=== PATIENT | female | born 1950 | race Caucasian/White ===

== ENCOUNTER 2016-11-24 15:01 | Inpatient (IN) | payer MEDICARE ==
[~2016-11-24] VITALS: Ht 165.1 cm; Wt 46.0 kg
[2016-11-24] MEDS ORDERED: LORazepam 2 MG/ML VIAL IM ONE (15:30)
[2016-11-24 16:25] LABS: BASO # 0.1 x10^3/uL (0.0-0.2); BASO % 1 % (0-3); EOS # 0.1 x10^3/uL (0.0-0.7); EOS % 2 % (0-3); HEMATOCRIT 33.4 % (36.0-47.0); LYMPH # 1.9 x10^3/uL (1.0-4.8); LYMPH % 28 % (24-48); MEAN CORPUSCULAR HEMOGLOBIN 30 pg (25-35); MEAN CORPUSCULAR HGB CONC 33 g/dL (31-37); MEAN CORPUSCULAR VOLUME 91 fL (79-100); MONO # 0.6 x10^3/uL (0.0-1.1); MONO % 9 % (0-9); NEUT # 4.2 x10^3uL (1.8-7.7); NEUT % 61 % (31-73); PLATELET COUNT 241 x10^3/uL (140-400); RED BLOOD COUNT 3.68 x10^6/uL (3.50-5.40); RED CELL DISTRIBUTION WIDTH 15.3 % (11.5-14.5); WHITE BLOOD COUNT 6.9 x10^3/uL (4.0-11.0)
[2016-11-24 16:37] LABS: ALBUMIN 3.1 g/dL (3.4-5.0); ALBUMIN/GLOBULIN RATIO 0.9 (1.0-1.7); ALK PHOS 62 U/L (46-116); ALT (SGPT) 15 U/L (14-59); ANION GAP 6 (6-14); AST (SGOT) 10 U/L (15-37); BLOOD UREA NITROGEN 21 mg/dL (7-20); BUN/CREATININE RATIO 21 (6-20); CALCIUM 8.7 mg/dL (8.5-10.1); CARBON DIOXIDE 29 mmol/L (21-32); CHLORIDE 107 mmol/L (98-107); GFR 55.8; GLUCOSE 85 mg/dL (70-99); MAGNESIUM 2.3 mg/dL (1.8-2.4); POTASSIUM 3.9 mmol/L (3.5-5.1); SODIUM 142 mmol/L (136-145); TOTAL BILIRUBIN 0.3 mg/dL (0.2-1.0); TOTAL PROTEIN 6.6 g/dL (6.4-8.2)
[2016-11-24 16:38] LABS: VAL ACID 71 mcg/mL (50-100)
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
[2016-11-24 16:58] LABS: BILIRUBIN,URINE NEG (NEG); CLARITY,URINE CLEAR; COLOR,URINE YELLOW; GLUCOSE,URINE NEG (NEG)
[2016-11-24 16:59] LABS: NITRITE,URINE NEG (NEG); UROBILINOGEN,URINE 0.2 mg/dL (0.2 mg/dL)
[2016-11-24 17:00] LABS: SQUAMOUS EPITHELIAL CELL,UR OCC /LPF; WBC,URINE OCC /HPF (0-4)
--- NOTE | 2016-11-24 20:00 | NUR ---
Pt arrived on [facility]
--- NOTE | 2016-11-24 20:00 | NUR ---
Pt arrived on [facility] via gurney. Pt transfer to low position bed in room 213. Pt not answering any of this nurses questions, is mumbling at times. Pt keeping her eyes closed during assessment. Lungs clear, dim. bases bilat. Listed on intake form, pt is a smoker. Skin warm and dry with poor tenting, pale in color. BS active, LBM unknown. Noted numerous bruising on both arms. Noted healed surgical scars on left knee with noted abnormality and is larger in size, compared to right knee. Left knee- no redness and is not warm to touch. Ambulates independently without assistive devices noted on intake form. Ht-5' 5", Wt- 99.6, BP 100/50, P-64, T-97.7, R-20, O2Sat- 94% Admit Dx-Dementia with BD. Dr. West notified. Dr. Velasquez on the unit and saw pt. at this time.
--- NOTE | 2016-11-24 22:57 | HP ---
ADMIT DATE: 11/24/2016 PSYCHIATRIC ADMISSION HISTORY/EVALUATION IDENTIFYING DATA: The patient is a 66-year-old female referred to us from [facility], [place], [place] by Dr. Mitchell, her primary care physician Dr. Nichole her psychiatrist on account of increasing confusion, being non redirectable, combative with staff and roommate. The patient's behaviors have been deemed to be dangerous, unmanageable, has failed outpatient psychiatric interventions resulting in this referral. The patient was seen individually evening of 11/24/2016. Previously discussed with nursing staff, reviewed information from residential, reviewed current past records. CHIEF COMPLAINT: "No." The patient is perhaps oriented to herself . HISTORY OF PRESENT ILLNESS: The patient has a history of dementia, Alzheimer's vascular type. She has been residing at the above residential for sometime and over the last few days, getting increasingly agitated, paranoid, delusional, aggressive. Symptoms have been worsening for about 2 months, much worse for the last few days. She has had some sleep and appetite changes. No clear suicidal or homicidal ideation. No history of bipolar disorder. PAST PSYCHIATRIC HISTORY: As above. PAST MEDICAL HISTORY: She is extremely hard of hearing, has left lower plates, history of pelvic fracture. DRUG ALLERGIES: Negative. CODE STATUS: DNR. FAMILY HISTORY: The patient's brother committed suicide. SOCIAL HISTORY: No history of alcohol, drug abuse, physical, sexual or elder abuse. She is not known to be a perpetrator. CURRENT PSYCHOTROPICS: Reviewed on the electronic medical administration records. MENTAL STATUS EXAM: The patient was seen individually shortly after she arrived in the unit. She is oriented to herself. Insight, judgment, recent and remote memory, attention, concentration, fund of knowledge poor consistent with her diagnosis. LABORATORY DATA: Reviewed. IMPRESSION: Major neurocognitive disorder, Alzheimer, vascular with depression, delusion, behavioral disturbance; anxiety disorder, unspecified; impulse control disorder, unspecified. Rest diagnoses as above. PLAN: Admit to the Geropsychiatry unit at [facility]. I will see the patient daily individually from a psychiatric standpoint. Medical followup per Dr. Patel /Dr. West. Observe the patient's baseline, then adjust psychotropics as clinically indicated. MAN Panchito SCHROEDER MD DR: Lupillo JOB#: [id number] / [id number]
--- NOTE | 2016-11-24 23:00 | NUR ---
Pt lying in bed, with eyes closed. Pt drowsy, easily aroused when doing ADL's. Will continue to monitor and report.
[2016-11-24 23:19] VITALS: BP 100/50
[2016-11-24 23:30] LABS: BACTERIA,URINE 0 /HPF (0-FEW)
[2016-11-24] MEDS ORDERED: MAGNESIUM HYDROXIDE 2,400 MG/30 ML ORAL.SUSP. PO PRN (23:30)
[2016-11-24] MEDS ORDERED: MAG HYDROX/AL HYDROX/SIMETH 30 ML ORAL.SUSP PO PRN (23:30)
[2016-11-24] MEDS ORDERED: METHYL SALICYLATE/MENTHOL TOPICAL OINTMENT 29GM TUBE. TP PRN (23:30)
[2016-11-24] MEDS ORDERED: ACETAMINOPHEN 325 MG TABLET PO PRN (23:30)
[2016-11-25] MEDS ORDERED: IBUP400T18 PO (00:36)
[2016-11-25] MEDS ORDERED: TRAM50TA PO (00:36)
[2016-11-25] MEDS ORDERED: MELA3TAB2 PO (00:36)
[2016-11-25] MEDS ORDERED: ALPR0.254 PO (00:36)
[2016-11-25] MEDS ORDERED: ATOR10TA60 PO (00:36)
[2016-11-25] MEDS ORDERED: DIVA125C PO (00:36)
[2016-11-25] MEDS ORDERED: SENN1TAB7 PO (00:36)
[2016-11-25] MEDS ORDERED: TRAZ50TA15 PO (00:36)
[2016-11-25] MEDS ORDERED: BUPR150T11 PO (00:36)
[2016-11-25] MEDS ORDERED: MULT-638 PO (00:36)
[2016-11-25] MEDS ORDERED: ASPI-630 PO (00:36)
[2016-11-25] MEDS ORDERED: QUET25TA5 PO (00:36)
[2016-11-25] MEDS ORDERED: CHOL2000 PO (00:36)
[2016-11-25] MEDS ORDERED: IBUPROFEN 400 MG TABLET. PO PRN (00:45)
[2016-11-25] MEDS ORDERED: traMADol 50 MG TABLET PO PRN (00:45)
--- NOTE | 2016-11-25 02:00 | NUR ---
Pt drowsy, lying in bed with eyes closed. Pt easily aroused when doing ADL's. Will continue to monitor and report.
[2016-11-25 06:09] VITALS: BP 105/61
--- NOTE | 2016-11-25 06:23 | ACF ---
Admission Criteria Forms [facility] Clinical Indications for Admission to Inpatient Care (Place 'X' for any and all applicable criteria): Hospital admission is needed for appropriate care of the patient because of ANY ONE of the following[A] (3)(4)(5): [ ]I. Inpatient behavioral care is needed as indicated by ALL of the following: [ ]a) Treatment is needed because of patient risk due to ANY ONE of the following: [ ]i) Imminent danger to self due to ANY ONE of the following ( 7)(8): [ ]1) Imminent risk for recurrence of a suicide attempt or act of serious self-harm as indicated by ALL of the following: [ ]A. Very recent suicide attempt or deliberate act of serious self-harm [ ]B. Absence of sufficient relief of the action' s precipitants [ ]2) Current plan for suicide or serious self-harm [ ]3) Persistent thoughts of suicide or serious self- harm that cannot be adequately monitored at a lower level of care because of ANY ONE of the following: [ ]A. Insufficient behavioral care provider availability [ ]B. Inadequate patient support system [ ]C. Patient characteristics such as high impulsivity or unreliability [ ]D. Ruminative flooding; uncontrollable and overwhelming profusion of negative thoughts [ ]E. Frantic hopelessness; fatalistic conviction that life will not improve along with oppressive sense of entrapment and doom [ ]F. Active substance use disorder is present [ ]G. Ready access to lethal means is present [ ]ii) Imminent danger to others due to ANY ONE of the following( 10)(11): [ ]1) Imminent risk for recurrence of an attempt to seriously harm another as indicated by ALL of the following: [ ]A. Very recent attempt to seriously harm another [ ]B. Absence of sufficient relief of the action' s precipitants [ ]2) Current plan for homicide or seriously harming another [ ]3) Command auditory hallucination for serious self harm to self or others [ ]4) Persistent thoughts of homicide or seriously harming another that cannot be adequately monitored at a lower level of care because of ANY ONE of the following: [ ]A. Insufficient behavioral care provider availability [ ]B. Inadequate patient support system [ ]C. Patient characteristics such as high impulsivity or unreliability [ ]D. Active substance use disorder is present [ ]E. Ready access to lethal means is present [ ]iii) Behavioral health disorder is present with ALL of the following: (12)(16)(17)(18): [ ]1) Severe psychiatric or behavioral symptoms are present , including ANY ONE of the following: [ ]A. Hallucinations that are very bothersome to patient or are associated with severe pressure to respond to voices(17)(18) [ ]B. Delusions that are very bothersome to patient or are associated with severe pressure to act on beliefs(17)(18) [ ]C. Disorganized speech that is almost impossible to follow(17)(18) [ ]D. Motor behavior that is almost constantly abnormal or bizarre or catatonic(17)(18) [ ]E. Severe negative symptoms (eg, severe decrease in facial expression or self-initiated behavior)(17)(18) [ ]F. Severe mitesh (eg, daily periods of extensive mood elevation or irritability)(19)(20)(21)(22) [ ]G. Severe depression (eg, daily symptoms of deep hopelessness)[C] [ ]H. Severe anxiety[D] [ ]I. Severe comorbid substance use disorder with inability to control use, intense withdrawal symptoms, or extreme negative impact on primary psychiatric disorder(2)(7)(25) [ ]J. Severe impairment in cognition, memory, judgment, or impulse control(26)(27) [ ]K. Severe impairment in behavior, including physical or verbal aggression, disruptive behaviors, or internal or external anger manifestations (eg, rumination or outbursts)(28) [ ]L. Other psychiatric symptoms which are acute or represent worsening over baseline (eg, hyperactivity, agitation, obsessions, or compulsions)(29)(30)(31) [ ]2) Severe dysfunction in daily living is present as indicated by ANY ONE of the following: [ ]A. Extreme deterioration in social interactions ( eg, threatening behaviors with little or no provocation) [ ]B. Complete withdrawal from all social interactions [ ]C. Complete neglect of self-care with associated impairment in physical status [ ]D. Extreme disruption in vegetative function (eg , life-sustaining functions such as eating) [ ]E. Complete inability to maintain any appropriate aspect of personal responsibility in any adult roles (eg, occupational, parental) [ ]b) Treatment situation and needs are appropriate for level as indicated by ANY ONE of the following(13)(16): [ ]i) Patient unwilling to participate voluntarily and requires treatment (eg, legal commitment) in an involuntary unit [ ]ii) Voluntary treatment at lower level not feasible (e.g., very short-term crisis intervention or residential care unavailable or unacceptable for patient condition) [ ]iii) Need for physical restraint, seclusion, or other involuntary control (e.g., actively violent patient and adequate clinical rapport cannot be established to control violence) (25) [ ]iv) [id number] medical or nursing care to address symptoms and initiate intervention is required; specific need has been identified [ ]II. Delirium as described by ANY ONE of the following (26)(27)(28): [ ]a) Delirium due to alcohol or sedative [B] withdrawal (16)(29)(30)( 31) [ ]b) Delirium of uncertain etiology that has not responded to appropriate treatment in emergency department or urgent care setting (32)(33) [ ]c) Delirium that prevents performance of a life-sustaining function (eg, feeding or hydrating oneself) (9) [ ]III. Administration of a somatic treatment that requires edatat-zef-qngae medical or nursing care because of a potential adverse physical effect or medical comorbidity(7) [X]IV. Behavioral Health condition, symptom, or finding for which emergency and observation care have failed or are not considered appropriate The original [facility] [employer] content created by [employer] [employer] has been revised. The portions of the content which have been revised are identified through the use of italic text or in bold, and [facility] has neither reviewed nor approved the modified material. All other unmodified content is copyright [facility] [employer]. Please see references footnoted in the original [facility] edition 2016 Admission Criteria Met?: Yes HARJINDER BAR Nov 25, 2016 06:23
[2016-11-25] MEDS: NICOTINE 14MG PATCH. TD SCH (09:00)
[2016-11-25] MEDS ORDERED: buPROPion SR 150 MG TABLET.SA PO SCH (09:00)
--- NOTE | 2016-11-25 09:00 | NUR ---
Patient's Piotr called to ask what the plan was for his 's care. Piotr became upset and wanted to know why she was even brought to the hospital. This RN explained to the that she was brought in by her group home staff and after several unsuccessful attempts at contacting him the patient's sister gave verbal consent for the patient to be seen and evaluated at this hospital. Visiting hours were explained and Don requested to speak with the charge nurse. Jesusita spoke with the and explained unit procedures. Will continue to monitor.
[2016-11-25 10:25] LABS: THYROID STIM HORMONE (TSH) 1.383 uIU/mL (0.358-3.740)
[2016-11-25] MEDS: MULTIVITAMIN with MINERAL TABLET. PO SCH (10:54)
[2016-11-25] MEDS: SENNOSIDES/DOCUSATE 8.6/50MG TABLET. PO SCH ×2 (10:54→20:44)
[2016-11-25] MEDS: DIVALPROEX 125 MG CAP.SPRINK PO SCH ×3 (10:54→20:44)
[2016-11-25] MEDS: CHOLECALCIFEROL (VITAMIN D3) 1,000 UNIT TABLET PO SCH (10:54)
[2016-11-25] MEDS: QUEtiapine 25 MG TABLET. PO SCH ×2 (10:54→20:44)
[2016-11-25] MEDS: ASPIRIN 81 MG TAB.CHEW PO SCH (10:54)
--- NOTE | 2016-11-25 11:11 | NUR ---
Behavior Intervention Response and Plan: BIRP Note: Behavior: Assumed Care of patient, patient located in hallway at shift change. Patient exhibited the following behavior wandering,rambling,and sad. Brief assessment on rounds of vital signs, medication needs, lab studies, and pain. Treatment plan problems reviewed. Intervention: Patient assessed and the following interventions initiated safety checks 15 Minute Checks Cognitive Assessment , Head to toe Assessment , Medications. Response: After interactions and interventions patient responded in the following manner, Wandering , Restless ,Disorganized. Continue to assess behaviors and condition will continue to monitor throughout the shift as needed. 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 Continue to assess patient for changes in above assessment. Monitor for medication needs, pain, and safety concerns. Hourly rounding performed to ensure safe environment.
--- NOTE | 2016-11-25 11:51 | NUR ---
Patient has been provided with Practical Counseling for tobacco cessation. It included a face to face interaction and the following was discussed: Recognizing danger situations, Developing coping skills,Basic cessation information. Will follow for discharge needs and discharge planning.
[2016-11-25 14:06] LABS: T3 TOTAL 77 ng/dL (71-180); THYROXINE 5.2 ug/dL (4.5-12.0)
--- NOTE | 2016-11-25 20:20 | NUR ---
Behavior Intervention Response and Plan: BIRP Note: Behavior: Assumed Care of patient, patient located in Day Room at shift change. Patient exhibited the following behavior Restless, Wandering, Compliant. Brief assessment on rounds of vital signs, medication needs, lab studies, and pain. Treatment plan problems . Intervention: Patient assessed and the following interventions initiated safety checks 15 Minute Checks Medications , Head to toe Assessment , Cognitive Assessment. Response: After interactions and interventions patient responded in the following manner, Wandering , Restless ,Calm. Continue to assess behaviors and condition will continue to monitor throughout the shift as needed. Plan: Continue to monitor Master Treatment Plan for patient's progress toward short term goals of , Decreased Agitation, snf goals to return to previous living setting vs placement. Continue to assess patient for changes in above assessment. Monitor for medication needs, pain, and safety concerns. Hourly rounding performed to ensure safe environment.
[2016-11-25] MEDS: MIRTAZAPINE 7.5 MG TABLET. PO SCH (20:44)
[2016-11-25] MEDS: ATORVASTATIN CALCIUM 10 MG TABLET. PO SCH (20:44)
[2016-11-25] MEDS ORDERED: traZODone 50 MG TABLET. PO SCH (21:00)
--- NOTE | 2016-11-25 21:16 | PDOC ---
Exam Ty Demential Exam: Ty Note: Please also refer to the separate dictated note~for this date of service dictated separately.~Patient seen individually. Discussed the patient with Nursing staff reviewed the chart.~Reviewed interim history and current functioning. Reviewed vital signs,~Labs/ Radiology~and current medications noted below. Continue current treatment with the changes noted in the dictated addendum note Assessment: Vital Signs: Vital Signs Date Time Temp Pulse Resp B/P (MAP) Pulse Ox O2 Delivery O2 Flow Rate FiO2 11/25/16 06:09 98.0 54 20 105/61 (76) 96 11/24/16 15:01 Room Air I&O Intake and Output 11/25/16 07:00 # Voids 1 Labs: Laboratory Tests Test 11/25/16 17:07 11/25/16 19:15 Glucose (Fingerstick) 99 mg/dL (70-99) 113 mg/dL (70-99) H Current Medications: Meds: Current Medications Lorazepam (Ativan) 2 mg 1X ONCE IM Last administered on 11/24/16 15:20; Start 11/24/16 at 15:30; Stop 11/24/16 at 15:31; Status DC Acetaminophen (Tylenol) 650 mg PRN Q6HRS PRN PO MILD PAIN / TEMP; Start at 23:30 Multi-Ingredient Ointment (Analgesic Aspen) 1 nataly PRN QID PRN TP MUSCLE PAIN; Start 11/24/16 at 23:30 Al Hydroxide/Mg Hydroxide (Mylanta Plus Xs) 15 ml PRN AFTMEALHC PRN PO DYSPEPSIA; Start 11/24/16 at 23:30 Magnesium Hydroxide (Milk Of Magnesia) 2,400 mg PRN QHS PRN PO CONSTIPATION; Start 11/24/16 at 23:30 Nicotine (Nicoderm Cq 14mg) 1 patch DAILY TD ; Start 11/25/16 at 09:00 Alprazolam (Xanax) 0.25 mg PRN Q8HRS PRN PO ANXIETY / AGITATION; Start at 00:45 Bupropion HCl (Wellbutrin Sr) 150 mg DAILY PO Last administered on 11/25/16 10 :53; Start 11/25/16 at 09:00; Stop 11/25/16 at 18:44; Status DC Divalproex Sodium (Depakote Sprinkles) 250 mg TID PO Last administered on 20:44; Start 11/25/16 at 09:00 Quetiapine Fumarate (SEROquel) 75 mg BID PO Last administered on 11/25/16 20: 44; Start 11/25/16 at 09:00 Trazodone HCl (Desyrel) 25 mg QHS PO Last administered on 11/25/16 20:44; Start 11/25/16 at 21:00 Melatonin 6 mg PRN QHS PRN PO INSOMNIA; Start 11/25/16 at 01:00 Aspirin (Children'S Aspirin) 81 mg DAILY PO Last administered on 11/25/16 10: 54; Start 11/25/16 at 09:00 Atorvastatin Calcium (Lipitor) 10 mg QHS PO Last administered on 11/25/16 20: 44; Start 11/25/16 at 21:00 Ibuprofen (Motrin) 400 mg PRN Q4HRS PRN PO MODERATE PAIN; Start 11/25/16 at 00: 45 Multivitamins/ Calcium (Thera-M Plus) 1 tab DAILY PO Last administered on 10:54; Start 11/25/16 at 09:00 Senna/Docusate Sodium (Senna Plus) 2 tab BID PO Last administered on 11/25/16 20:44; Start 11/25/16 at 09:00 Tramadol HCl (Ultram) 50 mg PRN Q8HRS PRN PO MODERATE PAIN; Start 11/25/16 at 00:45 Vitamin D (Vitamin D3) 2,000 unit DAILY PO Last administered on 11/25/16 10:54 ; Start 11/25/16 at 09:00 Escitalopram Oxalate (Lexapro) 5 mg DAILY PO ; Start 11/26/16 at 09:00 Mirtazapine (Remeron) 7.5 mg QHS PO Last administered on 11/25/16 20:44; Start 11/25/16 at 21:00 Active Scripts Active Reported Bupropion Hcl Sr (Bupropion Hcl) 150 Mg Tablet.er 150 Mg PO DAILY Ibuprofen 400 Mg Tablet 400 Mg PO PRN Q4HRS PRN Tramadol Hcl (Tramadol HCl) 50 Mg Tablet 50 Mg PO PRN Q8HRS PRN Alprazolam 0.25 Mg Tablet 0.25 Mg PO PRN Q8HRS PRN Senna-Docusate Sodium Tablet (Sennosides/Docusate Sodium) 1 Each Tablet 2 Tab PO BID Depakote Sprinkle (Divalproex Sodium) 125 Mg Cap.sprink 250 Mg PO TID Trazodone Hcl 50 Mg Tablet 25 Mg PO QHS Melatonin 3 Mg Tablet 6 Mg PO QHS Atorvastatin Calcium 10 Mg Tablet 10 Mg PO QHS Vitamin D (Cholecalciferol (Vitamin D3)) 2,000 Unit Capsule 2,000 Unit PO DAILY Seroquel (Quetiapine Fumarate) 25 Mg Tablet 75 Mg PO BID Thera M Plus Tablet (Multivits,Ca,Minerals/Iron/FA) 1 Each Tablet 1 Tab PO DAILY Aspirin 81 Mg Tab.chew 81 Mg PO DAILY Diagnosis: Problems: (1) Anxiety disorder (2) Dementia with behavioral disturbance (3) Dementia in Alzheimer's disease with delusions (4) Dementia in Alzheimer's disease with depression (5) Dementia, vascular, with delusions (6) Dementia, vascular, with depression (7) Impulse control disorder HUNTER SCHROEDER MD Nov 25, 2016 21:16
--- NOTE | 2016-11-26 04:02 | CONS ---
DATE OF CONSULTATION: 11/24/2016 REASON FOR CONSULTATION: Medical management. HISTORY OF PRESENT ILLNESS: The patient is a 66-year-old female patient who was referred from [facility] by her primary care physician as she has failed outpatient psychiatric treatment on the account of increasing confusion and being non-directable, combative with the staff and he roommates. Her behavior was deemed dangerous, unmanageable, and was admitted here for inpatient psychiatric stabilization. The patient herself has dementia for almost 8 years. She is very hard of hearing, does not give any useful information. PAST MEDICAL HISTORY: Significant for severe sensorineural deafness, history of fall and pelvic fracture, hyperlipidemia, osteoarthritis, osteoporosis, and vitamin D deficiency. PAST SURGICAL HISTORY: Unremarkable. FAMILY HISTORY: The patient's brother has committed suicide. SOCIAL HISTORY: She is a resident at [facility]. She does not smoke, drink alcohol or use any recreational drugs. ALLERGIES: She has no known drug allergies. CODE STATUS: DNR. MEDICATIONS: She is currently on the following medications: She is on alprazolam 0.5 mg every 8 hours, aspirin 81 mg once a day, atorvastatin calcium 10 mg at bedtime, Wellbutrin extended release 150 mg daily, cholecalciferol 2000 units once a day, divalproex 250 mg 3 times a day, ibuprofen 400 mg every 4 hours as needed, melatonin 6 mg at bedtime, multivitamin with mineral 1 tablet once a day, Seroquel 75 mg p.o. b.i.d., Senna-S 2 tablets twice a day, tramadol 50 mg 8 hours, and trazodone 25 mg at bedtime. REVIEW OF SYSTEMS: Unobtainable. PHYSICAL EXAMINATION: GENERAL: On examining her, she looked well and was clearly in no apparent respiratory distress. She is pale, cachectic, but no jaundice, cyanosis or thyromegaly. No jugular venous distention. No limb edema. VITAL SIGNS: Her heart rate was 54, blood pressure was 105/61, temperature was 98, respiratory rate 20, and oxygen saturation was 96%. HEAD, EYES, EAR, NOSE, AND THROAT: Showed normocephalic, atraumatic. NECK: Supple. HEART: Showed normal first and second heart sounds. No gallop, rub or murmur. CHEST: Clear to auscultation. No crepitation or rhonchi. ABDOMEN: Distended, soft, and nontender. NEUROLOGIC: She is hard of hearing; however, all other cranial nerves are intact. EXTREMITIES: She moves extremities without difficulty. She ambulates without assistance or assistive devices. LABORATORY DATA: Showed a white cell count 6900, hemoglobin 11, hematocrit 33, MCV 91, and platelet count 241,000. Her chemistry showed a serum sodium 142, potassium 3.9, chloride 107, bicarbonate 29, anion gap of 6, BUN 21, creatinine 1, estimated GFR was 56 mL per minute. Her glucose was 85, calcium was 8.7, magnesium was 2.3. Total bilirubin, AST, ALT, alkaline phosphatase were normal. His total protein was 6.6, albumin 3.1. Her serum iron was 36, total iron binding capacity was 300 and percent saturation was 12%. Her triglycerides were 100, total cholesterol 115, LDL was 47, VLDL 20, and cholesterol to HDL cholesterol ratio was 2. Her TSH was 1.383. Her urinalysis was essentially unremarkable and toxic screen showed her valproic acid to be 71 mcg/mL, which is well within therapeutic range. ASSESSMENT AND PLAN: In summary, this is a 66-year-old female patient who was admitted from her [facility] on the account of increasing confusion, non-redirectable, combative with the staff, and roommate, and she is here for inpatient psychiatric stabilization. She has had multiple medical problems including hyperlipidemia, osteoarthritis, osteoporosis, vitamin D deficiency, and severe sensorineural deafness. Her vital signs are stable. Her lab work is well within acceptable range. She has mild protein-calorie malnutrition with albumin was 3.1. She has mild anemia, hemoglobin of 11, hematocrit 33, this seems to be normochromic and normocytic, although her iron studies showed that total iron binding capacity was 300 and ibuprofen might be starting to cause the iron deficiency anemia. All in all, she seemed to be medically stable. I will follow all her labs closely and she might require eventually iron and ascorbic acid supplement. Thank you, Dr. Velasquez for allowing me to participate in the care of this patient. CYRIL NAJERA MD DR: BRODY/ivan JOB#: [id number] / [id number]
[2016-11-26 06:20] VITALS: BP 123/86
[2016-11-26] MEDS: NICOTINE 14MG PATCH. TD SCH (09:19)
[2016-11-26] MEDS: ASPIRIN 81 MG TAB.CHEW PO SCH (09:20)
[2016-11-26] MEDS: MULTIVITAMIN with MINERAL TABLET. PO SCH (09:20)
[2016-11-26] MEDS: CHOLECALCIFEROL (VITAMIN D3) 1,000 UNIT TABLET PO SCH (09:20)
[2016-11-26] MEDS: QUEtiapine 25 MG TABLET. PO SCH ×2 (09:20→20:00)
[2016-11-26] MEDS: SENNOSIDES/DOCUSATE 8.6/50MG TABLET. PO SCH ×2 (09:20→20:00)
[2016-11-26] MEDS: DIVALPROEX 125 MG CAP.SPRINK PO SCH ×3 (09:20→20:00)
[2016-11-26] MEDS: ESCITALOPRAM 5 MG TABLET PO SCH (09:21)
--- NOTE | 2016-11-26 10:00 | NUR ---
THERAPEUTIC RECREATION GROUP NOTE TITLE :Color Your Flag ACTIVITY : Arts and Crafts GOAL : Increase creativity and fine motor functioning, reduce stress, anxiety. DURATION : Available for 90 minutes RESPONSE : No participation.
--- NOTE | 2016-11-26 11:22 | NUR ---
Behavior Intervention Response and Plan: BIRP Note: Behavior: Assumed Care of patient, patient located in Day Room at shift change. Patient exhibited the following behavior Restless, Calm, Disorganized. Brief assessment on rounds of vital signs, medication needs, lab studies, and pain. Treatment plan problems 1 and 2. Intervention: Patient assessed and the following interventions initiated safety checks 15 Minute Checks Cognitive Assessment , Head to toe Assessment , Medications. Response: After interactions and interventions patient responded in the following manner, Disorganized , Wandering ,Compliant. Continue to assess behaviors and condition will continue to monitor throughout the shift as needed. Plan: Continue to monitor Master Treatment Plan for patient's progress toward short term goals of Decreased Agitation, Decreased Aggression, fpc goals to return to previous living setting vs placement. Continue to assess patient for changes in above assessment. Monitor for medication needs, pain, and safety concerns. Hourly rounding performed to ensure safe environment.
--- NOTE | 2016-11-26 13:23 | NUR ---
HU called pt with number provided [phone] unable to leave message. HU will try again at a later time.
--- NOTE | 2016-11-26 13:24 | NUR ---
SW reviewed pt insurance upon admit. Face sheet, intake states pt insurance is Medicare, and(c-Sn[employer]-not in chart, SW unable to review.)
--- NOTE | 2016-11-26 13:30 | NUR ---
THERAPEUTIC RECREATION GROUP NOTE TITLE :Musical Flags ACTIVITY : Activities and Games GOAL : Increase alertness/focus, socialization, group cohesion DURATION : 40 Minutes RESPONSE : No participation.
[2016-11-26 15:56] VITALS: BP 158/83
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
--- NOTE | 2016-11-26 16:31 | NUR ---
SW met with pt one on one; pt unable to give goal or information around PSA as pt is word Salad.
[2016-11-26] MEDS: traZODone 50 MG TABLET. PO SCH (20:00)
[2016-11-26] MEDS: ATORVASTATIN CALCIUM 10 MG TABLET. PO SCH (20:00)
[2016-11-26] MEDS: MIRTAZAPINE 7.5 MG TABLET. PO SCH (20:00)
--- NOTE | 2016-11-26 21:00 | NUR ---
Behavior Intervention Response and Plan: BIRP Note: Behavior: Assumed Care of patient, patient located in Patient Room at shift change. Patient exhibited the following behavior Restless, Disorganized, Compulsive. Brief assessment on rounds of vital signs, medication needs, lab studies, and pain. Treatment plan problems . Intervention: Patient assessed and the following interventions initiated safety checks 15 Minute Checks Cognitive Assessment , Head to toe Assessment , Medications. Response: After interactions and interventions patient responded in the following manner, Resistive , Withdrawn ,Anxious. Continue to assess behaviors and condition will continue to monitor throughout the shift as needed. Plan: Continue to monitor Master Treatment Plan for patient's progress toward short term goals of Decreased Anxiety, Medication Compliance, adjunct faculty for medical terminology goals to return to previous living setting vs placement. Continue to assess patient for changes in above assessment. Monitor for medication needs, pain, and safety concerns. Hourly rounding performed to ensure safe environment.
--- NOTE | 2016-11-26 23:16 | PDOC ---
Exam Ty Demential Exam: Ty Note: Please also refer to the separate dictated note~for this date of service dictated separately.~Patient seen individually. Discussed the patient with Nursing staff reviewed the chart.~Reviewed interim history and current functioning. Reviewed vital signs,~Labs/ Radiology~and current medications noted below. Continue current treatment with the changes noted in the dictated addendum note Assessment: Vital Signs: Vital Signs Date Time Temp Pulse Resp B/P (MAP) Pulse Ox O2 Delivery O2 Flow Rate FiO2 11/26/16 15:56 98.4 18 158/83 (108) Room Air 11/26/16 06:20 66 11/25/16 06:09 96 I&O Intake and Output 11/26/16 07:00 Intake Total 640 ml Balance 640 ml Intake Oral 640 ml Labs: Laboratory Tests Test 11/26/16 07:24 Glucose (Fingerstick) 88 mg/dL (70-99) Current Medications: Meds: Current Medications Lorazepam (Ativan) 2 mg 1X ONCE IM Last administered on 11/24/16 15:20; Start 11/24/16 at 15:30; Stop 11/24/16 at 15:31; Status DC Acetaminophen (Tylenol) 650 mg PRN Q6HRS PRN PO MILD PAIN / TEMP; Start at 23:30 Multi-Ingredient Ointment (Analgesic [place]) 1 nataly PRN QID PRN TP MUSCLE PAIN; Start 11/24/16 at 23:30 Al Hydroxide/Mg Hydroxide (Mylanta Plus Xs) 15 ml PRN AFTMEALHC PRN PO DYSPEPSIA; Start 11/24/16 at 23:30 Magnesium Hydroxide (Milk Of Magnesia) 2,400 mg PRN QHS PRN PO CONSTIPATION; Start 11/24/16 at 23:30 Nicotine (Nicoderm Cq 14mg) 1 patch DAILY TD Last administered on 11/26/16 09: 19; Start 11/25/16 at 09:00 Alprazolam (Xanax) 0.25 mg PRN Q8HRS PRN PO ANXIETY / AGITATION; Start at 00:45 Bupropion HCl (Wellbutrin Sr) 150 mg DAILY PO Last administered on 11/25/16 10 :53; Start 11/25/16 at 09:00; Stop 11/25/16 at 18:44; Status DC Divalproex Sodium (Depakote Sprinkles) 250 mg TID PO Last administered on 20:00; Start 11/25/16 at 09:00 Quetiapine Fumarate (SEROquel) 75 mg BID PO Last administered on 11/26/16 20: 00; Start 11/25/16 at 09:00 Trazodone HCl (Desyrel) 25 mg QHS PO Last administered on 11/25/16 20:44; Start 11/25/16 at 21:00; Stop 11/26/16 at 18:07; Status DC Melatonin 6 mg PRN QHS PRN PO INSOMNIA; Start 11/25/16 at 01:00 Aspirin (Children'S Aspirin) 81 mg DAILY PO Last administered on 11/26/16 09: 20; Start 11/25/16 at 09:00 Atorvastatin Calcium (Lipitor) 10 mg QHS PO Last administered on 11/26/16 20: 00; Start 11/25/16 at 21:00 Ibuprofen (Motrin) 400 mg PRN Q4HRS PRN PO MODERATE PAIN; Start 11/25/16 at 00: 45 Multivitamins/ Calcium (Thera-M Plus) 1 tab DAILY PO Last administered on 09:20; Start 11/25/16 at 09:00 Senna/Docusate Sodium (Senna Plus) 2 tab BID PO Last administered on 11/26/16 20:00; Start 11/25/16 at 09:00 Tramadol HCl (Ultram) 50 mg PRN Q8HRS PRN PO MODERATE PAIN; Start 11/25/16 at 00:45 Vitamin D (Vitamin D3) 2,000 unit DAILY PO Last administered on 11/26/16 09:20 ; Start 11/25/16 at 09:00 Escitalopram Oxalate (Lexapro) 5 mg DAILY PO Last administered on 11/26/16 09: 21; Start 11/26/16 at 09:00 Mirtazapine (Remeron) 7.5 mg QHS PO Last administered on 11/26/16 20:00; Start 11/25/16 at 21:00 Trazodone HCl (Desyrel) 50 mg QHS PO Last administered on 6/12/17at 20:00; Start 11/26/16 at 21:00 Active Scripts Active Reported Bupropion Hcl Sr (Bupropion Hcl) 150 Mg Tablet.er 150 Mg PO DAILY Ibuprofen 400 Mg Tablet 400 Mg PO PRN Q4HRS PRN Tramadol Hcl (Tramadol HCl) 50 Mg Tablet 50 Mg PO PRN Q8HRS PRN Alprazolam 0.25 Mg Tablet 0.25 Mg PO PRN Q8HRS PRN Senna-Docusate Sodium Tablet (Sennosides/Docusate Sodium) 1 Each Tablet 2 Tab PO BID Depakote Sprinkle (Divalproex Sodium) 125 Mg Cap.sprink 250 Mg PO TID Trazodone Hcl 50 Mg Tablet 25 Mg PO QHS Melatonin 3 Mg Tablet 6 Mg PO QHS Atorvastatin Calcium 10 Mg Tablet 10 Mg PO QHS Vitamin D (Cholecalciferol (Vitamin D3)) 2,000 Unit Capsule 2,000 Unit PO DAILY Seroquel (Quetiapine Fumarate) 25 Mg Tablet 75 Mg PO BID Thera M Plus Tablet (Multivits,Ca,Minerals/Iron/FA) 1 Each Tablet 1 Tab PO DAILY Aspirin 81 Mg Tab.chew 81 Mg PO DAILY Diagnosis: Problems: (1) Anxiety disorder (2) Dementia with behavioral disturbance (3) Dementia in Alzheimer's disease with delusions (4) Dementia in Alzheimer's disease with depression (5) Dementia, vascular, with delusions (6) Dementia, vascular, with depression (7) Impulse control disorder HUNTER SCHROEDER MD Nov 26, 2016 23:16
[2016-11-27 06:05] VITALS: BP 120/66
--- NOTE | 2016-11-27 09:00 | NUR ---
THERAPEUTIC RECREATION GROUP NOTE TITLE :Beach Ball Bop ACTIVITY : Movement/ Exercise GOAL : Increase morale, attention, endurance, socialization. Decrease stress/anxiety. DURATION : 50 Minutes RESPONSE : Full participation. Pt. needed guidance and support to sit and join the group. She was compliant and seated quietly. She smiled often, socialized with others when it wasn't her turn. At times, it was difficult refocusing. She randomly alternated between kicking, catching/throwing, bumping the ball back to TITLE INSURANCE EXAMINER.
[2016-11-27] MEDS: NICOTINE 14MG PATCH. TD SCH (09:11)
[2016-11-27] MEDS: SENNOSIDES/DOCUSATE 8.6/50MG TABLET. PO SCH ×2 (09:11→19:26)
[2016-11-27] MEDS: DIVALPROEX 125 MG CAP.SPRINK PO SCH ×3 (09:11→19:26)
[2016-11-27] MEDS: CHOLECALCIFEROL (VITAMIN D3) 1,000 UNIT TABLET PO SCH (09:12)
[2016-11-27] MEDS: ESCITALOPRAM 5 MG TABLET PO SCH (09:12)
[2016-11-27] MEDS: MULTIVITAMIN with MINERAL TABLET. PO SCH (09:12)
[2016-11-27] MEDS: ASPIRIN 81 MG TAB.CHEW PO SCH (09:12)
[2016-11-27] MEDS: QUEtiapine 25 MG TABLET. PO SCH ×2 (09:12→19:27)
--- NOTE | 2016-11-27 09:56 | PN ---
DATE: 11/25/2016 PSYCHIATRIC PROGRESS NOTE This is late entry of 11/25/2016, covers elements not covered in my initial note. SUBJECTIVE: The patient remains confused, wandering and restless. Per nursing report, she has been mumbling, easily distracted, resistive to cares, oral intake is poor, slept poorly the night before. REVIEW OF SYSTEMS: No CV, , eye, ENT or pulmonary system symptoms on review. Reliability poor. MENTAL STATUS EXAMINATION: Oriented to herself. Insight, judgment, recent and remote memory, attention, concentration, fund of knowledge poor, consistent with her diagnosis. Valproic acid level is 71. IMPRESSION: Major neurocognitive disorder, Alzheimer, vascular with depression with delusion, behavioral disturbance; anxiety disorder, unspecified; impulse control disorder, unspecified. PLAN: Continue Remeron 7.5 at bedtime, melatonin 6 mg at bedtime, trazodone 25 mg at bedtime, Depakote 250 t.i.d., start Remeron 7.5 at bedtime, Seroquel 75 b.i.d., change Wellbutrin to Lexapro 5 mg a day. Adjust further as clinically indicated. MAN Panchito SCHROEDER MD DR: TONIA/ivan JOB#: [id number] / [id number]
--- NOTE | 2016-11-27 11:30 | NUR ---
THERAPEUTIC RECREATION GROUP NOTE TITLE :Movement to Music: Flexibility ACTIVITY : Movement/ Exercise GOAL : Increase morale, attention, flexibility. Decrease stress/anxiety. DURATION : 20 Minutes RESPONSE : Minimal participation. Pt. did not follow along with the stretches but she danced with QUALITY ASSURANCE MONITOR BODY at the end of the group.
--- NOTE | 2016-11-27 12:19 | NUR ---
Behavior Intervention Response and Plan: BIRP Note: Behavior: Assumed Care of patient, patient located in Hallway at shift change. Patient exhibited the following behavior Wandering, Restless, Calm. Brief assessment on rounds of vital signs, medication needs, lab studies, and pain. Treatment plan problems 1 and 2. Intervention: Patient assessed and the following interventions initiated safety checks 15 Minute Checks Cognitive Assessment , Head to toe Assessment , Medications. Response: After interactions and interventions patient responded in the following manner, Wandering , Restless ,Disorganized. Continue to assess behaviors and condition will continue to monitor throughout the shift as needed. Plan: Continue to monitor Master Treatment Plan for patient's progress toward short term goals of Decreased Agitation, Decreased Aggression, terminal system operator goals to return to previous living setting vs placement. Continue to assess patient for changes in above assessment. Monitor for medication needs, pain, and safety concerns. Hourly rounding performed to ensure safe environment.
--- NOTE | 2016-11-27 14:15 | NUR ---
ACTIVITY THERAPY ASSESSMENT Completed based on observations and interview on this day at this time in the hallway. Pt. at times has difficulty paying attention and other times, fixated on things. Pt. was fidgeting with her shirt buttons. She has soft speech and she speaks in fragmented sentences that do not make sense. She needs repeat prompting, simple cues, demonstrations and hand over hand assistance. She did not follow directions when asked to shape a oil pipe inspector into a "v." She held the oil pipe inspector and mumbled, placed the end of it in her mouth and shook her head. Pt. needs guidance and structure. She is compliant and agreeable. She tires to talk to others. 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 Initial goal is aimed to increase involvement and socialization: Pt. will participate in all groups she is invited to.
[2016-11-27 16:03] VITALS: BP 119/81
--- NOTE | 2016-11-27 18:48 | NUR ---
changed diet to finger foods per Dr. Velasquez. Patient does not have long enough attention span to complete a meal and does not use silverware.
[2016-11-27] MEDS: traZODone 50 MG TABLET. PO SCH (19:26)
[2016-11-27] MEDS: MIRTAZAPINE 7.5 MG TABLET. PO SCH (19:26)
[2016-11-27] MEDS: ATORVASTATIN CALCIUM 10 MG TABLET. PO SCH (19:26)
--- NOTE | 2016-11-27 19:49 | PDOC ---
Exam Ty Demential Exam: Ty Note: Please also refer to the separate dictated note~for this date of service dictated separately.~Patient seen individually. Discussed the patient with Nursing staff reviewed the chart.~Reviewed interim history and current functioning. Reviewed vital signs,~Labs/ Radiology~and current medications noted below. Continue current treatment with the changes noted in the dictated addendum note Assessment: Vital Signs: Vital Signs Date Time Temp Pulse Resp B/P (MAP) Pulse Ox O2 Delivery O2 Flow Rate FiO2 11/27/16 16:03 97.6 84 20 119/81 (94) 11/27/16 06:05 93 Room Air I&O Intake and Output 11/27/16 07:00 Intake Total 720 ml Balance 720 ml Intake Oral 720 ml Current Medications: Meds: Current Medications Lorazepam (Ativan) 2 mg 1X ONCE IM Last administered on 11/24/16 15:20; Start 11/24/16 at 15:30; Stop 11/24/16 at 15:31; Status DC Acetaminophen (Tylenol) 650 mg PRN Q6HRS PRN PO MILD PAIN / TEMP; Start at 23:30 Multi-Ingredient Ointment (Analgesic [place]) 1 nataly PRN QID PRN TP MUSCLE PAIN; Start 11/24/16 at 23:30 Al Hydroxide/Mg Hydroxide (Mylanta Plus Xs) 15 ml PRN AFTMEALHC PRN PO DYSPEPSIA; Start 11/24/16 at 23:30 Magnesium Hydroxide (Milk Of Magnesia) 2,400 mg PRN QHS PRN PO CONSTIPATION; Start 11/24/16 at 23:30 Nicotine (Nicoderm Cq 14mg) 1 patch DAILY TD Last administered on 11/27/16 09: 11; Start 11/25/16 at 09:00 Alprazolam (Xanax) 0.25 mg PRN Q8HRS PRN PO ANXIETY / AGITATION; Start at 00:45 Bupropion HCl (Wellbutrin Sr) 150 mg DAILY PO Last administered on 11/25/16 10 :53; Start 11/25/16 at 09:00; Stop 11/25/16 at 18:44; Status DC Divalproex Sodium (Depakote Sprinkles) 250 mg TID PO Last administered on 19:26; Start 11/25/16 at 09:00 Quetiapine Fumarate (SEROquel) 75 mg BID PO Last administered on 11/27/16 19: 27; Start 11/25/16 at 09:00 Trazodone HCl (Desyrel) 25 mg QHS PO Last administered on 11/25/16 20:44; Start 11/25/16 at 21:00; Stop 11/26/16 at 18:07; Status DC Melatonin 6 mg PRN QHS PRN PO INSOMNIA; Start 11/25/16 at 01:00 Aspirin (Children'S Aspirin) 81 mg DAILY PO Last administered on 11/27/16 09: 12; Start 11/25/16 at 09:00 Atorvastatin Calcium (Lipitor) 10 mg QHS PO Last administered on 11/27/16 19: 26; Start 11/25/16 at 21:00 Ibuprofen (Motrin) 400 mg PRN Q4HRS PRN PO MODERATE PAIN; Start 11/25/16 at 00: 45 Multivitamins/ Calcium (Thera-M Plus) 1 tab DAILY PO Last administered on 09:12; Start 11/25/16 at 09:00 Senna/Docusate Sodium (Senna Plus) 2 tab BID PO Last administered on 11/27/16 19:26; Start 11/25/16 at 09:00 Tramadol HCl (Ultram) 50 mg PRN Q8HRS PRN PO MODERATE PAIN; Start 11/25/16 at 00:45 Vitamin D (Vitamin D3) 2,000 unit DAILY PO Last administered on 11/27/16 09:12 ; Start 11/25/16 at 09:00 Escitalopram Oxalate (Lexapro) 5 mg DAILY PO Last administered on 11/27/16 09: 12; Start 11/26/16 at 09:00 Mirtazapine (Remeron) 7.5 mg QHS PO Last administered on 11/27/16 19:26; Start 11/25/16 at 21:00 Trazodone HCl (Desyrel) 50 mg QHS PO Last administered on 11/27/16 19:26; Start 11/26/16 at 21:00 Active Scripts Active Reported Bupropion Hcl Sr (Bupropion Hcl) 150 Mg Tablet.er 150 Mg PO DAILY Ibuprofen 400 Mg Tablet 400 Mg PO PRN Q4HRS PRN Tramadol Hcl (Tramadol HCl) 50 Mg Tablet 50 Mg PO PRN Q8HRS PRN Alprazolam 0.25 Mg Tablet 0.25 Mg PO PRN Q8HRS PRN Senna-Docusate Sodium Tablet (Sennosides/Docusate Sodium) 1 Each Tablet 2 Tab PO BID Depakote Sprinkle (Divalproex Sodium) 125 Mg Cap.sprink 250 Mg PO TID Trazodone Hcl 50 Mg Tablet 25 Mg PO QHS Melatonin 3 Mg Tablet 6 Mg PO QHS Atorvastatin Calcium 10 Mg Tablet 10 Mg PO QHS Vitamin D (Cholecalciferol (Vitamin D3)) 2,000 Unit Capsule 2,000 Unit PO DAILY Seroquel (Quetiapine Fumarate) 25 Mg Tablet 75 Mg PO BID Thera M Plus Tablet (Multivits,Ca,Minerals/Iron/FA) 1 Each Tablet 1 Tab PO DAILY Aspirin 81 Mg Tab.chew 81 Mg PO DAILY Diagnosis: Problems: (1) Anxiety disorder (2) Dementia with behavioral disturbance (3) Dementia in Alzheimer's disease with delusions (4) Dementia in Alzheimer's disease with depression (5) Dementia, vascular, with delusions (6) Dementia, vascular, with depression (7) Impulse control disorder HUNTER SCHROEDER MD Nov 27, 2016 19:49
--- NOTE | 2016-11-27 21:00 | NUR ---
Behavior Intervention Response and Plan: BIRP Note: Behavior: Assumed Care of patient, patient located in Day Room at shift change. Patient exhibited the following behavior Wandering, Restless, Calm. Brief assessment on rounds of vital signs, medication needs, lab studies, and pain. Treatment plan problems . Intervention: Patient assessed and the following interventions initiated safety checks 15 Minute Checks Cognitive Assessment , Head to toe Assessment , Medications. Response: After interactions and interventions patient responded in the following manner, Appropriate , Cooperative ,Compliant. Continue to assess behaviors and condition will continue to monitor throughout the shift as needed. Plan: Continue to monitor Master Treatment Plan for patient's progress toward short term goals of Decreased Anxiety, Improved Mood, terminal gauger goals to return to previous living setting vs placement. Continue to assess patient for changes in above assessment. Monitor for medication needs, pain, and safety concerns. Hourly rounding performed to ensure safe environment.
--- NOTE | 2016-11-28 00:18 | PN ---
DATE: 11/26/2016 This late entry 11/26/2016 covers elements not covered in my initial note. The patient slept 5 hours. Has been intrusive, wandering, confused. REVIEW OF SYSTEMS: No CV, , eye, ENT or pulmonary system symptoms on review. Reliability poor. MENTAL STATUS EXAM: Oriented to herself. Insight, judgment, recent and remote memory, attention, concentration, fund of knowledge poor, consistent with her diagnosis. She is quite hard of hearing. LABORATORY DATA: Reviewed. IMPRESSION: Major neurocognitive disorder, Alzheimer, vascular with depression, delusion and behavioral disturbance. Rest unchanged. PLAN: The patient slept 5 hours previous night, increase trazodone from 25 at bedtime to 50 at bedtime, maintain Depakote at current dosage level 71 along with Lexapro, Seroquel, Remeron, melatonin, and Xanax p.r.n. HUNTER SCHROEDER MD DR: TONIA/ivan JOB#: [id number] / [id number]
[2016-11-28 05:30] VITALS: BP 123/56
[2016-11-28] MEDS: ASPIRIN 81 MG TAB.CHEW PO SCH (09:15)
[2016-11-28] MEDS: DIVALPROEX 125 MG CAP.SPRINK PO SCH ×3 (09:16→20:05)
[2016-11-28] MEDS: ESCITALOPRAM 5 MG TABLET PO SCH (09:16)
[2016-11-28] MEDS: SENNOSIDES/DOCUSATE 8.6/50MG TABLET. PO SCH ×2 (09:17→20:05)
[2016-11-28] MEDS: QUEtiapine 25 MG TABLET. PO SCH ×2 (09:17→20:06)
[2016-11-28] MEDS: MULTIVITAMIN with MINERAL TABLET. PO SCH (09:18)
[2016-11-28] MEDS: CHOLECALCIFEROL (VITAMIN D3) 1,000 UNIT TABLET PO SCH (09:19)
[2016-11-28] MEDS: NICOTINE 14MG PATCH. TD SCH (09:19)
--- NOTE | 2016-11-28 11:15 | NUR ---
THERAPEUTIC RECREATION GROUP NOTE TITLE :Match the Flag ACTIVITY : Cognitive Stimulation GOAL : Maintain or improve cognitive functioning and memory. DURATION : 45 Minutes RESPONSE : No participation.
--- NOTE | 2016-11-28 12:39 | PN ---
DATE: 11/27/2016 PSYCHIATRIC PROGRESS NOTE This is a late entry 11/27/2016, covers elements not covered in my initial note. SUBJECTIVE: The patient remains confused, wanders the hallways, oblivious of her surroundings, restless, unable to sit still for supper as I attempted to assist her with this. Previous evening, she was to medications, took her meds on 11/27/2016. REVIEW OF SYSTEMS: No CV, , eye, ENT or pulmonary system symptoms on review. Reliability poor. MENTAL STATUS EXAM: Oriented to herself. Insight, judgment, recent and remote memory, attention, concentration, fund of knowledge poor, consistent with her diagnoses mentioned in my initial note. IMPRESSION: Major neurocognitive disorder, Alzheimer, vascular with behavioral disturbance, delusion, depression. Rest unchanged. PLAN: Continue psychotropics mentioned in my initial note. MAN Panchito SCHROEDER MD DR: TONIA/ivan JOB#: [id number] / [id number]
[2016-11-28 16:07] VITALS: BP 99/68
[2016-11-28] MEDS ORDERED: BENZOCAINE 20% ORAL GEL 11.9GM TUBE. TP PRN (17:15)
[2016-11-28] MEDS: ACETAMINOPHEN 325 MG TABLET PO SCH (17:31)
[2016-11-28] MEDS: AMOXICILLIN 250 MG CAPSULE PO SCH (20:04)
[2016-11-28] MEDS: ATORVASTATIN CALCIUM 10 MG TABLET. PO SCH (20:05)
[2016-11-28] MEDS: MIRTAZAPINE 7.5 MG TABLET. PO SCH (20:05)
[2016-11-28] MEDS: traZODone 50 MG TABLET. PO SCH (20:05)
--- NOTE | 2016-11-28 20:22 | PDOC ---
Exam Ty Demential Exam: Ty Note: Please also refer to the separate dictated note~for this date of service dictated separately.~Patient seen individually. Discussed the patient with Nursing staff reviewed the chart.~Reviewed interim history and current functioning. Reviewed vital signs,~Labs/ Radiology~and current medications noted below. Continue current treatment with the changes noted in the dictated addendum note Assessment: Vital Signs: Vital Signs Date Time Temp Pulse Resp B/P (MAP) Pulse Ox O2 Delivery O2 Flow Rate FiO2 11/28/16 16:07 78 16 99/68 (78) 96 11/28/16 05:30 98.6 Room Air I&O Intake and Output 11/28/16 07:00 Intake Total 840 ml Balance 840 ml Intake Oral 840 ml # Bowel Movements 1 Current Medications: Meds: Current Medications Lorazepam (Ativan) 2 mg 1X ONCE IM Last administered on 11/24/16 15:20; Start 11/24/16 at 15:30; Stop 11/24/16 at 15:31; Status DC Acetaminophen (Tylenol) 650 mg PRN Q6HRS PRN PO MILD PAIN / TEMP; Start at 23:30; Stop 11/28/16 at 18:00; Status DC Multi-Ingredient Ointment (Analgesic [place]) 1 nataly PRN QID PRN TP MUSCLE PAIN; Start 11/24/16 at 23:30 Al Hydroxide/Mg Hydroxide (Mylanta Plus Xs) 15 ml PRN AFTMEALHC PRN PO DYSPEPSIA; Start 11/24/16 at 23:30 Magnesium Hydroxide (Milk Of Magnesia) 2,400 mg PRN QHS PRN PO CONSTIPATION; Start 11/24/16 at 23:30 Nicotine (Nicoderm Cq 14mg) 1 patch DAILY TD Last administered on 11/28/16 09: 19; Start 11/25/16 at 09:00 Alprazolam (Xanax) 0.25 mg PRN Q8HRS PRN PO ANXIETY / AGITATION; Start at 00:45 Bupropion HCl (Wellbutrin Sr) 150 mg DAILY PO Last administered on 11/25/16 10 :53; Start 11/25/16 at 09:00; Stop 11/25/16 at 18:44; Status DC Divalproex Sodium (Depakote Sprinkles) 250 mg TID PO Last administered on 20:05; Start 11/25/16 at 09:00 Quetiapine Fumarate (SEROquel) 75 mg BID PO Last administered on 11/28/16 20: 06; Start 11/25/16 at 09:00 Trazodone HCl (Desyrel) 25 mg QHS PO Last administered on 11/25/16 20:44; Start 11/25/16 at 21:00; Stop 11/26/16 at 18:07; Status DC Melatonin 6 mg PRN QHS PRN PO INSOMNIA; Start 11/25/16 at 01:00 Aspirin (Children'S Aspirin) 81 mg DAILY PO Last administered on 11/28/16 09: 15; Start 11/25/16 at 09:00 Atorvastatin Calcium (Lipitor) 10 mg QHS PO Last administered on 11/28/16 20: 05; Start 11/25/16 at 21:00 Ibuprofen (Motrin) 400 mg PRN Q4HRS PRN PO MODERATE PAIN; Start 11/25/16 at 00: 45 Multivitamins/ Calcium (Thera-M Plus) 1 tab DAILY PO Last administered on 09:18; Start 11/25/16 at 09:00 Senna/Docusate Sodium (Senna Plus) 2 tab BID PO Last administered on 11/28/16 20:05; Start 11/25/16 at 09:00 Tramadol HCl (Ultram) 50 mg PRN Q8HRS PRN PO MODERATE PAIN; Start 11/25/16 at 00:45 Vitamin D (Vitamin D3) 2,000 unit DAILY PO Last administered on 11/28/16 09:19 ; Start 11/25/16 at 09:00 Escitalopram Oxalate (Lexapro) 5 mg DAILY PO Last administered on 11/28/16 09: 16; Start 11/26/16 at 09:00 Mirtazapine (Remeron) 7.5 mg QHS PO Last administered on 11/28/16 20:05; Start 11/25/16 at 21:00 Trazodone HCl (Desyrel) 50 mg QHS PO Last administered on 11/28/16 20:05; Start 11/26/16 at 21:00 Acetaminophen (Tylenol) 650 mg [id number] PO Last administered on 11/28/16 17:31; Start 11/28/16 at 18:00 Benzocaine (Ora-Jel Maximum) 1 nataly PRN QID PRN TP ORAL PAIN; Start 11/28/16 at 17:15 Amoxicillin (Amoxil) 500 mg [id number] PO Last administered on 11/28/16 20:04; Start 11/28/16 at 21:00 Buspirone HCl (Buspar) 5 mg [id number] PO ; Start 11/29/16 at 09:00 Active Scripts Active Reported Bupropion Hcl Sr (Bupropion Hcl) 150 Mg Tablet.er 150 Mg PO DAILY Ibuprofen 400 Mg Tablet 400 Mg PO PRN Q4HRS PRN Tramadol Hcl (Tramadol HCl) 50 Mg Tablet 50 Mg PO PRN Q8HRS PRN Alprazolam 0.25 Mg Tablet 0.25 Mg PO PRN Q8HRS PRN Senna-Docusate Sodium Tablet (Sennosides/Docusate Sodium) 1 Each Tablet 2 Tab PO BID Depakote Sprinkle (Divalproex Sodium) 125 Mg Cap.sprink 250 Mg PO TID Trazodone Hcl 50 Mg Tablet 25 Mg PO QHS Melatonin 3 Mg Tablet 6 Mg PO QHS Atorvastatin Calcium 10 Mg Tablet 10 Mg PO QHS Vitamin D (Cholecalciferol (Vitamin D3)) 2,000 Unit Capsule 2,000 Unit PO DAILY Seroquel (Quetiapine Fumarate) 25 Mg Tablet 75 Mg PO BID Thera M Plus Tablet (Multivits,Ca,Minerals/Iron/FA) 1 Each Tablet 1 Tab PO DAILY Aspirin 81 Mg Tab.chew 81 Mg PO DAILY Diagnosis: Problems: (1) Anxiety disorder (2) Dementia with behavioral disturbance (3) Dementia in Alzheimer's disease with delusions (4) Dementia in Alzheimer's disease with depression (5) Dementia, vascular, with delusions (6) Dementia, vascular, with depression (7) Impulse control disorder HUNTER SCHROEDER MD Nov 28, 2016 20:22
--- NOTE | 2016-11-28 22:01 | NUR ---
Behavior Intervention Response and Plan: BIRP Note: Behavior: Assumed Care of patient, patient located in Day Room at shift change. Patient exhibited the following behavior Restless, Wandering, Disorganized. Brief assessment on rounds of vital signs, medication needs, lab studies, and pain. Treatment plan problems . Intervention: Patient assessed and the following interventions initiated safety checks 15 Minute Checks Cognitive Assessment , Head to toe Assessment , Medications. Response: After interactions and interventions patient responded in the following manner, Compliant , Delusions ,Hallucinating. Continue to assess behaviors and condition will continue to monitor throughout the shift as needed. Plan: Continue to monitor Master Treatment Plan for patient's progress toward short term goals of Medication Compliance, No harm To self/ others, jail goals to return to previous living setting vs placement. Continue to assess patient for changes in above assessment. Monitor for medication needs, pain, and safety concerns. Hourly rounding performed to ensure safe environment.
--- NOTE | 2016-11-29 01:24 | PN ---
DATE: 11/28/2016 SUBJECTIVE: This patient was seen on rounds the evening of 11/28/2016. This note covers elements not covered in my initial note. The patient slept 6 hours, has complained of toothache and is on antibiotics per Dr. West. We will check hemoglobin A1c in the morning. Speech is word salad, quite confused, restless, anxious, wandering. REVIEW OF SYSTEMS: No CV, , pulmonary, eye, ENT system symptoms on review. Reliability poor. MENTAL STATUS EXAM: Oriented to herself. Insight, judgment, recent and remote memory, attention, concentration, fund of knowledge poor, consistent with her diagnosis mentioned in my initial note. PLAN: Continue psychotropics mentioned in my initial note and start BuSpar 5 mg twice a day. Adjust further as clinically indicated. Valproic acid level therapeutic at 71. MAN Panchito SCHROEDER MD DR: TONIA/ivan JOB#: [id number] / [id number]
[2016-11-29] MEDS: ACETAMINOPHEN 325 MG TABLET PO SCH ×2 (05:31→17:02)
[2016-11-29 05:54] VITALS: BP 102/66
[2016-11-29 07:05] LABS: BASO # 0.1 x10^3/uL (0.0-0.2); BASO % 1 % (0-3); EOS # 0.1 x10^3/uL (0.0-0.7); EOS % 1 % (0-3); HEMOGLOBIN 10.7 g/dL (12.0-15.5); LYMPH # 1.9 x10^3/uL (1.0-4.8); LYMPH % 26 % (24-48); MEAN CORPUSCULAR HEMOGLOBIN 30 pg (25-35); MEAN CORPUSCULAR HGB CONC 33 g/dL (31-37); MEAN CORPUSCULAR VOLUME 90 fL (79-100); MONO # 0.7 x10^3/uL (0.0-1.1); MONO % 10 % (0-9); NEUT # 4.4 x10^3uL (1.8-7.7); NEUT % 62 % (31-73); PLATELET COUNT 218 x10^3/uL (140-400); RED BLOOD COUNT 3.54 x10^6/uL (3.50-5.40); RED CELL DISTRIBUTION WIDTH 15.4 % (11.5-14.5); WHITE BLOOD COUNT 7.1 x10^3/uL (4.0-11.0)
[2016-11-29 07:23] LABS: ALBUMIN/GLOBULIN RATIO 0.9 (1.0-1.7); ALK PHOS 56 U/L (46-116); ALT (SGPT) 12 U/L (14-59); ANION GAP 6 (6-14); AST (SGOT) 10 U/L (15-37); BLOOD UREA NITROGEN 18 mg/dL (7-20); BUN/CREATININE RATIO 23 (6-20); CALCIUM 8.3 mg/dL (8.5-10.1); CARBON DIOXIDE 29 mmol/L (21-32); CHLORIDE 107 mmol/L (98-107); CREATININE 0.8 mg/dL (0.6-1.0); GFR 72.2; GLUCOSE 85 mg/dL (70-99); MAGNESIUM 2.1 mg/dL (1.8-2.4); POTASSIUM 3.7 mmol/L (3.5-5.1); SODIUM 142 mmol/L (136-145); TOTAL BILIRUBIN 0.4 mg/dL (0.2-1.0); TOTAL PROTEIN 6.2 g/dL (6.4-8.2)
[2016-11-29 07:28] LABS: VAL ACID 66 mcg/mL (50-100)
[2016-11-29] MEDS: DIVALPROEX 125 MG CAP.SPRINK PO SCH ×3 (07:31→21:10)
[2016-11-29] MEDS: AMOXICILLIN 250 MG CAPSULE PO SCH ×3 (07:31→21:11)
[2016-11-29] MEDS: ASPIRIN 81 MG TAB.CHEW PO SCH (07:31)
[2016-11-29] MEDS: SENNOSIDES/DOCUSATE 8.6/50MG TABLET. PO SCH ×2 (07:32→21:11)
[2016-11-29] MEDS: ESCITALOPRAM 5 MG TABLET PO SCH (07:32)
[2016-11-29] MEDS: NICOTINE 14MG PATCH. TD SCH (07:33)
[2016-11-29] MEDS: CHOLECALCIFEROL (VITAMIN D3) 1,000 UNIT TABLET PO SCH (07:33)
[2016-11-29] MEDS: MULTIVITAMIN with MINERAL TABLET. PO SCH (07:33)
[2016-11-29] MEDS: QUEtiapine 25 MG TABLET. PO SCH ×2 (07:33→21:13)
[2016-11-29] MEDS: busPIRone 5 MG TABLET. PO SCH ×2 (08:23→15:06)
--- NOTE | 2016-11-29 11:00 | NUR ---
THERAPEUTIC RECREATION GROUP NOTE TITLE :Instrument Play Along ACTIVITY : Music GOAL : Increase socialization and self expression, elevate mood, stimulate memory DURATION : 60 minutes RESPONSE : No participation.
--- NOTE | 2016-11-29 14:15 | NUR ---
THERAPEUTIC RECREATION GROUP NOTE TITLE :Movie ACTIVITY : Activities and Games GOAL : Increase alertness/focus, decrease stress DURATION : 105 Minutes RESPONSE : No participation.
--- NOTE | 2016-11-29 14:20 | NUR ---
HU spoke with Tonio at facility and provided update. HU will fax over updates to facility, no other needs noted at this time.
--- NOTE | 2016-11-29 15:35 | NUR ---
HU GROUP NOTE co-facilitate German Bah LMSW TITLE: Outside! ACTIVITY: Pt. sat outside, enjoying fresh air and sunshine. PT's reminisced. TARGET BEHAVIOR: Reminisce, social skills, validation, sunlight therapy DURATION: 10:30-11:15 RESPONSE: Pt. attended group and attempted to communicate as best as possible. Pt. redirected easily.
[2016-11-29 15:59] VITALS: BP 110/78
--- NOTE | 2016-11-29 20:04 | PDOC ---
Exam Ty Demential Exam: Ty Note: Please also refer to the separate dictated note~for this date of service dictated separately.~Patient seen individually. Discussed the patient with Nursing staff reviewed the chart.~Reviewed interim history and current functioning. Reviewed vital signs,~Labs/ Radiology~and current medications noted below. Continue current treatment with the changes noted in the dictated addendum note Assessment: Vital Signs: Vital Signs Date Time Temp Pulse Resp B/P (MAP) Pulse Ox O2 Delivery O2 Flow Rate FiO2 11/29/16 15:59 97.6 78 18 110/78 (89) 96 Room Air I&O Intake and Output 11/29/16 07:00 Intake Total 660 ml Balance 660 ml Intake Oral 660 ml # Bowel Movements 1 Labs: Laboratory Tests Test 11/29/16 06:47 White Blood Count 7.1 x10^3/uL (4.0-11.0) Red Blood Count 3.54 x10^6/uL (3.50-5.40) Hemoglobin 10.7 g/dL (12.0-15.5) L Hematocrit 32.0 % (36.0-47.0) L Mean Corpuscular Volume 90 fL (79-100) Mean Corpuscular Hemoglobin 30 pg (25-35) Mean Corpuscular Hemoglobin Concent 33 g/dL (31-37) Red Cell Distribution Width 15.4 % (11.5-14.5) H Platelet Count 218 x10^3/uL (140-400) Neutrophils (%) (Auto) 62 % (31-73) Lymphocytes (%) (Auto) 26 % (24-48) Monocytes (%) (Auto) 10 % (0-9) H Eosinophils (%) (Auto) 1 % (0-3) Basophils (%) (Auto) 1 % (0-3) Neutrophils # (Auto) 4.4 x10^3uL (1.8-7.7) Lymphocytes # (Auto) 1.9 x10^3/uL (1.0-4.8) Monocytes # (Auto) 0.7 x10^3/uL (0.0-1.1) Eosinophils # (Auto) 0.1 x10^3/uL (0.0-0.7) Basophils # (Auto) 0.1 x10^3/uL (0.0-0.2) Sodium Level 142 mmol/L (136-145) Potassium Level 3.7 mmol/L (3.5-5.1) Chloride Level 107 mmol/L (98-107) Carbon Dioxide Level 29 mmol/L (21-32) Anion Gap 6 (6-14) Blood Urea Nitrogen 18 mg/dL (7-20) Creatinine 0.8 mg/dL (0.6-1.0) Estimated GFR (Cockcroft-Gault) 72.2 BUN/Creatinine Ratio 23 (6-20) H Glucose Level 85 mg/dL (70-99) Calcium Level 8.3 mg/dL (8.5-10.1) L Magnesium Level 2.1 mg/dL (1.8-2.4) Total Bilirubin 0.4 mg/dL (0.2-1.0) Aspartate Amino Transferase (AST) 10 U/L (15-37) L Alanine Aminotransferase (ALT) 12 U/L (14-59) L Alkaline Phosphatase 56 U/L (46-116) Total Protein 6.2 g/dL (6.4-8.2) L Albumin 3.0 g/dL (3.4-5.0) L Albumin/Globulin Ratio 0.9 (1.0-1.7) L Valproic Acid Level 66 mcg/mL (50-100) Valproic Acid Last Dose Date 11/28/2016 Valproic Acid Last Dose Time 2100 Current Medications: Meds: Current Medications Lorazepam (Ativan) 2 mg 1X ONCE IM Last administered on 11/24/16t 15:20; Start 11/24/16 at 15:30; Stop 11/24/16 at 15:31; Status DC Acetaminophen (Tylenol) 650 mg PRN Q6HRS PRN PO MILD PAIN / TEMP; Start at 23:30; Stop 11/28/16 at 18:00; Status DC Multi-Ingredient Ointment (Analgesic [place]) 1 nataly PRN QID PRN TP MUSCLE PAIN; Start 11/24/16 at 23:30 Al Hydroxide/Mg Hydroxide (Mylanta Plus Xs) 15 ml PRN AFTMEALHC PRN PO DYSPEPSIA; Start 11/24/16 at 23:30 Magnesium Hydroxide (Milk Of Magnesia) 2,400 mg PRN QHS PRN PO CONSTIPATION; Start 11/24/16 at 23:30 Nicotine (Nicoderm Cq 14mg) 1 patch DAILY TD Last administered on 11/29/16 07: 33; Start 11/25/16 at 09:00 Alprazolam (Xanax) 0.25 mg PRN Q8HRS PRN PO ANXIETY / AGITATION; Start at 00:45 Bupropion HCl (Wellbutrin Sr) 150 mg DAILY PO Last administered on 11/25/16 10 :53; Start 11/25/16 at 09:00; Stop 11/25/16 at 18:44; Status DC Divalproex Sodium (Depakote Sprinkles) 250 mg TID PO Last administered on 15:06; Start 11/25/16 at 09:00 Quetiapine Fumarate (SEROquel) 75 mg BID PO Last administered on 11/29/16 07: 33; Start 11/25/16 at 09:00 Trazodone HCl (Desyrel) 25 mg QHS PO Last administered on 11/25/16 20:44; Start 11/25/16 at 21:00; Stop 11/26/16 at 18:07; Status DC Melatonin 6 mg PRN QHS PRN PO INSOMNIA; Start 11/25/16 at 01:00 Aspirin (Children'S Aspirin) 81 mg DAILY PO Last administered on 11/29/16 07: 31; Start 11/25/16 at 09:00 Atorvastatin Calcium (Lipitor) 10 mg QHS PO Last administered on 11/28/16 20: 05; Start 11/25/16 at 21:00 Ibuprofen (Motrin) 400 mg PRN Q4HRS PRN PO MODERATE PAIN; Start 11/25/16 at 00: 45 Multivitamins/ Calcium (Thera-M Plus) 1 tab DAILY PO Last administered on 07:33; Start 11/25/16 at 09:00 Senna/Docusate Sodium (Senna Plus) 2 tab BID PO Last administered on 11/29/16 07:32; Start 11/25/16 at 09:00 Tramadol HCl (Ultram) 50 mg PRN Q8HRS PRN PO MODERATE PAIN; Start 11/25/16 at 00:45 Vitamin D (Vitamin D3) 2,000 unit DAILY PO Last administered on 11/29/16 07:33 ; Start 11/25/16 at 09:00 Escitalopram Oxalate (Lexapro) 5 mg DAILY PO Last administered on 11/29/16 07: 32; Start 11/26/16 at 09:00 Mirtazapine (Remeron) 7.5 mg QHS PO Last administered on 11/28/16 20:05; Start 11/25/16 at 21:00 Trazodone HCl (Desyrel) 50 mg QHS PO Last administered on 11/28/16 20:05; Start 11/26/16 at 21:00 Acetaminophen (Tylenol) 650 mg [id number] PO Last administered on 11/29/16 17:02; Start 11/28/16 at 18:00 Benzocaine (Ora-Jel Maximum) 1 nataly PRN QID PRN TP ORAL PAIN; Start 11/28/16 at 17:15 Amoxicillin (Amoxil) 500 mg [id number] PO Last administered on 11/29/16 15:06; Start 11/28/16 at 21:00 Buspirone HCl (Buspar) 5 mg [id number] PO Last administered on 11/29/16 15:06; Start 11/29/16 at 09:00 Active Scripts Active Reported Bupropion Hcl Sr (Bupropion Hcl) 150 Mg Tablet.er 150 Mg PO DAILY Ibuprofen 400 Mg Tablet 400 Mg PO PRN Q4HRS PRN Tramadol Hcl (Tramadol HCl) 50 Mg Tablet 50 Mg PO PRN Q8HRS PRN Alprazolam 0.25 Mg Tablet 0.25 Mg PO PRN Q8HRS PRN Senna-Docusate Sodium Tablet (Sennosides/Docusate Sodium) 1 Each Tablet 2 Tab PO BID Depakote Sprinkle (Divalproex Sodium) 125 Mg Cap.sprink 250 Mg PO TID Trazodone Hcl 50 Mg Tablet 25 Mg PO QHS Melatonin 3 Mg Tablet 6 Mg PO QHS Atorvastatin Calcium 10 Mg Tablet 10 Mg PO QHS Vitamin D (Cholecalciferol (Vitamin D3)) 2,000 Unit Capsule 2,000 Unit PO DAILY Seroquel (Quetiapine Fumarate) 25 Mg Tablet 75 Mg PO BID Thera M Plus Tablet (Multivits,Ca,Minerals/Iron/FA) 1 Each Tablet 1 Tab PO DAILY Aspirin 81 Mg Tab.chew 81 Mg PO DAILY Diagnosis: Problems: (1) Anxiety disorder (2) Dementia with behavioral disturbance (3) Dementia in Alzheimer's disease with delusions (4) Dementia in Alzheimer's disease with depression (5) Dementia, vascular, with delusions (6) Dementia, vascular, with depression (7) Impulse control disorder HUNTER SCHROEDER MD Nov 29, 2016 20:03
[2016-11-29] MEDS: ATORVASTATIN CALCIUM 10 MG TABLET. PO SCH (21:11)
[2016-11-29] MEDS: traZODone 50 MG TABLET. PO SCH (21:11)
[2016-11-29] MEDS: MIRTAZAPINE 7.5 MG TABLET. PO SCH (21:11)
[2016-11-29] MEDS: ALPRAZolam 0.25 MG TABLET PO PRN (23:22)
[2016-11-29] MEDS: MELATONIN 3 MG TABLET PO PRN (23:22)
[2016-11-30 03:16] LABS: HEMOGLOBIN A1C 5.1 % (4.8-5.6)
--- NOTE | 2016-11-30 04:52 | NUR ---
Behavior Intervention Response and Plan: BIRP Note: Behavior: Assumed Care of patient, patient located in Hallway at shift change. Patient exhibited the following behavior Wandering, Disorganized, Compliant. Brief assessment on rounds of vital signs, medication needs, lab studies, and pain. Treatment plan problems . Intervention: Patient assessed and the following interventions initiated safety checks 15 Minute Checks Cognitive Assessment , Medications , Nutrition. Response: After interactions and interventions patient responded in the following manner, Wandering , Restless ,Disorganized. Continue to assess behaviors and condition will continue to monitor throughout the shift as needed. Plan: Continue to monitor Master Treatment Plan for patient's progress toward short term goals of Decreased Aggression, Decreased Agitation, residential goals to return to previous living setting vs placement. Continue to assess patient for changes in above assessment. Monitor for medication needs, pain, and safety concerns. Hourly rounding performed to ensure safe environment.
[2016-11-30] MEDS: ACETAMINOPHEN 325 MG TABLET PO SCH ×2 (05:48→17:02)
--- NOTE | 2016-11-30 07:51 | PN ---
DATE: 11/29/2016 PSYCHIATRIC PROGRESS NOTE This is a late entry of 11/29/2016 covers elements not covered in my initial note. SUBJECTIVE: The patient was staffed at a treatment team meeting with the entire team along with Emily her sister attending together with Piotr her . Gathered history in detail of past history of alcohol abuse, progressive dementia for about 7 years. Family history of Alzheimer's in mother in marked paranoia, believing people are going to hurt her according to the . REVIEW OF SYSTEMS: Ambulation impaired. No CV, , pulmonary, eye system symptoms on review. MENTAL STATUS EXAM: Oriented to herself. Insight, judgment, recent and remote memory, attention, concentration, fund of knowledge poor, consistent with her diagnosis mentioned in my initial note. IMPRESSION: Major neurocognitive disorder, Alzheimer, vascular with depression, delusion and behavioral disturbance rest unchanged. Valproic acid level 66 therapeutic. Continue Depakote 250 t.i.d., Lexapro 5 mg a day, Seroquel 75 b.i.d., trazodone 50 at bedtime, Remeron 7.5 at bedtime, melatonin, Xanax p.r.n., BuSpar 5 b.i.d., may need to increase Seroquel if paranoia persists. MAN Panchito SCHROEDER MD DR: TONIA/ivan JOB#: [id number] / [id number]
[2016-11-30] MEDS: NICOTINE 14MG PATCH. TD SCH (08:15)
[2016-11-30] MEDS: QUEtiapine 25 MG TABLET. PO SCH ×2 (08:16→20:27)
[2016-11-30] MEDS: DIVALPROEX 125 MG CAP.SPRINK PO SCH ×3 (08:16→20:27)
[2016-11-30] MEDS: MULTIVITAMIN with MINERAL TABLET. PO SCH (08:16)
[2016-11-30] MEDS: ASPIRIN 81 MG TAB.CHEW PO SCH (08:16)
[2016-11-30] MEDS: SENNOSIDES/DOCUSATE 8.6/50MG TABLET. PO SCH ×2 (08:16→20:33)
[2016-11-30] MEDS: CHOLECALCIFEROL (VITAMIN D3) 1,000 UNIT TABLET PO SCH (08:16)
[2016-11-30] MEDS: ESCITALOPRAM 5 MG TABLET PO SCH (08:17)
[2016-11-30] MEDS: busPIRone 5 MG TABLET. PO SCH ×2 (08:17→14:15)
[2016-11-30] MEDS: AMOXICILLIN 250 MG CAPSULE PO SCH ×3 (08:17→20:27)
--- NOTE | 2016-11-30 09:11 | PN ---
DATE: 11/28/2016 SUBJECTIVE: This is a 66-year-old female who was [facility]. Her requested I take a look at her because she was complaining of having a toothache. Admits that she has not been to the dentist in several years because they could not afford to do so. Due to her advanced dementia, it is hard to get her to cooperate. OBJECTIVE: VITAL SIGNS: Blood pressure was 99/68, pulse 78, respirations 16, and pulse ox 96% on room air. GENERAL: She is alert. She is talking but is confused. HEENT: ____ mouth exam is possible. She has some sensitivity along the left mandibular. There are no submandibular nodes or lymphadenopathy in her neck. She has extensive gingivitis and a large hunter in posterior molar, second from the left molar and ____ exam could be done with her minimal cooperation. ASSESSMENT: Dentition with a large hunter and severe gingivitis, questionable abscess. PLAN: Amoxicillin 500 mg 3 times a day, Anbesol topical and I asked the to get her a tooth brush called Gum and we will reevaluate in a couple of days. Her white count is normal. ELLY HATFIELD DO DR: PRINCESS/ivan JOB#: [id number] / [id number]
--- NOTE | 2016-11-30 11:31 | NUR ---
Behavior Intervention Response and Plan: BIRP Note: Behavior: Assumed Care of patient, patient located in Hallway at shift change. Patient exhibited the following behavior Wandering, Restless, Disorganized. Brief assessment on rounds of vital signs, medication needs, lab studies, and pain. Treatment plan problems 1 and 2. Intervention: Patient assessed and the following interventions initiated safety checks 15 Minute Checks Head to toe Assessment , Medications , Oral Hydration. Response: After interactions and interventions patient responded in the following manner, Withdrawn , Anxious ,Wandering. Continue to assess behaviors and condition will continue to monitor throughout the shift as needed. Plan: Continue to monitor Master Treatment Plan for patient's progress toward short term goals of Decreased Anxiety, Decreased Agitation, intermediate goals to return to previous living setting vs placement. Continue to assess patient for changes in above assessment. Monitor for medication needs, pain, and safety concerns. Hourly rounding performed to ensure safe environment.
--- NOTE | 2016-11-30 13:15 | NUR ---
THERAPEUTIC RECREATION GROUP NOTE TITLE :Sing along/ Karaoke ACTIVITY : Music GOAL : Increase socialization, elevate mood, stimulate memory DURATION : 120 Minutes RESPONSE : No participation.
[2016-11-30] MEDS ORDERED: traZODone 100 MG TABLET. PO PRN (18:30)
[2016-11-30] MEDS: ATORVASTATIN CALCIUM 10 MG TABLET. PO SCH (20:27)
[2016-11-30] MEDS: MIRTAZAPINE 15 MG TABLET PO SCH (20:33)
[2016-11-30] MEDS: MELATONIN 3 MG TABLET PO PRN (20:34)
[2016-11-30] MEDS: traZODone 50 MG TABLET. PO SCH (20:34)
--- NOTE | 2016-11-30 20:54 | PDOC ---
Exam Ty Demential Exam: Ty Note: Please also refer to the separate dictated note~for this date of service dictated separately.~Patient seen individually. Discussed the patient with Nursing staff reviewed the chart.~Reviewed interim history and current functioning. Reviewed vital signs,~Labs/ Radiology~and current medications noted below. Continue current treatment with the changes noted in the dictated addendum note Assessment: Vital Signs: Vital Signs Date Time Temp Pulse Resp B/P (MAP) Pulse Ox O2 Delivery O2 Flow Rate FiO2 11/29/16 15:59 97.6 78 18 110/78 (89) 96 Room Air I&O Intake and Output 11/30/16 06:59 Intake Total 1080 ml Balance 1080 ml Intake Oral 1080 ml # Bowel Movements 2 Current Medications: Meds: Current Medications Lorazepam (Ativan) 2 mg 1X ONCE IM Last administered on 11/24/16 15:20; Start 11/24/16 at 15:30; Stop 11/24/16 at 15:31; Status DC Acetaminophen (Tylenol) 650 mg PRN Q6HRS PRN PO MILD PAIN / TEMP; Start at 23:30; Stop 11/28/16 at 18:00; Status DC Multi-Ingredient Ointment (Analgesic [place]) 1 nataly PRN QID PRN TP MUSCLE PAIN; Start 11/24/16 at 23:30 Al Hydroxide/Mg Hydroxide (Mylanta Plus Xs) 15 ml PRN AFTMEALHC PRN PO DYSPEPSIA; Start 11/24/16 at 23:30 Magnesium Hydroxide (Milk Of Magnesia) 2,400 mg PRN QHS PRN PO CONSTIPATION; Start 11/24/16 at 23:30 Nicotine (Nicoderm Cq 14mg) 1 patch DAILY TD Last administered on 11/30/16 08: 15; Start 11/25/16 at 09:00 Alprazolam (Xanax) 0.25 mg PRN Q8HRS PRN PO ANXIETY / AGITATION Last administered on 11/29/16 23:22; Start 11/25/16 at 00:45 Bupropion HCl (Wellbutrin Sr) 150 mg DAILY PO Last administered on 11/25/16 10 :53; Start 11/25/16 at 09:00; Stop 11/25/16 at 18:44; Status DC Divalproex Sodium (Depakote Sprinkles) 250 mg TID PO Last administered on 20:27; Start 11/25/16 at 09:00 Quetiapine Fumarate (SEROquel) 75 mg BID PO Last administered on 11/30/16 20: 27; Start 11/25/16 at 09:00 Trazodone HCl (Desyrel) 25 mg QHS PO Last administered on 11/25/16 20:44; Start 11/25/16 at 21:00; Stop 11/26/16 at 18:07; Status DC Melatonin 6 mg PRN QHS PRN PO INSOMNIA Last administered on 11/30/16 20:34; Start 11/25/16 at 01:00 Aspirin (Children'S Aspirin) 81 mg DAILY PO Last administered on 11/30/16 08: 16; Start 11/25/16 at 09:00 Atorvastatin Calcium (Lipitor) 10 mg QHS PO Last administered on 11/30/16 20: 27; Start 11/25/16 at 21:00 Ibuprofen (Motrin) 400 mg PRN Q4HRS PRN PO MODERATE PAIN; Start 11/25/16 at 00: 45 Multivitamins/ Calcium (Thera-M Plus) 1 tab DAILY PO Last administered on 08:16; Start 11/25/16 at 09:00 Senna/Docusate Sodium (Senna Plus) 2 tab BID PO Last administered on 11/30/16 20:33; Start 11/25/16 at 09:00 Tramadol HCl (Ultram) 50 mg PRN Q8HRS PRN PO MODERATE PAIN; Start 11/25/16 at 00:45 Vitamin D (Vitamin D3) 2,000 unit DAILY PO Last administered on 11/30/16 08:16 ; Start 11/25/16 at 09:00 Escitalopram Oxalate (Lexapro) 5 mg DAILY PO Last administered on 11/30/16 08: 17; Start 11/26/16 at 09:00 Mirtazapine (Remeron) 7.5 mg QHS PO Last administered on 11/29/16 21:11; Start 11/25/16 at 21:00; Stop 11/30/16 at 18:21; Status DC Trazodone HCl (Desyrel) 50 mg QHS PO Last administered on 11/29/16 21:11; Start 11/26/16 at 21:00; Stop 11/30/16 at 18:21; Status DC Acetaminophen (Tylenol) 650 mg [id number] PO Last administered on 11/30/16 17:02; Start 11/28/16 at 18:00 Benzocaine (Ora-Jel Maximum) 1 nataly PRN QID PRN TP ORAL PAIN; Start 11/28/16 at 17:15 Amoxicillin (Amoxil) 500 mg [id number] PO Last administered on 11/30/16 20:27; Start 11/28/16 at 21:00 Buspirone HCl (Buspar) 5 mg [id number] PO Last administered on 11/30/16 14:15; Start 11/29/16 at 09:00 Mirtazapine (Remeron) 15 mg QHS PO Last administered on 11/30/16 20:33; Start 11/30/16 at 21:00 Trazodone HCl (Desyrel) 100 mg QHS PO Last administered on 11/30/16 20:34; Start 11/30/16 at 21:00 Trazodone HCl (Desyrel) 100 mg PRN QHS PRN PO INSOMNIA; Start 11/30/16 at 18:30 Active Scripts Active Reported Bupropion Hcl Sr (Bupropion Hcl) 150 Mg Tablet.er 150 Mg PO DAILY Ibuprofen 400 Mg Tablet 400 Mg PO PRN Q4HRS PRN Tramadol Hcl (Tramadol HCl) 50 Mg Tablet 50 Mg PO PRN Q8HRS PRN Alprazolam 0.25 Mg Tablet 0.25 Mg PO PRN Q8HRS PRN Senna-Docusate Sodium Tablet (Sennosides/Docusate Sodium) 1 Each Tablet 2 Tab PO BID Depakote Sprinkle (Divalproex Sodium) 125 Mg Cap.sprink 250 Mg PO TID Trazodone Hcl 50 Mg Tablet 25 Mg PO QHS Melatonin 3 Mg Tablet 6 Mg PO QHS Atorvastatin Calcium 10 Mg Tablet 10 Mg PO QHS Vitamin D (Cholecalciferol (Vitamin D3)) 2,000 Unit Capsule 2,000 Unit PO DAILY Seroquel (Quetiapine Fumarate) 25 Mg Tablet 75 Mg PO BID Thera M Plus Tablet (Multivits,Ca,Minerals/Iron/FA) 1 Each Tablet 1 Tab PO DAILY Aspirin 81 Mg Tab.chew 81 Mg PO DAILY Diagnosis: Problems: (1) Anxiety disorder (2) Dementia with behavioral disturbance (3) Dementia in Alzheimer's disease with delusions (4) Dementia in Alzheimer's disease with depression (5) Dementia, vascular, with delusions (6) Dementia, vascular, with depression (7) Impulse control disorder HUNTER SCHROEDER MD Nov 30, 2016 20:54
--- NOTE | 2016-12-01 00:33 | NUR ---
Behavior Intervention Response and Plan: BIRP Note: Behavior: Assumed Care of patient, patient located in Hallway at shift change. Patient exhibited the following behavior Restless, Wandering, Disorganized. Brief assessment on rounds of vital signs, medication needs, lab studies, and pain. Treatment plan problems . Intervention: Patient assessed and the following interventions initiated safety checks 15 Minute Checks Cognitive Assessment , Medications , Oral Hydration. Response: After interactions and interventions patient responded in the following manner, Wandering , Restless ,Disorganized. Continue to assess behaviors and condition will continue to monitor throughout the shift as needed. 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 Continue to assess patient for changes in above assessment. Monitor for medication needs, pain, and safety concerns. Hourly rounding performed to ensure safe environment.
[2016-12-01 06:15] VITALS: BP 123/65
[2016-12-01] MEDS: ACETAMINOPHEN 325 MG TABLET PO SCH ×2 (06:43→17:54)
[2016-12-01] MEDS: ASPIRIN 81 MG TAB.CHEW PO SCH (08:02)
[2016-12-01] MEDS: busPIRone 5 MG TABLET. PO SCH ×2 (08:02→14:15)
[2016-12-01] MEDS: AMOXICILLIN 250 MG CAPSULE PO SCH ×3 (08:02→21:05)
[2016-12-01] MEDS: ESCITALOPRAM 5 MG TABLET PO SCH (08:03)
[2016-12-01] MEDS: SENNOSIDES/DOCUSATE 8.6/50MG TABLET. PO SCH ×2 (08:03→21:05)
[2016-12-01] MEDS: DIVALPROEX 125 MG CAP.SPRINK PO SCH ×3 (08:03→21:05)
[2016-12-01] MEDS: CHOLECALCIFEROL (VITAMIN D3) 1,000 UNIT TABLET PO SCH (08:04)
[2016-12-01] MEDS: MULTIVITAMIN with MINERAL TABLET. PO SCH (08:04)
[2016-12-01] MEDS: QUEtiapine 25 MG TABLET. PO SCH ×2 (08:04→21:06)
[2016-12-01] MEDS: NICOTINE 14MG PATCH. TD SCH (08:05)
--- NOTE | 2016-12-01 09:44 | PN ---
DATE: 11/30/2016 PSYCHIATRIC PROGRESS NOTE This is a late entry 11/30/2016, covers elements not covered my initial note. SUBJECTIVE: The patient slept 3-1/4 hours the previous evening, up, wandering, pulling on the doors, tearful, labile. REVIEW OF SYSTEMS: No eye, ENT, CV, , pulmonary system symptoms on review during the individual visit. MENTAL STATUS EXAM: Oriented to herself. Insight, judgment, recent and remote memory, attention, concentration, fund of knowledge poor, consistent with her diagnosis. She is repeatedly touching and grabbing at another patient on the unit, who was quite distressed with this. I her and had a walk with me towards the television lounge but she went right back to the other patient and the nursing staff intervened. LABORATORY DATA: Reviewed. IMPRESSION: Major neurocognitive disorder, Alzheimer, vascular with depression, delusion, behavioral disturbance; anxiety disorder, unspecified. Rest unchanged. PLAN: Increase trazodone to 100 mg at bedtime, may repeat x 1 for insomnia. Increase Remeron to 15 mg at bedtime. Continue Depakote 250 mg t.i.d., level therapeutic at 66; Lexapro 5 mg a day; Seroquel 75 mg b.i.d.; melatonin at current dosage; BuSpar 5 mg b.i.d. MAN Panchito SCHROEDER MD DR: TONIA/ivan JOB#: [id number] / [id number]
[2016-12-01] MEDS: ALPRAZolam 0.25 MG TABLET PO PRN (15:46)
[2016-12-01 16:42] VITALS: BP 143/82
[2016-12-01] MEDS: traZODone 50 MG TABLET. PO SCH (21:05)
[2016-12-01] MEDS: ATORVASTATIN CALCIUM 10 MG TABLET. PO SCH (21:05)
[2016-12-01] MEDS: MIRTAZAPINE 15 MG TABLET PO SCH (21:05)
--- NOTE | 2016-12-01 22:43 | PDOC ---
Exam Ty Demential Exam: Ty Note: Please also refer to the separate dictated note~for this date of service dictated separately.~Patient seen individually. Discussed the patient with Nursing staff reviewed the chart.~Reviewed interim history and current functioning. Reviewed vital signs,~Labs/ Radiology~and current medications noted below. Continue current treatment with the changes noted in the dictated addendum note Assessment: Vital Signs: Vital Signs Date Time Temp Pulse Resp B/P (MAP) Pulse Ox O2 Delivery O2 Flow Rate FiO2 12/01/16 16:42 98.2 59 20 143/82 (102) 97 11/29/16 15:59 Room Air I&O Intake and Output 12/01/16 07:00 Intake Total 240 ml Balance 240 ml Intake Oral 240 ml Current Medications: Meds: Current Medications Lorazepam (Ativan) 2 mg 1X ONCE IM Last administered on 11/24/16 15:20; Start 11/24/16 at 15:30; Stop 11/24/16 at 15:31; Status DC Acetaminophen (Tylenol) 650 mg PRN Q6HRS PRN PO MILD PAIN / TEMP; Start at 23:30; Stop 11/28/16 at 18:00; Status DC Multi-Ingredient Ointment (Analgesic [place]) 1 nataly PRN QID PRN TP MUSCLE PAIN; Start 11/24/16 at 23:30 Al Hydroxide/Mg Hydroxide (Mylanta Plus Xs) 15 ml PRN AFTMEALHC PRN PO DYSPEPSIA; Start 11/24/16 at 23:30 Magnesium Hydroxide (Milk Of Magnesia) 2,400 mg PRN QHS PRN PO CONSTIPATION; Start 11/24/16 at 23:30 Nicotine (Nicoderm Cq 14mg) 1 patch DAILY TD Last administered on 12/01/16 08: 05; Start 11/25/16 at 09:00 Alprazolam (Xanax) 0.25 mg PRN Q8HRS PRN PO ANXIETY / AGITATION Last administered on 12/01/16 15:46; Start 11/25/16 at 00:45 Bupropion HCl (Wellbutrin Sr) 150 mg DAILY PO Last administered on 11/25/16 10 :53; Start 11/25/16 at 09:00; Stop 11/25/16 at 18:44; Status DC Divalproex Sodium (Depakote Sprinkles) 250 mg TID PO Last administered on 21:05; Start 11/25/16 at 09:00 Quetiapine Fumarate (SEROquel) 75 mg BID PO Last administered on 12/01/16 21: 06; Start 11/25/16 at 09:00 Trazodone HCl (Desyrel) 25 mg QHS PO Last administered on 11/25/16 20:44; Start 11/25/16 at 21:00; Stop 11/26/16 at 18:07; Status DC Melatonin 6 mg PRN QHS PRN PO INSOMNIA Last administered on 11/30/16 20:34; Start 11/25/16 at 01:00 Aspirin (Children'S Aspirin) 81 mg DAILY PO Last administered on 12/01/16 08: 02; Start 11/25/16 at 09:00 Atorvastatin Calcium (Lipitor) 10 mg QHS PO Last administered on 12/01/16 21: 05; Start 11/25/16 at 21:00 Ibuprofen (Motrin) 400 mg PRN Q4HRS PRN PO MODERATE PAIN; Start 11/25/16 at 00: 45 Multivitamins/ Calcium (Thera-M Plus) 1 tab DAILY PO Last administered on 08:04; Start 11/25/16 at 09:00 Senna/Docusate Sodium (Senna Plus) 2 tab BID PO Last administered on 12/01/16 21:05; Start 11/25/16 at 09:00 Tramadol HCl (Ultram) 50 mg PRN Q8HRS PRN PO MODERATE PAIN; Start 11/25/16 at 00:45 Vitamin D (Vitamin D3) 2,000 unit DAILY PO Last administered on 12/01/16 08:04 ; Start 11/25/16 at 09:00 Escitalopram Oxalate (Lexapro) 5 mg DAILY PO Last administered on 12/01/16 08: 03; Start 11/26/16 at 09:00 Mirtazapine (Remeron) 7.5 mg QHS PO Last administered on 11/29/16 21:11; Start 11/25/16 at 21:00; Stop 11/30/16 at 18:21; Status DC Trazodone HCl (Desyrel) 50 mg QHS PO Last administered on 11/29/16 21:11; Start 11/26/16 at 21:00; Stop 11/30/16 at 18:21; Status DC Acetaminophen (Tylenol) 650 mg [id number] PO Last administered on 12/01/16 17:54; Start 11/28/16 at 18:00 Benzocaine (Ora-Jel Maximum) 1 nataly PRN QID PRN TP ORAL PAIN; Start 11/28/16 at 17:15 Amoxicillin (Amoxil) 500 mg [id number] PO Last administered on 12/01/16 21:05; Start 11/28/16 at 21:00 Buspirone HCl (Buspar) 5 mg [id number] PO Last administered on 12/01/16 14:15; Start 11/29/16 at 09:00 Mirtazapine (Remeron) 15 mg QHS PO Last administered on 12/01/16 21:05; Start 11/30/16 at 21:00 Trazodone HCl (Desyrel) 100 mg QHS PO Last administered on 12/01/16 21:05; Start 11/30/16 at 21:00 Trazodone HCl (Desyrel) 100 mg PRN QHS PRN PO INSOMNIA; Start 11/30/16 at 18:30 Active Scripts Active Reported Bupropion Hcl Sr (Bupropion Hcl) 150 Mg Tablet.er 150 Mg PO DAILY Ibuprofen 400 Mg Tablet 400 Mg PO PRN Q4HRS PRN Tramadol Hcl (Tramadol HCl) 50 Mg Tablet 50 Mg PO PRN Q8HRS PRN Alprazolam 0.25 Mg Tablet 0.25 Mg PO PRN Q8HRS PRN Senna-Docusate Sodium Tablet (Sennosides/Docusate Sodium) 1 Each Tablet 2 Tab PO BID Depakote Sprinkle (Divalproex Sodium) 125 Mg Cap.sprink 250 Mg PO TID Trazodone Hcl 50 Mg Tablet 25 Mg PO QHS Melatonin 3 Mg Tablet 6 Mg PO QHS Atorvastatin Calcium 10 Mg Tablet 10 Mg PO QHS Vitamin D (Cholecalciferol (Vitamin D3)) 2,000 Unit Capsule 2,000 Unit PO DAILY Seroquel (Quetiapine Fumarate) 25 Mg Tablet 75 Mg PO BID Thera M Plus Tablet (Multivits,Ca,Minerals/Iron/FA) 1 Each Tablet 1 Tab PO DAILY Aspirin 81 Mg Tab.chew 81 Mg PO DAILY Diagnosis: Problems: (1) Anxiety disorder (2) Dementia with behavioral disturbance (3) Dementia in Alzheimer's disease with delusions (4) Dementia in Alzheimer's disease with depression (5) Dementia, vascular, with delusions (6) Dementia, vascular, with depression (7) Impulse control disorder HUNTER SCHROEDER MD Dec 01, 2016 22:43
--- NOTE | 2016-12-01 23:34 | NUR ---
Behavior Intervention Response and Plan: BIRP Note: Behavior: Assumed Care of patient, patient located in Day Room at shift change. Patient exhibited the following behavior Wandering, Disorganized, Drowsy. Brief assessment on rounds of vital signs, medication needs, lab studies, and pain. Treatment plan problems Dementia W/BD and fall risk. Intervention: Patient assessed and the following interventions initiated safety checks 15 Minute Checks Cognitive Assessment , Medications , Nutrition. Response: After interactions and interventions patient responded in the following manner, Calm , Compliant ,Cooperative. Continue to assess behaviors and condition will continue to monitor throughout the shift as needed. Plan: Continue to monitor Master Treatment Plan for patient's progress toward short term goals of Decreased Agitation, Decreased Aggression, half-way goals to return to previous living setting vs placement. Continue to assess patient for changes in above assessment. Monitor for medication needs, pain, and safety concerns. Hourly rounding performed to ensure safe environment.
[2016-12-02] MEDS: ACETAMINOPHEN 325 MG TABLET PO SCH ×2 (06:00→08:33)
[2016-12-02 06:44] VITALS: BP 110/55
--- NOTE | 2016-12-02 07:37 | NUR ---
Behavior Intervention Response and Plan: BIRP Note: Behavior: Assumed Care of patient, patient located in Patient Room at shift change. Patient exhibited the following behavior Calm, Sleeping, . Brief assessment on rounds of vital signs, medication needs, lab studies, and pain. Treatment plan problems . Intervention: Patient assessed and the following interventions initiated safety checks 15 Minute Checks Cognitive Assessment , Head to toe Assessment , Personal Alarm in place. Response: After interactions and interventions patient responded in the following manner, Calm , Sleeping ,. Continue to assess behaviors and condition will continue to monitor throughout the shift as needed. Plan: Continue to monitor Master Treatment Plan for patient's progress toward short term goals of Medication Compliance, No harm To self/ others, senior care goals to return to previous living setting vs placement. Continue to assess patient for changes in above assessment. Monitor for medication needs, pain, and safety concerns. Hourly rounding performed to ensure safe environment.
[2016-12-02] MEDS: AMOXICILLIN 250 MG CAPSULE PO SCH ×3 (08:32→20:09)
[2016-12-02] MEDS: NICOTINE 14MG PATCH. TD SCH (08:32)
[2016-12-02] MEDS: ASPIRIN 81 MG TAB.CHEW PO SCH (08:33)
[2016-12-02] MEDS: DIVALPROEX 125 MG CAP.SPRINK PO SCH ×3 (08:33→20:09)
[2016-12-02] MEDS: ESCITALOPRAM 5 MG TABLET PO SCH (08:33)
[2016-12-02] MEDS: SENNOSIDES/DOCUSATE 8.6/50MG TABLET. PO SCH ×2 (08:33→20:11)
[2016-12-02] MEDS: QUEtiapine 25 MG TABLET. PO SCH ×2 (08:34→20:11)
[2016-12-02] MEDS: MULTIVITAMIN with MINERAL TABLET. PO SCH (08:34)
[2016-12-02] MEDS: busPIRone 5 MG TABLET. PO SCH ×2 (08:34→13:15)
[2016-12-02] MEDS: CHOLECALCIFEROL (VITAMIN D3) 1,000 UNIT TABLET PO SCH (08:34)
[2016-12-02 08:40] LABS: ALBUMIN 2.9 g/dL (3.4-5.0); ALBUMIN/GLOBULIN RATIO 0.9 (1.0-1.7); ALK PHOS 57 U/L (46-116); ALT (SGPT) 13 U/L (14-59); ANION GAP 7 (6-14); AST (SGOT) 12 U/L (15-37); BLOOD UREA NITROGEN 21 mg/dL (7-20); BUN/CREATININE RATIO 23 (6-20); CALCIUM 8.5 mg/dL (8.5-10.1); CARBON DIOXIDE 30 mmol/L (21-32); CHLORIDE 108 mmol/L (98-107); CREATININE 0.9 mg/dL (0.6-1.0); GLUCOSE 79 mg/dL (70-99); MAGNESIUM 2.1 mg/dL (1.8-2.4); POTASSIUM 4.4 mmol/L (3.5-5.1); SODIUM 145 mmol/L (136-145); TOTAL BILIRUBIN 0.3 mg/dL (0.2-1.0); TOTAL PROTEIN 6.3 g/dL (6.4-8.2)
[2016-12-02 08:54] LABS: VAL ACID 65 mcg/mL (50-100)
[2016-12-02] MEDS: ALPRAZolam 0.25 MG TABLET PO PRN (13:15)
[2016-12-02] MEDS: ATORVASTATIN CALCIUM 10 MG TABLET. PO SCH (20:09)
[2016-12-02] MEDS: traZODone 50 MG TABLET. PO SCH (20:10)
[2016-12-02] MEDS: MIRTAZAPINE 15 MG TABLET PO SCH (20:11)
--- NOTE | 2016-12-02 21:20 | PDOC ---
Exam Ty Demential Exam: Ty Note: Please also refer to the separate dictated note~for this date of service dictated separately.~Patient seen individually. Discussed the patient with Nursing staff reviewed the chart.~Reviewed interim history and current functioning. Reviewed vital signs,~Labs/ Radiology~and current medications noted below. Continue current treatment with the changes noted in the dictated addendum note Assessment: Vital Signs: Vital Signs Date Time Temp Pulse Resp B/P (MAP) Pulse Ox O2 Delivery O2 Flow Rate FiO2 12/02/16 16:34 98.0 88 18 94 Room Air 12/02/16 06:44 110/55 (73) I&O Intake and Output 12/02/16 07:00 Intake Total 960 ml Balance 960 ml Intake Oral 960 ml Labs: Laboratory Tests Test 12/02/16 06:38 Sodium Level 145 mmol/L (136-145) Potassium Level 4.4 mmol/L (3.5-5.1) Chloride Level 108 mmol/L (98-107) H Carbon Dioxide Level 30 mmol/L (21-32) Anion Gap 7 (6-14) Blood Urea Nitrogen 21 mg/dL (7-20) H Creatinine 0.9 mg/dL (0.6-1.0) Estimated GFR (Cockcroft-Gault) 63.0 BUN/Creatinine Ratio 23 (6-20) H Glucose Level 79 mg/dL (70-99) Calcium Level 8.5 mg/dL (8.5-10.1) Magnesium Level 2.1 mg/dL (1.8-2.4) Total Bilirubin 0.3 mg/dL (0.2-1.0) Aspartate Amino Transferase (AST) 12 U/L (15-37) L Alanine Aminotransferase (ALT) 13 U/L (14-59) L Alkaline Phosphatase 57 U/L (46-116) Total Protein 6.3 g/dL (6.4-8.2) L Albumin 2.9 g/dL (3.4-5.0) L Albumin/Globulin Ratio 0.9 (1.0-1.7) L Valproic Acid Level 65 mcg/mL (50-100) Valproic Acid Last Dose Date 12/01/16 Valproic Acid Last Dose Time 2100 Current Medications: Meds: Current Medications Lorazepam (Ativan) 2 mg 1X ONCE IM Last administered on 11/24/16 15:20; Start 11/24/16 at 15:30; Stop 11/24/16 at 15:31; Status DC Acetaminophen (Tylenol) 650 mg PRN Q6HRS PRN PO MILD PAIN / TEMP; Start at 23:30; Stop 11/28/16 at 18:00; Status DC Multi-Ingredient Ointment (Analgesic [place]) 1 nataly PRN QID PRN TP MUSCLE PAIN; Start 11/24/16 at 23:30 Al Hydroxide/Mg Hydroxide (Mylanta Plus Xs) 15 ml PRN AFTMEALHC PRN PO DYSPEPSIA; Start 11/24/16 at 23:30 Magnesium Hydroxide (Milk Of Magnesia) 2,400 mg PRN QHS PRN PO CONSTIPATION; Start 11/24/16 at 23:30 Nicotine (Nicoderm Cq 14mg) 1 patch DAILY TD Last administered on 12/02/16 08: 32; Start 11/25/16 at 09:00 Alprazolam (Xanax) 0.25 mg PRN Q8HRS PRN PO ANXIETY / AGITATION Last administered on 12/02/16 13:15; Start 11/25/16 at 00:45 Bupropion HCl (Wellbutrin Sr) 150 mg DAILY PO Last administered on 11/25/16 10 :53; Start 11/25/16 at 09:00; Stop 11/25/16 at 18:44; Status DC Divalproex Sodium (Depakote Sprinkles) 250 mg TID PO Last administered on 20:09; Start 11/25/16 at 09:00 Quetiapine Fumarate (SEROquel) 75 mg BID PO Last administered on 12/02/16 20: 11; Start 11/25/16 at 09:00 Trazodone HCl (Desyrel) 25 mg QHS PO Last administered on 11/25/16 20:44; Start 11/25/16 at 21:00; Stop 11/26/16 at 18:07; Status DC Melatonin 6 mg PRN QHS PRN PO INSOMNIA Last administered on 11/30/16 20:34; Start 11/25/16 at 01:00 Aspirin (Children'S Aspirin) 81 mg DAILY PO Last administered on 12/02/16 08: 33; Start 11/25/16 at 09:00 Atorvastatin Calcium (Lipitor) 10 mg QHS PO Last administered on 12/02/16 20: 09; Start 11/25/16 at 21:00 Ibuprofen (Motrin) 400 mg PRN Q4HRS PRN PO MODERATE PAIN; Start 11/25/16 at 00: 45 Multivitamins/ Calcium (Thera-M Plus) 1 tab DAILY PO Last administered on 08:34; Start 11/25/16 at 09:00 Senna/Docusate Sodium (Senna Plus) 2 tab BID PO Last administered on 12/02/16 20:11; Start 11/25/16 at 09:00 Tramadol HCl (Ultram) 50 mg PRN Q8HRS PRN PO MODERATE PAIN; Start 11/25/16 at 00:45 Vitamin D (Vitamin D3) 2,000 unit DAILY PO Last administered on 12/02/16 08:34 ; Start 11/25/16 at 09:00 Escitalopram Oxalate (Lexapro) 5 mg DAILY PO Last administered on 12/02/16 08: 33; Start 11/26/16 at 09:00 Mirtazapine (Remeron) 7.5 mg QHS PO Last administered on 11/29/16 21:11; Start 11/25/16 at 21:00; Stop 11/30/16 at 18:21; Status DC Trazodone HCl (Desyrel) 50 mg QHS PO Last administered on 11/29/16 21:11; Start 11/26/16 at 21:00; Stop 11/30/16 at 18:21; Status DC Acetaminophen (Tylenol) 650 mg [id number] PO Last administered on 12/02/16 08:33; Start 11/28/16 at 18:00 Benzocaine (Ora-Jel Maximum) 1 nataly PRN QID PRN TP ORAL PAIN; Start 11/28/16 at 17:15 Amoxicillin (Amoxil) 500 mg [id number] PO Last administered on 12/02/16 20:09; Start 11/28/16 at 21:00 Buspirone HCl (Buspar) 5 mg [id number] PO Last administered on 12/02/16 13:15; Start 11/29/16 at 09:00 Mirtazapine (Remeron) 15 mg QHS PO Last administered on 12/02/16 20:11; Start 11/30/16 at 21:00 Trazodone HCl (Desyrel) 100 mg QHS PO Last administered on 12/02/16 20:10; Start 11/30/16 at 21:00 Trazodone HCl (Desyrel) 100 mg PRN QHS PRN PO INSOMNIA; Start 11/30/16 at 18:30 Active Scripts Active Reported Bupropion Hcl Sr (Bupropion Hcl) 150 Mg Tablet.er 150 Mg PO DAILY Ibuprofen 400 Mg Tablet 400 Mg PO PRN Q4HRS PRN Tramadol Hcl (Tramadol HCl) 50 Mg Tablet 50 Mg PO PRN Q8HRS PRN Alprazolam 0.25 Mg Tablet 0.25 Mg PO PRN Q8HRS PRN Senna-Docusate Sodium Tablet (Sennosides/Docusate Sodium) 1 Each Tablet 2 Tab PO BID Depakote Sprinkle (Divalproex Sodium) 125 Mg Cap.sprink 250 Mg PO TID Trazodone Hcl 50 Mg Tablet 25 Mg PO QHS Melatonin 3 Mg Tablet 6 Mg PO QHS Atorvastatin Calcium 10 Mg Tablet 10 Mg PO QHS Vitamin D (Cholecalciferol (Vitamin D3)) 2,000 Unit Capsule 2,000 Unit PO DAILY Seroquel (Quetiapine Fumarate) 25 Mg Tablet 75 Mg PO BID Thera M Plus Tablet (Multivits,Ca,Minerals/Iron/FA) 1 Each Tablet 1 Tab PO DAILY Aspirin 81 Mg Tab.chew 81 Mg PO DAILY Diagnosis: Problems: (1) Anxiety disorder (2) Dementia with behavioral disturbance (3) Dementia in Alzheimer's disease with delusions (4) Dementia in Alzheimer's disease with depression (5) Dementia, vascular, with delusions (6) Dementia, vascular, with depression (7) Impulse control disorder HUNTER SCHROEDER MD Dec 02, 2016 21:20
--- NOTE | 2016-12-02 23:00 | NUR ---
Behavior Intervention Response and Plan: BIRP Note: Behavior: Assumed Care of patient, patient located in Hallway at shift change. Patient exhibited the following behavior Disorganized, Compliant, Wandering. Brief assessment on rounds of vital signs, medication needs, lab studies, and pain. Treatment plan problems . Intervention: Patient assessed and the following interventions initiated safety checks 15 Minute Checks Call wallace in reach , Medications , Nutrition. Response: After interactions and interventions patient responded in the following manner, Wandering , Disorganized ,Compliant. Continue to assess behaviors and condition will continue to monitor throughout the shift as needed. Plan: Continue to monitor Master Treatment Plan for patient's progress toward short term goals of Decreased Agitation, Decreased Anxiety, custodial goals to return to previous living setting vs placement. Continue to assess patient for changes in above assessment. Monitor for medication needs, pain, and safety concerns. Hourly rounding performed to ensure safe environment.
--- NOTE | 2016-12-03 00:57 | PN ---
DATE: 12/01/2016 This late entry for 12/01/2016 covers elements not covered in my initial note. SUBJECTIVE: The patient has been tearful at times, difficult to redirect, anxious, restless, constantly up and down the hallway, oblivious of where she is. REVIEW OF SYSTEMS: No eye, ENT, CV, , pulmonary system symptoms on review. I met with her at some length in her room. She is unable to sit still. Reliability poor. MENTAL STATUS EXAM: Oriented to herself. Insight, judgment, recent and remote memory, attention, concentration, fund of knowledge poor, consistent with her diagnosis. IMPRESSION: Major neurocognitive disorder, Alzheimer, vascular with depression, delusion and behavioral disturbance. Rest unchanged. PLAN: Valproic acid level is therapeutic at 66. Continue Depakote Sprinkles 250 mg t.i.d., Lexapro 5 mg a day, Seroquel 75 mg b.i.d., trazodone 100 mg at bedtime, Remeron 15 mg at bedtime, melatonin p.r.n., Xanax p.r.n., BuSpar 5 mg b.i.d., 15 mg at bedtime. We may need to increase BuSpar and schedule trazodone during the day depending on how her anxiety does with the adjusted Depakote. HUNTER SCHROEDER MD DR: TONIA/ivan JOB#: [id number] / [id number]
--- NOTE | 2016-12-03 01:50 | PN ---
DATE: 12/02/2016 PSYCHIATRIC PROGRESS NOTE This note covers elements not covered in my initial note. SUBJECTIVE: The patient was seen individually evening of 12/02/2016. Per nursing report, she has been wandering, refused CBC this morning, did later have comprehensive metabolic profile completed, compliant with the medications, wandering the hallways. She followed me around the unit during my rounds. REVIEW OF SYSTEMS: No CV, , pulmonary, eye, ENT system symptoms on review. Reliability poor. MENTAL STATUS EXAM: Oriented to herself. Insight, judgment, recent and remote memory, attention, concentration, fund of knowledge poor, consistent with her diagnosis mentioned in my initial note. IMPRESSION: Major neurocognitive disorder, Alzheimer, vascular with depression, delusion, behavioral disturbance. Rest unchanged. PLAN: Continue Depakote, Lexapro, Seroquel, trazodone, Remeron, melatonin, Xanax, BuSpar is noted in my initial note. Valproic acid level is therapeutic at 66. Make further adjustments in the psychotropics as clinically indicated. MAN Panchito SCHROEDER MD DR: TONIA/ivan JOB#: [id number] / [id number]
[2016-12-03] MEDS: ACETAMINOPHEN 325 MG TABLET PO SCH ×3 (05:36→17:24)
[2016-12-03 06:23] VITALS: BP 119/73
[2016-12-03] MEDS: ESCITALOPRAM 5 MG TABLET PO SCH (08:09)
[2016-12-03] MEDS: busPIRone 5 MG TABLET. PO SCH ×2 (08:09→13:29)
[2016-12-03] MEDS: AMOXICILLIN 250 MG CAPSULE PO SCH ×3 (08:09→19:46)
[2016-12-03] MEDS: CHOLECALCIFEROL (VITAMIN D3) 1,000 UNIT TABLET PO SCH (08:10)
[2016-12-03] MEDS: MULTIVITAMIN with MINERAL TABLET. PO SCH (08:10)
[2016-12-03] MEDS: ASPIRIN 81 MG TAB.CHEW PO SCH (08:26)
[2016-12-03] MEDS: QUEtiapine 25 MG TABLET. PO SCH ×2 (08:26→19:47)
[2016-12-03] MEDS: SENNOSIDES/DOCUSATE 8.6/50MG TABLET. PO SCH ×2 (08:26→19:47)
[2016-12-03] MEDS: DIVALPROEX 125 MG CAP.SPRINK PO SCH ×3 (08:27→19:46)
[2016-12-03] MEDS: NICOTINE 14MG PATCH. TD SCH (08:28)
--- NOTE | 2016-12-03 09:15 | NUR ---
THERAPEUTIC RECREATION GROUP NOTE TITLE :Beach Ball Bop ACTIVITY : Movement/ Exercise GOAL : Increase morale, attention, endurance, socialization. Decrease stress/anxiety. DURATION : 35 Minutes RESPONSE : Full participation. Pt. started the activity by standing and wandering around the room. She needed guidance and assistance to sit and join the group. She was compliant. She had no interaction with others but was calm the entire time. She had difficulty tracking and hitting the ball. At times, it was difficult refocusing. She randomly alternated between catching/throwing and bumping the ball back to LEADER WRITER.
--- NOTE | 2016-12-03 10:59 | NUR ---
[facility] sent updated information on pt to [facility], as pt current facility call this gag writer and stated they are concerned about taking pt back to facility.
--- NOTE | 2016-12-03 11:15 | NUR ---
THERAPEUTIC RECREATION GROUP NOTE TITLE :Movement to Music: Strength ACTIVITY : Movement/ Exercise GOAL : Increase morale, attention, flexibility. Decrease stress/anxiety. DURATION : 45 Minutes RESPONSE : No participation.
--- NOTE | 2016-12-03 11:44 | NUR ---
Behavior Intervention Response and Plan: BIRP Note: Behavior: Assumed Care of patient, patient located in Hallway at shift change. Patient exhibited the following behavior Wandering, Restless, Disorganized. Brief assessment on rounds of vital signs, medication needs, lab studies, and pain. Treatment plan problems 1 and 2. Intervention: Patient assessed and the following interventions initiated safety checks 15 Minute Checks Cognitive Assessment , Head to toe Assessment , Medications. Response: After interactions and interventions patient responded in the following manner, Compliant , Withdrawn ,Wandering. Continue to assess behaviors and condition will continue to monitor throughout the shift as needed. 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 Continue to assess patient for changes in above assessment. Monitor for medication needs, pain, and safety concerns. Hourly rounding performed to ensure safe environment.
--- NOTE | 2016-12-03 14:15 | NUR ---
THERAPEUTIC RECREATION GROUP NOTE TITLE :ABC's of Leisure ACTIVITY : Leisure Awareness GOAL : Increase knowledge of leisure activities DURATION : 60 Minutes RESPONSE : No participation.
[2016-12-03 16:51] VITALS: BP 107/70
[2016-12-03] MEDS: ALPRAZolam 0.25 MG TABLET PO PRN (17:38)
[2016-12-03] MEDS: ATORVASTATIN CALCIUM 10 MG TABLET. PO SCH (19:46)
[2016-12-03] MEDS: traZODone 50 MG TABLET. PO SCH (19:46)
[2016-12-03] MEDS: MIRTAZAPINE 15 MG TABLET PO SCH (19:47)
--- NOTE | 2016-12-03 22:46 | PDOC ---
Exam Ty Demential Exam: Ty Note: Please also refer to the separate dictated note~for this date of service dictated separately.~Patient seen individually. Discussed the patient with Nursing staff reviewed the chart.~Reviewed interim history and current functioning. Reviewed vital signs,~Labs/ Radiology~and current medications noted below. Continue current treatment with the changes noted in the dictated addendum note Assessment: Vital Signs: Vital Signs Date Time Temp Pulse Resp B/P (MAP) Pulse Ox O2 Delivery O2 Flow Rate FiO2 12/03/16 16:51 97.4 75 20 107/70 (82) 12/03/16 06:23 99 12/02/16 16:34 Room Air I&O Intake and Output 12/03/16 07:00 Intake Total 400 ml Balance 400 ml Intake Oral 400 ml # Bowel Movements 1 Current Medications: Meds: Current Medications Lorazepam (Ativan) 2 mg 1X ONCE IM Last administered on 11/24/16 15:20; Start 11/24/16 at 15:30; Stop 11/24/16 at 15:31; Status DC Acetaminophen (Tylenol) 650 mg PRN Q6HRS PRN PO MILD PAIN / TEMP; Start at 23:30; Stop 11/28/16 at 18:00; Status DC Multi-Ingredient Ointment (Analgesic [place]) 1 nataly PRN QID PRN TP MUSCLE PAIN; Start 11/24/16 at 23:30 Al Hydroxide/Mg Hydroxide (Mylanta Plus Xs) 15 ml PRN AFTMEALHC PRN PO DYSPEPSIA; Start 11/24/16 at 23:30 Magnesium Hydroxide (Milk Of Magnesia) 2,400 mg PRN QHS PRN PO CONSTIPATION; Start 11/24/16 at 23:30 Nicotine (Nicoderm Cq 14mg) 1 patch DAILY TD Last administered on 12/03/16 08: 28; Start 11/25/16 at 09:00; Stop 12/03/16 at 15:46; Status DC Alprazolam (Xanax) 0.25 mg PRN Q8HRS PRN PO ANXIETY / AGITATION Last administered on 12/03/16 17:38; Start 11/25/16 at 00:45 Bupropion HCl (Wellbutrin Sr) 150 mg DAILY PO Last administered on 11/25/16 10 :53; Start 11/25/16 at 09:00; Stop 11/25/16 at 18:44; Status DC Divalproex Sodium (Depakote Sprinkles) 250 mg TID PO Last administered on 19:46; Start 11/25/16 at 09:00 Quetiapine Fumarate (SEROquel) 75 mg BID PO Last administered on 12/03/16 19: 47; Start 11/25/16 at 09:00 Trazodone HCl (Desyrel) 25 mg QHS PO Last administered on 11/25/16 20:44; Start 11/25/16 at 21:00; Stop 11/26/16 at 18:07; Status DC Melatonin 6 mg PRN QHS PRN PO INSOMNIA Last administered on 11/30/16 20:34; Start 11/25/16 at 01:00 Aspirin (Children'S Aspirin) 81 mg DAILY PO Last administered on 12/03/16 08: 26; Start 11/25/16 at 09:00 Atorvastatin Calcium (Lipitor) 10 mg QHS PO Last administered on 12/03/16 19: 46; Start 11/25/16 at 21:00 Ibuprofen (Motrin) 400 mg PRN Q4HRS PRN PO MODERATE PAIN; Start 11/25/16 at 00: 45 Multivitamins/ Calcium (Thera-M Plus) 1 tab DAILY PO Last administered on 08:10; Start 11/25/16 at 09:00 Senna/Docusate Sodium (Senna Plus) 2 tab BID PO Last administered on 12/03/16 19:47; Start 11/25/16 at 09:00 Tramadol HCl (Ultram) 50 mg PRN Q8HRS PRN PO MODERATE PAIN; Start 11/25/16 at 00:45 Vitamin D (Vitamin D3) 2,000 unit DAILY PO Last administered on 12/03/16 08:10 ; Start 11/25/16 at 09:00 Escitalopram Oxalate (Lexapro) 5 mg DAILY PO Last administered on 12/03/16 08: 09; Start 11/26/16 at 09:00; Stop 12/03/16 at 17:56; Status DC Mirtazapine (Remeron) 7.5 mg QHS PO Last administered on 11/29/16 21:11; Start 11/25/16 at 21:00; Stop 11/30/16 at 18:21; Status DC Trazodone HCl (Desyrel) 50 mg QHS PO Last administered on 11/29/16 21:11; Start 11/26/16 at 21:00; Stop 11/30/16 at 18:21; Status DC Acetaminophen (Tylenol) 650 mg [id number] PO Last administered on 12/03/16 17:24; Start 11/28/16 at 18:00 Benzocaine (Ora-Jel Maximum) 1 nataly PRN QID PRN TP ORAL PAIN; Start 11/28/16 at 17:15 Amoxicillin (Amoxil) 500 mg [id number] PO Last administered on 12/03/16 19:46; Start 11/28/16 at 21:00 Buspirone HCl (Buspar) 5 mg BID92 PO Last administered on 12/03/16 13:29; Start 11/29/16 at 09:00 Mirtazapine (Remeron) 15 mg QHS PO Last administered on 12/03/16 19:47; Start 11/30/16 at 21:00 Trazodone HCl (Desyrel) 100 mg QHS PO Last administered on 12/03/16 19:46; Start 11/30/16 at 21:00 Trazodone HCl (Desyrel) 100 mg PRN QHS PRN PO INSOMNIA; Start 11/30/16 at 18:30 Escitalopram Oxalate (Lexapro) 10 mg DAILY PO ; Start 12/04/16 at 09:00 Active Scripts Active Reported Bupropion Hcl Sr (Bupropion Hcl) 150 Mg Tablet.er 150 Mg PO DAILY Ibuprofen 400 Mg Tablet 400 Mg PO PRN Q4HRS PRN Tramadol Hcl (Tramadol HCl) 50 Mg Tablet 50 Mg PO PRN Q8HRS PRN Alprazolam 0.25 Mg Tablet 0.25 Mg PO PRN Q8HRS PRN Senna-Docusate Sodium Tablet (Sennosides/Docusate Sodium) 1 Each Tablet 2 Tab PO BID Depakote Sprinkle (Divalproex Sodium) 125 Mg Cap.sprink 250 Mg PO TID Trazodone Hcl 50 Mg Tablet 25 Mg PO QHS Melatonin 3 Mg Tablet 6 Mg PO QHS Atorvastatin Calcium 10 Mg Tablet 10 Mg PO QHS Vitamin D (Cholecalciferol (Vitamin D3)) 2,000 Unit Capsule 2,000 Unit PO DAILY Seroquel (Quetiapine Fumarate) 25 Mg Tablet 75 Mg PO BID Thera M Plus Tablet (Multivits,Ca,Minerals/Iron/FA) 1 Each Tablet 1 Tab PO DAILY Aspirin 81 Mg Tab.chew 81 Mg PO DAILY Diagnosis: Problems: (1) Impulse control disorder (2) Dementia, vascular, with depression (3) Dementia, vascular, with delusions (4) Dementia in Alzheimer's disease with depression (5) Anxiety disorder (6) Dementia with behavioral disturbance (7) Dementia in Alzheimer's disease with delusions HUNTER SCHROEDER MD Dec 03, 2016 22:46
--- NOTE | 2016-12-03 23:20 | NUR ---
Behavior Intervention Response and Plan: BIRP Note: Behavior: Assumed Care of patient, patient located in Day Room at shift change. Patient exhibited the following behavior Restless, Disorganized, Compulsive. Brief assessment on rounds of vital signs, medication needs, lab studies, and pain. Treatment plan problems . Intervention: Patient assessed and the following interventions initiated safety checks 15 Minute Checks Cognitive Assessment , Head to toe Assessment , Medications. Response: After interactions and interventions patient responded in the following manner, Compliant , Withdrawn ,Delusions. Continue to assess behaviors and condition will continue to monitor throughout the shift as needed. 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 Continue to assess patient for changes in above assessment. Monitor for medication needs, pain, and safety concerns. Hourly rounding performed to ensure safe environment.
--- NOTE | 2016-12-04 00:40 | PN ---
DATE: 12/03/2016 This note covers elements not covered in my initial note of 12/03/2016. SUBJECTIVE: The patient was seen individually in the evening of 12/03/2016. Per nursing report, the patient slept 6-1/4 hours, was somewhat anxious during the day, received Xanax at 04:40 p.m., tearful at times, wandering, repeatedly stating help me "I am about to ." As I was dictating the note, she was standing in front of me behind the glass stores of the nursing station, oblivious of her surroundings. REVIEW OF SYSTEMS: No CV, , eye, ENT, pulmonary system symptoms on review. Reliability poor. MENTAL STATUS EXAM: Oriented to herself. Insight, judgment, recent and remote memory, attention, concentration, fund of knowledge poor, consistent with her diagnosis mentioned in my initial note. IMPRESSION: Major neurocognitive disorder, Alzheimer, vascular with depression, delusion and behavioral disturbance. Rest unchanged. PLAN: Continue Depakote 250 t.i.d., level therapeutic at 65, increase Lexapro from 5 mg a day to 10 mg a day. Continue Seroquel 75 mg b.i.d., trazodone, Remeron, melatonin, Xanax, BuSpar as noted in my initial note. HUNTER SCHROEDER MD DR: TONIA/ivan JOB#: [id number] / [id number]
[2016-12-04 05:55] VITALS: BP 108/60
[2016-12-04] MEDS: ACETAMINOPHEN 325 MG TABLET PO SCH ×3 (05:58→18:00)
[2016-12-04] MEDS: AMOXICILLIN 250 MG CAPSULE PO SCH ×3 (08:00→19:31)
[2016-12-04] MEDS: DIVALPROEX 125 MG CAP.SPRINK PO SCH ×3 (08:01→19:31)
[2016-12-04] MEDS: busPIRone 5 MG TABLET. PO SCH ×2 (08:01→13:31)
[2016-12-04] MEDS: ASPIRIN 81 MG TAB.CHEW PO SCH (08:01)
[2016-12-04] MEDS: MULTIVITAMIN with MINERAL TABLET. PO SCH (08:01)
[2016-12-04] MEDS: CHOLECALCIFEROL (VITAMIN D3) 1,000 UNIT TABLET PO SCH (08:02)
[2016-12-04] MEDS: QUEtiapine 25 MG TABLET. PO SCH (08:02)
[2016-12-04] MEDS: SENNOSIDES/DOCUSATE 8.6/50MG TABLET. PO SCH ×2 (08:03→19:32)
[2016-12-04] MEDS: ESCITALOPRAM 5 MG TABLET PO SCH (08:05)
--- NOTE | 2016-12-04 09:20 | NUR ---
THERAPEUTIC RECREATION GROUP NOTE TITLE :Table Ball ACTIVITY : Movement/ Exercise GOAL : Increase morale, attention, endurance, socialization. Decrease stress/anxiety. DURATION : 70 Minutes RESPONSE : No participation.
--- NOTE | 2016-12-04 11:30 | NUR ---
THERAPEUTIC RECREATION GROUP NOTE TITLE :Movement to Music: Flexibility ACTIVITY : Movement/ Exercise GOAL : Increase morale, attention, flexibility. Decrease stress/anxiety. DURATION : 30 Minutes RESPONSE : Minimal participation. Pt. needed encouragement, demonstration and repeat directions but still was unable to follow directions. She sat with the group and wandered at times with a concerned look on her face. She danced with LACE FINISHER at the end of the session.
[2016-12-04] MEDS: ALPRAZolam 0.25 MG TABLET PO PRN (11:49)
--- NOTE | 2016-12-04 14:00 | NUR ---
THERAPEUTIC RECREATION GROUP NOTE TITLE :Sing along with Stella ACTIVITY : Music GOAL : Increase socialization, elevate mood, stimulate memory DURATION : 45 minutes RESPONSE : Minimal participation. Pt. stayed with the group the entire time but wandered occasionally and needed to be redirected to sit. She danced with volunteer and another patient. She was confused with a worried look on her face most of the time.
[2016-12-04] MEDS: NICOTINE 14MG PATCH. TD SCH (15:01)
[2016-12-04 16:06] VITALS: BP 111/85
[2016-12-04] MEDS: traZODone 50 MG TABLET. PO SCH (19:31)
[2016-12-04] MEDS: MIRTAZAPINE 15 MG TABLET PO SCH (19:31)
[2016-12-04] MEDS: ATORVASTATIN CALCIUM 10 MG TABLET. PO SCH (19:31)
--- NOTE | 2016-12-04 19:59 | PDOC ---
Exam Ty Demential Exam: Ty Note: Please also refer to the separate dictated note~for this date of service dictated separately.~Patient seen individually. Discussed the patient with Nursing staff reviewed the chart.~Reviewed interim history and current functioning. Reviewed vital signs,~Labs/ Radiology~and current medications noted below. Continue current treatment with the changes noted in the dictated addendum note Assessment: Vital Signs: Vital Signs Date Time Temp Pulse Resp B/P (MAP) Pulse Ox O2 Delivery O2 Flow Rate FiO2 12/04/16 16:06 98.9 83 18 111/85 (94) 96 12/02/16 16:34 Room Air I&O Intake and Output 12/04/16 07:00 Intake Total 580 ml Balance 580 ml Intake Oral 580 ml # Bowel Movements 1 Current Medications: Meds: Current Medications Lorazepam (Ativan) 2 mg 1X ONCE IM Last administered on 11/24/16 15:20; Start 11/24/16 at 15:30; Stop 11/24/16 at 15:31; Status DC Acetaminophen (Tylenol) 650 mg PRN Q6HRS PRN PO MILD PAIN / TEMP; Start at 23:30; Stop 11/28/16 at 18:00; Status DC Multi-Ingredient Ointment (Analgesic [place]) 1 nataly PRN QID PRN TP MUSCLE PAIN; Start 11/24/16 at 23:30 Al Hydroxide/Mg Hydroxide (Mylanta Plus Xs) 15 ml PRN AFTMEALHC PRN PO DYSPEPSIA; Start 11/24/16 at 23:30 Magnesium Hydroxide (Milk Of Magnesia) 2,400 mg PRN QHS PRN PO CONSTIPATION; Start 11/24/16 at 23:30 Nicotine (Nicoderm Cq 14mg) 1 patch DAILY TD Last administered on 12/03/16 08: 28; Start 11/25/16 at 09:00; Stop 12/03/16 at 15:46; Status DC Alprazolam (Xanax) 0.25 mg PRN Q8HRS PRN PO ANXIETY / AGITATION Last administered on 12/04/16 11:49; Start 11/25/16 at 00:45 Bupropion HCl (Wellbutrin Sr) 150 mg DAILY PO Last administered on 11/25/16 10 :53; Start 11/25/16 at 09:00; Stop 11/25/16 at 18:44; Status DC Divalproex Sodium (Depakote Sprinkles) 250 mg TID PO Last administered on 19:31; Start 11/25/16 at 09:00 Quetiapine Fumarate (SEROquel) 75 mg BID PO Last administered on 12/04/16 08: 02; Start 11/25/16 at 09:00; Stop 12/04/16 at 18:37; Status DC Trazodone HCl (Desyrel) 25 mg QHS PO Last administered on 11/25/16 20:44; Start 11/25/16 at 21:00; Stop 11/26/16 at 18:07; Status DC Melatonin 6 mg PRN QHS PRN PO INSOMNIA Last administered on 11/30/16 20:34; Start 11/25/16 at 01:00 Aspirin (Children'S Aspirin) 81 mg DAILY PO Last administered on 12/04/16 08: 01; Start 11/25/16 at 09:00 Atorvastatin Calcium (Lipitor) 10 mg QHS PO Last administered on 12/04/16 19: 31; Start 11/25/16 at 21:00 Ibuprofen (Motrin) 400 mg PRN Q4HRS PRN PO MODERATE PAIN; Start 11/25/16 at 00: 45 Multivitamins/ Calcium (Thera-M Plus) 1 tab DAILY PO Last administered on 08:01; Start 11/25/16 at 09:00 Senna/Docusate Sodium (Senna Plus) 2 tab BID PO Last administered on 12/04/16 19:32; Start 11/25/16 at 09:00 Tramadol HCl (Ultram) 50 mg PRN Q8HRS PRN PO MODERATE PAIN; Start 11/25/16 at 00:45 Vitamin D (Vitamin D3) 2,000 unit DAILY PO Last administered on 12/04/16 08:02 ; Start 11/25/16 at 09:00 Escitalopram Oxalate (Lexapro) 5 mg DAILY PO Last administered on 12/03/16 08: 09; Start 11/26/16 at 09:00; Stop 12/03/16 at 17:56; Status DC Mirtazapine (Remeron) 7.5 mg QHS PO Last administered on 11/29/16 21:11; Start 11/25/16 at 21:00; Stop 11/30/16 at 18:21; Status DC Trazodone HCl (Desyrel) 50 mg QHS PO Last administered on 11/29/16 21:11; Start 11/26/16 at 21:00; Stop 11/30/16 at 18:21; Status DC Acetaminophen (Tylenol) 650 mg [id number] PO Last administered on 12/04/16 05:58; Start 11/28/16 at 18:00 Benzocaine (Ora-Jel Maximum) 1 nataly PRN QID PRN TP ORAL PAIN; Start 11/28/16 at 17:15 Amoxicillin (Amoxil) 500 mg [id number] PO Last administered on 12/04/16 19:31; Start 11/28/16 at 21:00 Buspirone HCl (Buspar) 5 mg BID92 PO Last administered on 12/04/16 13:31; Start 11/29/16 at 09:00 Mirtazapine (Remeron) 15 mg QHS PO Last administered on 12/04/16 19:31; Start 11/30/16 at 21:00 Trazodone HCl (Desyrel) 100 mg QHS PO Last administered on 12/04/16 19:31; Start 11/30/16 at 21:00 Trazodone HCl (Desyrel) 100 mg PRN QHS PRN PO INSOMNIA; Start 11/30/16 at 18:30 Escitalopram Oxalate (Lexapro) 10 mg DAILY PO Last administered on 12/04/16 08 :05; Start 12/04/16 at 09:00 Nicotine (Nicoderm Cq 14mg) 1 patch DAILY TD Last administered on 12/04/16 15: 01; Start 12/04/16 at 15:00 Throat Lozenges (Chloraseptic) 1 spray PRN Q2HR PRN PO SORE THROAT; Start 12/04 at 18:30 Quetiapine Fumarate (SEROquel) 25 mg 1400 PO ; Start 12/05/16 at 14:00 Quetiapine Fumarate (SEROquel) 75 mg BIDACBL PO ; Start 12/05/16 at 07:30; Status UNV Quetiapine Fumarate (SEROquel) 75 mg 0900,1700 PO ; Start 12/05/16 at 09:00 Active Scripts Active Reported Bupropion Hcl Sr (Bupropion Hcl) 150 Mg Tablet.er 150 Mg PO DAILY Ibuprofen 400 Mg Tablet 400 Mg PO PRN Q4HRS PRN Tramadol Hcl (Tramadol HCl) 50 Mg Tablet 50 Mg PO PRN Q8HRS PRN Alprazolam 0.25 Mg Tablet 0.25 Mg PO PRN Q8HRS PRN Senna-Docusate Sodium Tablet (Sennosides/Docusate Sodium) 1 Each Tablet 2 Tab PO BID Depakote Sprinkle (Divalproex Sodium) 125 Mg Cap.sprink 250 Mg PO TID Trazodone Hcl 50 Mg Tablet 25 Mg PO QHS Melatonin 3 Mg Tablet 6 Mg PO QHS Atorvastatin Calcium 10 Mg Tablet 10 Mg PO QHS Vitamin D (Cholecalciferol (Vitamin D3)) 2,000 Unit Capsule 2,000 Unit PO DAILY Seroquel (Quetiapine Fumarate) 25 Mg Tablet 75 Mg PO BID Thera M Plus Tablet (Multivits,Ca,Minerals/Iron/FA) 1 Each Tablet 1 Tab PO DAILY Aspirin 81 Mg Tab.chew 81 Mg PO DAILY Diagnosis: Problems: (1) Anxiety disorder (2) Dementia with behavioral disturbance (3) Dementia in Alzheimer's disease with delusions (4) Dementia in Alzheimer's disease with depression (5) Dementia, vascular, with delusions (6) Dementia, vascular, with depression (7) Impulse control disorder HUNTER SCHROEDER MD Dec 04, 2016 19:59
--- NOTE | 2016-12-04 20:12 | NUR ---
Behavior Intervention Response and Plan: BIRP Note: Behavior: Assumed Care of patient, patient located in Hallway at shift change. Patient exhibited the following behavior Wandering, Restless, Disorganized. Brief assessment on rounds of vital signs, medication needs, lab studies, and pain. Treatment plan problems 1 and 2. Intervention: Patient assessed and the following interventions initiated safety checks 15 Minute Checks Medications , Oral Hydration , Head to toe Assessment. Response: After interactions and interventions patient responded in the following manner, Delusions , Irritable ,Resistive. Continue to assess behaviors and condition will continue to monitor throughout the shift as needed. Plan: Continue to monitor Master Treatment Plan for patient's progress toward short term goals of Medication Compliance, Improved Mood, half-way goals to return to previous living setting vs placement. Continue to assess patient for changes in above assessment. Monitor for medication needs, pain, and safety concerns. Hourly rounding performed to ensure safe environment.
--- NOTE | 2016-12-04 21:59 | NUR ---
Behavior Intervention Response and Plan: BIRP Note: Behavior: Assumed Care of patient, patient located in Patient Room at shift change. Patient exhibited the following behavior Restless, Disorganized, Withdrawn. Brief assessment on rounds of vital signs, medication needs, lab studies, and pain. Treatment plan problems . Intervention: Patient assessed and the following interventions initiated safety checks 15 Minute Checks Cognitive Assessment , Head to toe Assessment , Medications. Response: After interactions and interventions patient responded in the following manner, Resistive , Delusions ,Sarcastic. Continue to assess behaviors and condition will continue to monitor throughout the shift as needed. 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 Continue to assess patient for changes in above assessment. Monitor for medication needs, pain, and safety concerns. Hourly rounding performed to ensure safe environment.
[2016-12-04] MEDS: PHENOL ORAL SPRAY 177ML BOTTLE. PO PRN (22:29)
[2016-12-05] MEDS: ALPRAZolam 0.25 MG TABLET PO PRN ×2 (00:33→15:29)
--- NOTE | 2016-12-05 04:10 | PN ---
DATE: 12/04/2016 This note covers the elements not covered in my initial note of 12/04/2016. SUBJECTIVE: The patient was seen individually evening of 12/04/2016. Per nursing report, she has been resistive and feisty, received Xanax at 11:50, restarted nicotine patch, slept till 11:00 a.m., had a large bowel movement. She complains of sore throat and we will start Cepacol sprayed. REVIEW OF SYSTEMS: Other than above no CV, , GI, eye system symptoms on review. Reliability poor. MENTAL STATUS EXAM: Oriented to herself. Insight, judgment, recent and remote memory, attention, concentration, fund of knowledge poor, consistent with her diagnosis mentioned in my initial note. PLAN: Continue psychotropics mentioned in my initial note, increase Seroquel from 75 b.i.d. to 75 in the morning at 9:00 a.m. and at 5 p.m., add 25 mg at 2 p.m. MAN MKarie SCHROEDER MD DR: TONIA/ivan JOB#: [id number] / [id number]
[2016-12-05] MEDS: ACETAMINOPHEN 325 MG TABLET PO SCH ×2 (05:36→17:14)
[2016-12-05] MEDS ORDERED: QUEtiapine 25 MG TABLET. PO SCH (07:30)
[2016-12-05] MEDS: MULTIVITAMIN with MINERAL TABLET. PO SCH (07:48)
[2016-12-05] MEDS: ESCITALOPRAM 5 MG TABLET PO SCH (07:48)
[2016-12-05] MEDS: NICOTINE 14MG PATCH. TD SCH (07:48)
[2016-12-05] MEDS: AMOXICILLIN 250 MG CAPSULE PO SCH ×3 (07:48→20:12)
[2016-12-05] MEDS: SENNOSIDES/DOCUSATE 8.6/50MG TABLET. PO SCH ×2 (07:48→20:13)
[2016-12-05] MEDS: busPIRone 5 MG TABLET. PO SCH ×2 (07:49→13:58)
[2016-12-05] MEDS: DIVALPROEX 125 MG CAP.SPRINK PO SCH ×3 (07:49→20:12)
[2016-12-05] MEDS: ASPIRIN 81 MG TAB.CHEW PO SCH (07:49)
[2016-12-05] MEDS: CHOLECALCIFEROL (VITAMIN D3) 1,000 UNIT TABLET PO SCH (07:49)
[2016-12-05] MEDS: QUEtiapine 25 MG TABLET. PO SCH ×3 (07:51→17:12)
--- NOTE | 2016-12-05 10:30 | NUR ---
THERAPEUTIC RECREATION GROUP NOTE TITLE :Music Bingo ACTIVITY : Music GOAL : Increase socialization, elevate mood, stimulate memory DURATION : 60 minutes RESPONSE : No participation.
--- NOTE | 2016-12-05 11:09 | NUR ---
Behavior Intervention Response and Plan: BIRP Note: Behavior: Assumed Care of patient, patient located in Patient Room at shift change. Patient exhibited the following behavior Sleeping, Withdrawn, Cooperative. Brief assessment on rounds of vital signs, medication needs, lab studies, and pain. Treatment plan problems 1 and 2. Intervention: Patient assessed and the following interventions initiated safety checks 15 Minute Checks Head to toe Assessment , Medications , Oral Hydration. Response: After interactions and interventions patient responded in the following manner, Disorganized , Compliant ,Sleeping. Continue to assess behaviors and condition will continue to monitor throughout the shift as needed. Plan: Continue to monitor Master Treatment Plan for patient's progress toward short term goals of Medication Compliance, Decreased Anxiety, nursing home goals to return to previous living setting vs placement. Continue to assess patient for changes in above assessment. Monitor for medication needs, pain, and safety concerns. Hourly rounding performed to ensure safe environment.
[2016-12-05] MEDS: PHENOL ORAL SPRAY 177ML BOTTLE. PO PRN (13:56)
--- NOTE | 2016-12-05 14:45 | NUR ---
THERAPEUTIC RECREATION GROUP NOTE TITLE :Coloring stars ACTIVITY : Arts and Crafts GOAL : Reduce stress, anxiety. Increase creativity and fine motor functioning DURATION : 60 minutes RESPONSE : Minimal participation. Pt. had a sad and worried face all through the session. She only sat and colored with FISHING VESSEL DECKHAND for a few minutes. She needed hand over hand assistance but did not appear to understand what she was doing. She got up and wandered around after that.
[2016-12-05] MEDS: traZODone 50 MG TABLET. PO SCH (20:12)
[2016-12-05] MEDS: ATORVASTATIN CALCIUM 10 MG TABLET. PO SCH (20:12)
[2016-12-05] MEDS: MIRTAZAPINE 15 MG TABLET PO SCH (20:13)
--- NOTE | 2016-12-05 20:22 | PDOC ---
Exam Ty Demential Exam: Ty Note: Please also refer to the separate dictated note~for this date of service dictated separately.~Patient seen individually. Discussed the patient with Nursing staff reviewed the chart.~Reviewed interim history and current functioning. Reviewed vital signs,~Labs/ Radiology~and current medications noted below. Continue current treatment with the changes noted in the dictated addendum note Assessment: Vital Signs: Vital Signs Date Time Temp Pulse Resp B/P (MAP) Pulse Ox O2 Delivery O2 Flow Rate FiO2 12/04/16 16:06 98.9 83 18 111/85 (94) 96 12/02/16 16:34 Room Air I&O Intake and Output 12/05/16 07:00 Intake Total 720 ml Balance 720 ml Intake Oral 720 ml # Voids 1 # Bowel Movements 1 Current Medications: Meds: Current Medications Lorazepam (Ativan) 2 mg 1X ONCE IM Last administered on 11/24/16 15:20; Start 11/24/16 at 15:30; Stop 11/24/16 at 15:31; Status DC Acetaminophen (Tylenol) 650 mg PRN Q6HRS PRN PO MILD PAIN / TEMP; Start at 23:30; Stop 11/28/16 at 18:00; Status DC Multi-Ingredient Ointment (Analgesic [place]) 1 nataly PRN QID PRN TP MUSCLE PAIN; Start 11/24/16 at 23:30 Al Hydroxide/Mg Hydroxide (Mylanta Plus Xs) 15 ml PRN AFTMEALHC PRN PO DYSPEPSIA; Start 11/24/16 at 23:30 Magnesium Hydroxide (Milk Of Magnesia) 2,400 mg PRN QHS PRN PO CONSTIPATION; Start 11/24/16 at 23:30 Nicotine (Nicoderm Cq 14mg) 1 patch DAILY TD Last administered on 12/03/16 08: 28; Start 11/25/16 at 09:00; Stop 12/03/16 at 15:46; Status DC Alprazolam (Xanax) 0.25 mg PRN Q8HRS PRN PO ANXIETY / AGITATION Last administered on 12/05/16 15:29; Start 11/25/16 at 00:45; Stop 12/05/16 at 18:42 ; Status DC Bupropion HCl (Wellbutrin Sr) 150 mg DAILY PO Last administered on 11/25/16 10 :53; Start 11/25/16 at 09:00; Stop 11/25/16 at 18:44; Status DC Divalproex Sodium (Depakote Sprinkles) 250 mg TID PO Last administered on 20:12; Start 11/25/16 at 09:00 Quetiapine Fumarate (SEROquel) 75 mg BID PO Last administered on 12/04/16 08: 02; Start 11/25/16 at 09:00; Stop 12/04/16 at 18:37; Status DC Trazodone HCl (Desyrel) 25 mg QHS PO Last administered on 11/25/16 20:44; Start 11/25/16 at 21:00; Stop 11/26/16 at 18:07; Status DC Melatonin 6 mg PRN QHS PRN PO INSOMNIA Last administered on 11/30/16 20:34; Start 11/25/16 at 01:00 Aspirin (Children'S Aspirin) 81 mg DAILY PO Last administered on 12/05/16 07: 49; Start 11/25/16 at 09:00 Atorvastatin Calcium (Lipitor) 10 mg QHS PO Last administered on 12/05/16 20: 12; Start 11/25/16 at 21:00 Ibuprofen (Motrin) 400 mg PRN Q4HRS PRN PO MODERATE PAIN Last administered on 23:32; Start 11/25/16 at 00:45 Multivitamins/ Calcium (Thera-M Plus) 1 tab DAILY PO Last administered on 07:48; Start 11/25/16 at 09:00 Senna/Docusate Sodium (Senna Plus) 2 tab BID PO Last administered on 12/05/16 20:13; Start 11/25/16 at 09:00 Tramadol HCl (Ultram) 50 mg PRN Q8HRS PRN PO MODERATE PAIN; Start 11/25/16 at 00:45 Vitamin D (Vitamin D3) 2,000 unit DAILY PO Last administered on 12/05/16 07:49 ; Start 11/25/16 at 09:00 Escitalopram Oxalate (Lexapro) 5 mg DAILY PO Last administered on 12/03/16 08: 09; Start 11/26/16 at 09:00; Stop 12/03/16 at 17:56; Status DC Mirtazapine (Remeron) 7.5 mg QHS PO Last administered on 11/29/16 21:11; Start 11/25/16 at 21:00; Stop 11/30/16 at 18:21; Status DC Trazodone HCl (Desyrel) 50 mg QHS PO Last administered on 11/29/16 21:11; Start 11/26/16 at 21:00; Stop 11/30/16 at 18:21; Status DC Acetaminophen (Tylenol) 650 mg BID66 PO Last administered on 12/05/16 17:14; Start 11/28/16 at 18:00 Benzocaine (Ora-Jel Maximum) 1 nataly PRN QID PRN TP ORAL PAIN; Start 11/28/16 at 17:15 Amoxicillin (Amoxil) 500 mg [id number] PO Last administered on 12/05/16 20:12; Start 11/28/16 at 21:00 Buspirone HCl (Buspar) 5 mg BID92 PO Last administered on 12/05/16 13:58; Start 11/29/16 at 09:00; Stop 12/05/16 at 18:35; Status DC Mirtazapine (Remeron) 15 mg QHS PO Last administered on 12/05/16 20:13; Start 11/30/16 at 21:00 Trazodone HCl (Desyrel) 100 mg QHS PO Last administered on 12/05/16 20:12; Start 11/30/16 at 21:00 Trazodone HCl (Desyrel) 100 mg PRN QHS PRN PO INSOMNIA; Start 11/30/16 at 18:30 Escitalopram Oxalate (Lexapro) 10 mg DAILY PO Last administered on 12/05/16 07 :48; Start 12/04/16 at 09:00 Nicotine (Nicoderm Cq 14mg) 1 patch DAILY TD Last administered on 12/05/16 07: 48; Start 12/04/16 at 15:00 Throat Lozenges (Chloraseptic) 1 spray PRN Q2HR PRN PO SORE THROAT Last administered on 12/05/16 13:56; Start 12/04/16 at 18:30 Quetiapine Fumarate (SEROquel) 25 mg 1400 PO Last administered on 12/05/16t 13: 59; Start 12/05/16 at 14:00 Quetiapine Fumarate (SEROquel) 75 mg BIDACBL PO ; Start 12/05/16 at 07:30; Status UNV Quetiapine Fumarate (SEROquel) 75 mg 0900,1700 PO Last administered on t 17:12; Start 12/05/16 at 09:00 Buspirone HCl (Buspar) 10 mg DAILY PO ; Start 12/06/16 at 09:00; Stop 12/06/16 at 09:00; Status DC Buspirone HCl (Buspar) 5 mg 1400 PO ; Start 12/06/16 at 14:00; Stop 12/06/16 at 14:00; Status DC Donepezil HCl (Aricept) 5 mg DAILY PO ; Start 12/06/16 at 09:00 Olanzapine (ZyPREXA ZYDIS) 2.5 mg PRN Q2HR PRN PO ANXIETY / AGITATION; Start at 18:45 Buspirone HCl (Buspar) 10 mg BID92 PO ; Start 12/06/16 at 09:00 Active Scripts Active Reported Bupropion Hcl Sr (Bupropion Hcl) 150 Mg Tablet.er 150 Mg PO DAILY Ibuprofen 400 Mg Tablet 400 Mg PO PRN Q4HRS PRN Tramadol Hcl (Tramadol HCl) 50 Mg Tablet 50 Mg PO PRN Q8HRS PRN Alprazolam 0.25 Mg Tablet 0.25 Mg PO PRN Q8HRS PRN Senna-Docusate Sodium Tablet (Sennosides/Docusate Sodium) 1 Each Tablet 2 Tab PO BID Depakote Sprinkle (Divalproex Sodium) 125 Mg Cap.sprink 250 Mg PO TID Trazodone Hcl 50 Mg Tablet 25 Mg PO QHS Melatonin 3 Mg Tablet 6 Mg PO QHS Atorvastatin Calcium 10 Mg Tablet 10 Mg PO QHS Vitamin D (Cholecalciferol (Vitamin D3)) 2,000 Unit Capsule 2,000 Unit PO DAILY Seroquel (Quetiapine Fumarate) 25 Mg Tablet 75 Mg PO BID Thera M Plus Tablet (Multivits,Ca,Minerals/Iron/FA) 1 Each Tablet 1 Tab PO DAILY Aspirin 81 Mg Tab.chew 81 Mg PO DAILY Diagnosis: Problems: (1) Anxiety disorder (2) Dementia with behavioral disturbance (3) Dementia in Alzheimer's disease with delusions (4) Dementia in Alzheimer's disease with depression (5) Dementia, vascular, with delusions (6) Dementia, vascular, with depression (7) Impulse control disorder HUNTER SCHROEDER MD Dec 05, 2016 20:22
--- NOTE | 2016-12-05 21:00 | NUR ---
Behavior Intervention Response and Plan: BIRP Note: Behavior: Assumed Care of patient, patient located in Hallway at shift change. Patient exhibited the following behavior Wandering, Restless, Disorganized. Brief assessment on rounds of vital signs, medication needs, lab studies, and pain. Treatment plan problems . Intervention: Patient assessed and the following interventions initiated safety checks 15 Minute Checks Cognitive Assessment , Head to toe Assessment , Medications. Response: After interactions and interventions patient responded in the following manner, Compliant , Cooperative ,Disorganized. Continue to assess behaviors and condition will continue to monitor throughout the shift as needed. Plan: Continue to monitor Master Treatment Plan for patient's progress toward short term goals of Decreased Agitation, Medication Compliance, skilled nursing goals to return to previous living setting vs placement. Continue to assess patient for changes in above assessment. Monitor for medication needs, pain, and safety concerns. Hourly rounding performed to ensure safe environment.
--- NOTE | 2016-12-06 04:18 | PN ---
DATE: 12/05/2016 SUBJECTIVE: This is late entry for 12/05/2016. This note covers elements not covered in my initial note. The patient slept 4-1/4 hours and slept until 10:50 this morning. Anxious and restless in the afternoon. Received Xanax with no affect. Somewhat paranoid, suspicious, and repeatedly making statements "are you going to kill me." Her visited and said that she has done well on Aricept in the past for her crying spells and we will initiate this at 10 mg a day. REVIEW OF SYSTEMS: No CV, , pulmonary, or eye system symptoms on review. She does have a sore throat and is on Cepacol spray. MENTAL STATUS EXAM: Oriented to herself. Insight, judgment, recent and remote memory, attention, concentration, fund of knowledge poor consistent with her diagnosis mentioned in my initial note. PLAN: Check UA. Start Aricept and increase BuSpar, which is currently 5 mg twice a day and 15 at night. We will increase it to 10 mg in the morning and 5 at 1400. Continue 15 at night. Rest unchanged from my initial note. MAN Panchito SCHROEDER MD DR: TONIA/ivan JOB#: [id number] / [id number]
[2016-12-06] MEDS: ACETAMINOPHEN 325 MG TABLET PO SCH ×2 (05:35→17:57)
[2016-12-06 06:09] VITALS: BP 111/65
[2016-12-06] MEDS: AMOXICILLIN 250 MG CAPSULE PO SCH ×4 (08:09→21:00)
[2016-12-06] MEDS: DIVALPROEX 125 MG CAP.SPRINK PO SCH ×4 (08:09→21:00)
[2016-12-06] MEDS: ESCITALOPRAM 5 MG TABLET PO SCH (08:09)
[2016-12-06] MEDS: ASPIRIN 81 MG TAB.CHEW PO SCH (08:10)
[2016-12-06] MEDS: QUEtiapine 25 MG TABLET. PO SCH ×3 (08:10→17:57)
[2016-12-06] MEDS: CHOLECALCIFEROL (VITAMIN D3) 1,000 UNIT TABLET PO SCH (08:10)
[2016-12-06] MEDS: MULTIVITAMIN with MINERAL TABLET. PO SCH (08:10)
[2016-12-06] MEDS: SENNOSIDES/DOCUSATE 8.6/50MG TABLET. PO SCH ×3 (08:10→21:00)
[2016-12-06] MEDS: NICOTINE 14MG PATCH. TD SCH (08:10)
[2016-12-06] MEDS: busPIRone 10 MG TABLET. PO SCH ×2 (08:11→13:43)
[2016-12-06] MEDS: DONEPEZIL HCL 5 MG TABLET. PO SCH (08:11)
[2016-12-06] MEDS ORDERED: busPIRone 10 MG TABLET. PO SCH (09:00)
--- NOTE | 2016-12-06 11:16 | NUR ---
Behavior Intervention Response and Plan: BIRP Note: Behavior: Assumed Care of patient, patient located in Day Room at shift change. Patient exhibited the following behavior Wandering, Restless, Disorganized. Brief assessment on rounds of vital signs, medication needs, lab studies, and pain. Treatment plan problems 1 and 2. Intervention: Patient assessed and the following interventions initiated safety checks 15 Minute Checks Head to toe Assessment , Medications , Oral Hydration. Response: After interactions and interventions patient responded in the following manner, Attention Seeking , Non Compliant ,Delusions. Continue to assess behaviors and condition will continue to monitor throughout the shift as needed. 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 Continue to assess patient for changes in above assessment. Monitor for medication needs, pain, and safety concerns. Hourly rounding performed to ensure safe environment.
--- NOTE | 2016-12-06 13:35 | NUR ---
SW had message from pt facility HU Guevara tried to return call left message.
[2016-12-06] MEDS ORDERED: busPIRone 5 MG TABLET. PO SCH (14:00)
--- NOTE | 2016-12-06 14:15 | NUR ---
THERAPEUTIC RECREATION GROUP NOTE TITLE :Radio Hour: [employer] Show ACTIVITY : Cognitive stimulation GOAL : Maintain or improve cognitive functioning, memory, imagination DURATION : 45 Minutes RESPONSE : No participation.
--- NOTE | 2016-12-06 14:36 | NUR ---
HU spoke with Abby at [facility]. state Elizalde called from her current facility asking if they were accepting pt. She states Tonio faxed over information and pt had Medicaid pending. HU informed her SW was told they had Medicaid and it wasn't pending. HU will call pt . [facility] able to accept if pt has Medicaid.
--- NOTE | 2016-12-06 15:00 | NUR ---
HU called and spoke with pt Sister Emily. Pt sister reports pt has Medicaid and she just hung up the phone with pt and they will be going to look at [facility] on Saturday, she reports he wanted to wait until next week, however pt sister told him that they needed to go as soon as they could not to lose the bed. HU agreed. HU will also call pt .
--- NOTE | 2016-12-06 19:52 | PDOC ---
Exam Ty Demential Exam: Ty Note: Please also refer to the separate dictated note~for this date of service dictated separately.~Patient seen individually. Discussed the patient with Nursing staff reviewed the chart.~Reviewed interim history and current functioning. Reviewed vital signs,~Labs/ Radiology~and current medications noted below. Continue current treatment with the changes noted in the dictated addendum note Assessment: Vital Signs: Vital Signs Date Time Temp Pulse Resp B/P (MAP) Pulse Ox O2 Delivery O2 Flow Rate FiO2 12/06/16 16:53 98.1 20 12/06/16 06:09 63 111/65 (80) 97 12/02/16 16:34 Room Air I&O Intake and Output 12/06/16 07:00 Intake Total 840 ml Balance 840 ml Intake Oral 840 ml Current Medications: Meds: Current Medications Lorazepam (Ativan) 2 mg 1X ONCE IM Last administered on 11/24/16 15:20; Start 11/24/16 at 15:30; Stop 11/24/16 at 15:31; Status DC Acetaminophen (Tylenol) 650 mg PRN Q6HRS PRN PO MILD PAIN / TEMP; Start at 23:30; Stop 11/28/16 at 18:00; Status DC Multi-Ingredient Ointment (Analgesic [place]) 1 nataly PRN QID PRN TP MUSCLE PAIN; Start 11/24/16 at 23:30 Al Hydroxide/Mg Hydroxide (Mylanta Plus Xs) 15 ml PRN AFTMEALHC PRN PO DYSPEPSIA; Start 11/24/16 at 23:30 Magnesium Hydroxide (Milk Of Magnesia) 2,400 mg PRN QHS PRN PO CONSTIPATION; Start 11/24/16 at 23:30 Nicotine (Nicoderm Cq 14mg) 1 patch DAILY TD Last administered on 12/03/16 08: 28; Start 11/25/16 at 09:00; Stop 12/03/16 at 15:46; Status DC Alprazolam (Xanax) 0.25 mg PRN Q8HRS PRN PO ANXIETY / AGITATION Last administered on 12/05/16 15:29; Start 11/25/16 at 00:45; Stop 12/05/16 at 18:42 ; Status DC Bupropion HCl (Wellbutrin Sr) 150 mg DAILY PO Last administered on 11/25/16 10 :53; Start 11/25/16 at 09:00; Stop 11/25/16 at 18:44; Status DC Divalproex Sodium (Depakote Sprinkles) 250 mg TID PO Last administered on 13:44; Start 11/25/16 at 09:00 Quetiapine Fumarate (SEROquel) 75 mg BID PO Last administered on 12/04/16 08: 02; Start 11/25/16 at 09:00; Stop 12/04/16 at 18:37; Status DC Trazodone HCl (Desyrel) 25 mg QHS PO Last administered on 11/25/16 20:44; Start 11/25/16 at 21:00; Stop 11/26/16 at 18:07; Status DC Melatonin 6 mg PRN QHS PRN PO INSOMNIA Last administered on 11/30/16 20:34; Start 11/25/16 at 01:00 Aspirin (Children'S Aspirin) 81 mg DAILY PO Last administered on 12/06/16 08: 10; Start 11/25/16 at 09:00 Atorvastatin Calcium (Lipitor) 10 mg QHS PO Last administered on 12/05/16 20: 12; Start 11/25/16 at 21:00 Ibuprofen (Motrin) 400 mg PRN Q4HRS PRN PO MODERATE PAIN Last administered on 23:32; Start 11/25/16 at 00:45 Multivitamins/ Calcium (Thera-M Plus) 1 tab DAILY PO Last administered on 08:10; Start 11/25/16 at 09:00 Senna/Docusate Sodium (Senna Plus) 2 tab BID PO Last administered on 12/06/16 08:10; Start 11/25/16 at 09:00 Tramadol HCl (Ultram) 50 mg PRN Q8HRS PRN PO MODERATE PAIN; Start 11/25/16 at 00:45 Vitamin D (Vitamin D3) 2,000 unit DAILY PO Last administered on 12/06/16 08:10 ; Start 11/25/16 at 09:00 Escitalopram Oxalate (Lexapro) 5 mg DAILY PO Last administered on 12/03/16 08: 09; Start 11/26/16 at 09:00; Stop 12/03/16 at 17:56; Status DC Mirtazapine (Remeron) 7.5 mg QHS PO Last administered on 11/29/16 21:11; Start 11/25/16 at 21:00; Stop 11/30/16 at 18:21; Status DC Trazodone HCl (Desyrel) 50 mg QHS PO Last administered on 11/29/16 21:11; Start 11/26/16 at 21:00; Stop 11/30/16 at 18:21; Status DC Acetaminophen (Tylenol) 650 mg [id number] PO Last administered on 12/06/16 17:57; Start 11/28/16 at 18:00 Benzocaine (Ora-Jel Maximum) 1 nataly PRN QID PRN TP ORAL PAIN; Start 11/28/16 at 17:15 Amoxicillin (Amoxil) 500 mg [id number] PO Last administered on 12/06/16 13:43; Start 11/28/16 at 21:00; Stop 12/06/16 at 23:00 Buspirone HCl (Buspar) 5 mg BID92 PO Last administered on 12/05/16 13:58; Start 11/29/16 at 09:00; Stop 12/05/16 at 18:35; Status DC Mirtazapine (Remeron) 15 mg QHS PO Last administered on 12/05/16 20:13; Start 11/30/16 at 21:00 Trazodone HCl (Desyrel) 100 mg QHS PO Last administered on 12/05/16 20:12; Start 11/30/16 at 21:00 Trazodone HCl (Desyrel) 100 mg PRN QHS PRN PO INSOMNIA; Start 11/30/16 at 18:30 Escitalopram Oxalate (Lexapro) 10 mg DAILY PO Last administered on 12/06/16 08 :09; Start 12/04/16 at 09:00 Nicotine (Nicoderm Cq 14mg) 1 patch DAILY TD Last administered on 12/06/16 08: 10; Start 12/04/16 at 15:00 Throat Lozenges (Chloraseptic) 1 spray PRN Q2HR PRN PO SORE THROAT Last administered on 12/05/16 13:56; Start 12/04/16 at 18:30 Quetiapine Fumarate (SEROquel) 25 mg 1400 PO Last administered on 12/06/16 13: 44; Start 12/05/16 at 14:00 Quetiapine Fumarate (SEROquel) 75 mg BIDACBL PO ; Start 12/05/16 at 07:30; Status UNV Quetiapine Fumarate (SEROquel) 75 mg 0900,1700 PO Last administered on 17:57; Start 12/05/16 at 09:00 Buspirone HCl (Buspar) 10 mg DAILY PO ; Start 12/06/16 at 09:00; Stop 12/06/16 at 09:00; Status DC Buspirone HCl (Buspar) 5 mg 1400 PO ; Start 12/06/16 at 14:00; Stop 12/06/16 at 14:00; Status DC Donepezil HCl (Aricept) 5 mg DAILY PO Last administered on 12/06/16 08:11; Start 12/06/16 at 09:00 Olanzapine (ZyPREXA ZYDIS) 2.5 mg PRN Q2HR PRN PO ANXIETY / AGITATION Last administered on 12/06/16 13:45; Start 12/05/16 at 18:45 Buspirone HCl (Buspar) 10 mg BID92 PO Last administered on 12/06/16 13:43; Start 12/06/16 at 09:00 Active Scripts Active Reported Bupropion Hcl Sr (Bupropion Hcl) 150 Mg Tablet.er 150 Mg PO DAILY Ibuprofen 400 Mg Tablet 400 Mg PO PRN Q4HRS PRN Tramadol Hcl (Tramadol HCl) 50 Mg Tablet 50 Mg PO PRN Q8HRS PRN Alprazolam 0.25 Mg Tablet 0.25 Mg PO PRN Q8HRS PRN Senna-Docusate Sodium Tablet (Sennosides/Docusate Sodium) 1 Each Tablet 2 Tab PO BID Depakote Sprinkle (Divalproex Sodium) 125 Mg Cap.sprink 250 Mg PO TID Trazodone Hcl 50 Mg Tablet 25 Mg PO QHS Melatonin 3 Mg Tablet 6 Mg PO QHS Atorvastatin Calcium 10 Mg Tablet 10 Mg PO QHS Vitamin D (Cholecalciferol (Vitamin D3)) 2,000 Unit Capsule 2,000 Unit PO DAILY Seroquel (Quetiapine Fumarate) 25 Mg Tablet 75 Mg PO BID Thera M Plus Tablet (Multivits,Ca,Minerals/Iron/FA) 1 Each Tablet 1 Tab PO DAILY Aspirin 81 Mg Tab.chew 81 Mg PO DAILY Diagnosis: Problems: (1) Anxiety disorder (2) Dementia with behavioral disturbance (3) Dementia in Alzheimer's disease with delusions (4) Dementia in Alzheimer's disease with depression (5) Dementia, vascular, with delusions (6) Dementia, vascular, with depression (7) Impulse control disorder HUNTER SCHROEDER MD Dec 06, 2016 19:52
[2016-12-06] MEDS: MIRTAZAPINE 15 MG TABLET PO SCH ×2 (20:25→21:00)
[2016-12-06] MEDS: traZODone 50 MG TABLET. PO SCH ×2 (20:25→21:00)
[2016-12-06] MEDS: ATORVASTATIN CALCIUM 10 MG TABLET. PO SCH ×2 (20:25→21:00)
--- NOTE | 2016-12-06 23:00 | NUR ---
Nursing Note Patient is very agitated @ HS med pass. Patient refusing to take any mediation either in food or whole. Patient attempting to hit this nurse and also attempting to hit medication out of hand. Patient has been approached by multiple staff members but continues to refuse medications. Medications charted as Non administered.
--- NOTE | 2016-12-06 23:46 | NUR ---
Behavior Intervention Response and Plan: BIRP Note: Behavior: Assumed Care of patient, patient located in Day Room at shift change. Patient exhibited the following behavior Non Compliant, Agitated, Drowsy. Brief assessment on rounds of vital signs, medication needs, lab studies, and pain. Treatment plan problems Dementia W/BD and fall risk. Intervention: Patient assessed and the following interventions initiated safety checks 15 Minute Checks Cognitive Assessment , Cognitive Assessment , ADL's. Response: After interactions and interventions patient responded in the following manner, Wandering , Disorganized ,Drowsy. Continue to assess behaviors and condition will continue to monitor throughout the shift as needed. 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 Continue to assess patient for changes in above assessment. Monitor for medication needs, pain, and safety concerns. Hourly rounding performed to ensure safe environment.
[2016-12-07] MEDS: ACETAMINOPHEN 325 MG TABLET PO SCH ×3 (05:28→18:06)
[2016-12-07 06:01] VITALS: BP 117/71
[2016-12-07 07:33] LABS: BASO % 1 % (0-3); EOS # 0.1 x10^3/uL (0.0-0.7); EOS % 2 % (0-3); HEMATOCRIT 34.6 % (36.0-47.0); HEMOGLOBIN 11.3 g/dL (12.0-15.5); LYMPH # 1.3 x10^3/uL (1.0-4.8); LYMPH % 23 % (24-48); MEAN CORPUSCULAR HEMOGLOBIN 30 pg (25-35); MEAN CORPUSCULAR HGB CONC 33 g/dL (31-37); MEAN CORPUSCULAR VOLUME 91 fL (79-100); MONO # 0.6 x10^3/uL (0.0-1.1); MONO % 10 % (0-9); NEUT # 3.6 x10^3uL (1.8-7.7); NEUT % 64 % (31-73); PLATELET COUNT 200 x10^3/uL (140-400); RED BLOOD COUNT 3.79 x10^6/uL (3.50-5.40); WHITE BLOOD COUNT 5.7 x10^3/uL (4.0-11.0)
--- NOTE | 2016-12-07 07:39 | NUR ---
HU called pt and spoke with him regarding this, he states he is going to bring a copy of Medicaid card to [employer] [facility], and to hospital once he comes to see pt again. Pt reports he is hoping everything works out and pt can go to [facility] as he states he would rather pt not return to her current placement. HU had message from [facility] and will call HU after tour on Saturday regarding admission.
[2016-12-07 07:46] LABS: ALBUMIN/GLOBULIN RATIO 0.9 (1.0-1.7); ALK PHOS 58 U/L (46-116); ALT (SGPT) 11 U/L (14-59); ANION GAP 7 (6-14); AST (SGOT) 13 U/L (15-37); BLOOD UREA NITROGEN 13 mg/dL (7-20); BUN/CREATININE RATIO 14 (6-20); CALCIUM 8.8 mg/dL (8.5-10.1); CARBON DIOXIDE 30 mmol/L (21-32); CHLORIDE 107 mmol/L (98-107); CREATININE 0.9 mg/dL (0.6-1.0); GLUCOSE 88 mg/dL (70-99); MAGNESIUM 2.3 mg/dL (1.8-2.4); POTASSIUM 4.3 mmol/L (3.5-5.1); SODIUM 144 mmol/L (136-145); TOTAL BILIRUBIN 0.3 mg/dL (0.2-1.0); TOTAL PROTEIN 6.5 g/dL (6.4-8.2)
[2016-12-07 07:57] LABS: VAL ACID 44 mcg/mL (50-100)
[2016-12-07] MEDS: DIVALPROEX 125 MG CAP.SPRINK PO SCH ×3 (08:12→20:12)
[2016-12-07] MEDS: QUEtiapine 25 MG TABLET. PO SCH ×3 (08:12→18:06)
[2016-12-07] MEDS: MULTIVITAMIN with MINERAL TABLET. PO SCH (08:13)
[2016-12-07] MEDS: NICOTINE 14MG PATCH. TD SCH (08:13)
[2016-12-07] MEDS: CHOLECALCIFEROL (VITAMIN D3) 1,000 UNIT TABLET PO SCH (08:13)
[2016-12-07] MEDS: busPIRone 10 MG TABLET. PO SCH ×2 (08:13→14:24)
[2016-12-07] MEDS: SENNOSIDES/DOCUSATE 8.6/50MG TABLET. PO SCH ×2 (08:14→20:13)
[2016-12-07] MEDS: DONEPEZIL HCL 5 MG TABLET. PO SCH (08:14)
[2016-12-07] MEDS: ESCITALOPRAM 5 MG TABLET PO SCH (08:14)
[2016-12-07] MEDS: ASPIRIN 81 MG TAB.CHEW PO SCH (08:14)
--- NOTE | 2016-12-07 09:15 | NUR ---
THERAPEUTIC RECREATION GROUP NOTE TITLE :Social Hour: Pool Noodles/ Balloon, Get to know you questions, News Headlines ACTIVITY : Activities and Games GOAL : Increase alertness/focus, decrease stress DURATION : 60 Minutes RESPONSE : No participation.
--- NOTE | 2016-12-07 11:00 | NUR ---
Behavior Intervention Response and Plan: BIRP Note: Behavior: Assumed Care of patient, patient located in Hallway at shift change. Patient exhibited the following behavior Disorganized, wandering, Resistive. Brief assessment on rounds of vital signs, medication needs, lab studies, and pain. Treatment plan problems . Intervention: Patient assessed and the following interventions initiated safety checks 15 Minute Checks Call wallace in reach , Medications , Oral Hydration. Response: After interactions and interventions patient responded in the following manner, Wandering , Disorganized ,Non Compliant. Continue to assess behaviors and condition will continue to monitor throughout the shift as needed. 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 Continue to assess patient for changes in above assessment. Monitor for medication needs, pain, and safety concerns. Hourly rounding performed to ensure safe environment.
--- NOTE | 2016-12-07 13:00 | NUR ---
Behavior Intervention Response and Plan: BIRP Note: Behavior: Assumed Care of patient, patient located in Hallway at shift change. Patient exhibited the following behavior Calm, Disorganized, Compliant. Brief assessment on rounds of vital signs, medication needs, lab studies, and pain. Treatment plan problems . Intervention: Patient assessed and the following interventions initiated safety checks 15 Minute Checks Call wallace in reach , Call wallace in reach , Medications. Response: After interactions and interventions patient responded in the following manner, Calm , Wandering ,Compliant. Continue to assess behaviors and condition will continue to monitor throughout the shift as needed. Plan: Continue to monitor Master Treatment Plan for patient's progress toward short term goals of Decreased Agitation, Decreased Anxiety, prison goals to return to previous living setting vs placement. Continue to assess patient for changes in above assessment. Monitor for medication needs, pain, and safety concerns. Hourly rounding performed to ensure safe environment.
--- NOTE | 2016-12-07 14:00 | NUR ---
This nurse giving pt. her meds crushed in chen. pudding. Pt takes a tiny bite and begins to swat at this nurse. Redirected numerous times. Pt finally took all of her medications. Will continue to monitor and report.
[2016-12-07 16:35] VITALS: BP 134/73
--- NOTE | 2016-12-07 20:04 | PDOC ---
Exam Ty Demential Exam: Ty Note: Please also refer to the separate dictated note~for this date of service dictated separately.~Patient seen individually. Discussed the patient with Nursing staff reviewed the chart.~Reviewed interim history and current functioning. Reviewed vital signs,~Labs/ Radiology~and current medications noted below. Continue current treatment with the changes noted in the dictated addendum note Assessment: Vital Signs: Vital Signs Date Time Temp Pulse Resp B/P (MAP) Pulse Ox O2 Delivery O2 Flow Rate FiO2 12/07/16 16:35 99.3 90 20 134/73 (93) 96 Room Air I&O Intake and Output 12/07/16 07:00 Intake Total 255 ml Balance 255 ml Intake Oral 255 ml Labs: Laboratory Tests Test 12/07/16 07:12 White Blood Count 5.7 x10^3/uL (4.0-11.0) Red Blood Count 3.79 x10^6/uL (3.50-5.40) Hemoglobin 11.3 g/dL (12.0-15.5) L Hematocrit 34.6 % (36.0-47.0) L Mean Corpuscular Volume 91 fL (79-100) Mean Corpuscular Hemoglobin 30 pg (25-35) Mean Corpuscular Hemoglobin Concent 33 g/dL (31-37) Red Cell Distribution Width 15.0 % (11.5-14.5) H Platelet Count 200 x10^3/uL (140-400) Neutrophils (%) (Auto) 64 % (31-73) Lymphocytes (%) (Auto) 23 % (24-48) L Monocytes (%) (Auto) 10 % (0-9) H Eosinophils (%) (Auto) 2 % (0-3) Basophils (%) (Auto) 1 % (0-3) Neutrophils # (Auto) 3.6 x10^3uL (1.8-7.7) Lymphocytes # (Auto) 1.3 x10^3/uL (1.0-4.8) Monocytes # (Auto) 0.6 x10^3/uL (0.0-1.1) Eosinophils # (Auto) 0.1 x10^3/uL (0.0-0.7) Basophils # (Auto) 0.0 x10^3/uL (0.0-0.2) Sodium Level 144 mmol/L (136-145) Potassium Level 4.3 mmol/L (3.5-5.1) Chloride Level 107 mmol/L (98-107) Carbon Dioxide Level 30 mmol/L (21-32) Anion Gap 7 (6-14) Blood Urea Nitrogen 13 mg/dL (7-20) Creatinine 0.9 mg/dL (0.6-1.0) Estimated GFR (Cockcroft-Gault) 63.0 BUN/Creatinine Ratio 14 (6-20) Glucose Level 88 mg/dL (70-99) Calcium Level 8.8 mg/dL (8.5-10.1) Magnesium Level 2.3 mg/dL (1.8-2.4) Total Bilirubin 0.3 mg/dL (0.2-1.0) Aspartate Amino Transferase (AST) 13 U/L (15-37) L Alanine Aminotransferase (ALT) 11 U/L (14-59) L Alkaline Phosphatase 58 U/L (46-116) Total Protein 6.5 g/dL (6.4-8.2) Albumin 3.0 g/dL (3.4-5.0) L Albumin/Globulin Ratio 0.9 (1.0-1.7) L Valproic Acid Level 44 mcg/mL (50-100) L Valproic Acid Last Dose Date 12/06/2016 Valproic Acid Last Dose Time 2100 Current Medications: Meds: Current Medications Lorazepam (Ativan) 2 mg 1X ONCE IM Last administered on 11/24/16t 15:20; Start 11/24/16 at 15:30; Stop 11/24/16 at 15:31; Status DC Acetaminophen (Tylenol) 650 mg PRN Q6HRS PRN PO MILD PAIN / TEMP; Start at 23:30; Stop 11/28/16 at 18:00; Status DC Multi-Ingredient Ointment (Analgesic [place]) 1 nataly PRN QID PRN TP MUSCLE PAIN; Start 11/24/16 at 23:30 Al Hydroxide/Mg Hydroxide (Mylanta Plus Xs) 15 ml PRN AFTMEALHC PRN PO DYSPEPSIA; Start 11/24/16 at 23:30 Magnesium Hydroxide (Milk Of Magnesia) 2,400 mg PRN QHS PRN PO CONSTIPATION; Start 11/24/16 at 23:30 Nicotine (Nicoderm Cq 14mg) 1 patch DAILY TD Last administered on 12/03/16 08: 28; Start 11/25/16 at 09:00; Stop 12/03/16 at 15:46; Status DC Alprazolam (Xanax) 0.25 mg PRN Q8HRS PRN PO ANXIETY / AGITATION Last administered on 12/05/16 15:29; Start 11/25/16 at 00:45; Stop 12/05/16 at 18:42 ; Status DC Bupropion HCl (Wellbutrin Sr) 150 mg DAILY PO Last administered on 11/25/16 10 :53; Start 11/25/16 at 09:00; Stop 11/25/16 at 18:44; Status DC Divalproex Sodium (Depakote Sprinkles) 250 mg TID PO Last administered on 14:24; Start 11/25/16 at 09:00 Quetiapine Fumarate (SEROquel) 75 mg BID PO Last administered on 12/04/16 08: 02; Start 11/25/16 at 09:00; Stop 12/04/16 at 18:37; Status DC Trazodone HCl (Desyrel) 25 mg QHS PO Last administered on 11/25/16 20:44; Start 11/25/16 at 21:00; Stop 11/26/16 at 18:07; Status DC Melatonin 6 mg PRN QHS PRN PO INSOMNIA Last administered on 11/30/16 20:34; Start 11/25/16 at 01:00 Aspirin (Children'S Aspirin) 81 mg DAILY PO Last administered on 12/07/16 08: 14; Start 11/25/16 at 09:00 Atorvastatin Calcium (Lipitor) 10 mg QHS PO Last administered on 12/05/16 20: 12; Start 11/25/16 at 21:00 Ibuprofen (Motrin) 400 mg PRN Q4HRS PRN PO MODERATE PAIN Last administered on 23:32; Start 11/25/16 at 00:45 Multivitamins/ Calcium (Thera-M Plus) 1 tab DAILY PO Last administered on 08:13; Start 11/25/16 at 09:00 Senna/Docusate Sodium (Senna Plus) 2 tab BID PO Last administered on 12/07/16 08:14; Start 11/25/16 at 09:00 Tramadol HCl (Ultram) 50 mg PRN Q8HRS PRN PO MODERATE PAIN; Start 11/25/16 at 00:45 Vitamin D (Vitamin D3) 2,000 unit DAILY PO Last administered on 12/07/16 08:13 ; Start 11/25/16 at 09:00 Escitalopram Oxalate (Lexapro) 5 mg DAILY PO Last administered on 12/03/16 08: 09; Start 11/26/16 at 09:00; Stop 12/03/16 at 17:56; Status DC Mirtazapine (Remeron) 7.5 mg QHS PO Last administered on 11/29/16 21:11; Start 11/25/16 at 21:00; Stop 11/30/16 at 18:21; Status DC Trazodone HCl (Desyrel) 50 mg QHS PO Last administered on 11/29/16 21:11; Start 11/26/16 at 21:00; Stop 11/30/16 at 18:21; Status DC Acetaminophen (Tylenol) 650 mg [id number] PO Last administered on 12/07/16 18:06; Start 11/28/16 at 18:00 Benzocaine (Ora-Jel Maximum) 1 nataly PRN QID PRN TP ORAL PAIN; Start 11/28/16 at 17:15 Amoxicillin (Amoxil) 500 mg [id number] PO Last administered on 12/06/16 13:43; Start 11/28/16 at 21:00; Stop 12/06/16 at 23:00; Status DC Buspirone HCl (Buspar) 5 mg BID92 PO Last administered on 12/05/16 13:58; Start 11/29/16 at 09:00; Stop 12/05/16 at 18:35; Status DC Mirtazapine (Remeron) 15 mg QHS PO Last administered on 12/05/16 20:13; Start 11/30/16 at 21:00 Trazodone HCl (Desyrel) 100 mg QHS PO Last administered on 12/05/16 20:12; Start 11/30/16 at 21:00 Trazodone HCl (Desyrel) 100 mg PRN QHS PRN PO INSOMNIA; Start 11/30/16 at 18:30 Escitalopram Oxalate (Lexapro) 10 mg DAILY PO Last administered on 12/07/16 08 :14; Start 12/04/16 at 09:00 Nicotine (Nicoderm Cq 14mg) 1 patch DAILY TD Last administered on 12/07/16 08: 13; Start 12/04/16 at 15:00 Throat Lozenges (Chloraseptic) 1 spray PRN Q2HR PRN PO SORE THROAT Last administered on 12/05/16 13:56; Start 12/04/16 at 18:30 Quetiapine Fumarate (SEROquel) 25 mg 1400 PO Last administered on 12/07/16 14: 24; Start 12/05/16 at 14:00 Quetiapine Fumarate (SEROquel) 75 mg BIDACBL PO ; Start 12/05/16 at 07:30; Status UNV Quetiapine Fumarate (SEROquel) 75 mg 0900,1700 PO Last administered on 18:06; Start 12/05/16 at 09:00 Buspirone HCl (Buspar) 10 mg DAILY PO ; Start 12/06/16 at 09:00; Stop 12/06/16 at 09:00; Status DC Buspirone HCl (Buspar) 5 mg 1400 PO ; Start 12/06/16 at 14:00; Stop 12/06/16 at 14:00; Status DC Donepezil HCl (Aricept) 5 mg DAILY PO Last administered on 12/07/16 08:14; Start 12/06/16 at 09:00 Olanzapine (ZyPREXA ZYDIS) 2.5 mg PRN Q2HR PRN PO ANXIETY / AGITATION Last administered on 12/06/16 13:45; Start 12/05/16 at 18:45 Buspirone HCl (Buspar) 10 mg BID92 PO Last administered on 12/07/16 14:24; Start 12/06/16 at 09:00 Active Scripts Active Reported Bupropion Hcl Sr (Bupropion Hcl) 150 Mg Tablet.er 150 Mg PO DAILY Ibuprofen 400 Mg Tablet 400 Mg PO PRN Q4HRS PRN Tramadol Hcl (Tramadol HCl) 50 Mg Tablet 50 Mg PO PRN Q8HRS PRN Alprazolam 0.25 Mg Tablet 0.25 Mg PO PRN Q8HRS PRN Senna-Docusate Sodium Tablet (Sennosides/Docusate Sodium) 1 Each Tablet 2 Tab PO BID Depakote Sprinkle (Divalproex Sodium) 125 Mg Cap.sprink 250 Mg PO TID Trazodone Hcl 50 Mg Tablet 25 Mg PO QHS Melatonin 3 Mg Tablet 6 Mg PO QHS Atorvastatin Calcium 10 Mg Tablet 10 Mg PO QHS Vitamin D (Cholecalciferol (Vitamin D3)) 2,000 Unit Capsule 2,000 Unit PO DAILY Seroquel (Quetiapine Fumarate) 25 Mg Tablet 75 Mg PO BID Thera M Plus Tablet (Multivits,Ca,Minerals/Iron/FA) 1 Each Tablet 1 Tab PO DAILY Aspirin 81 Mg Tab.chew 81 Mg PO DAILY Diagnosis: Problems: (1) Anxiety disorder (2) Dementia with behavioral disturbance (3) Dementia in Alzheimer's disease with delusions (4) Dementia in Alzheimer's disease with depression (5) Dementia, vascular, with delusions (6) Dementia, vascular, with depression (7) Impulse control disorder HUNTER SCHROEDER MD Dec 07, 2016 20:04
[2016-12-07] MEDS: MIRTAZAPINE 15 MG TABLET PO SCH (20:13)
[2016-12-07] MEDS: traZODone 50 MG TABLET. PO SCH (20:13)
[2016-12-07] MEDS: ATORVASTATIN CALCIUM 10 MG TABLET. PO SCH (20:13)
--- NOTE | 2016-12-08 00:51 | NUR ---
Behavior Intervention Response and Plan: BIRP Note: Behavior: Assumed Care of patient, patient located in Hallway at shift change. Patient exhibited the following behavior Calm, Disorganized, Wandering. Brief assessment on rounds of vital signs, medication needs, lab studies, and pain. Treatment plan problems 1 and 2. Intervention: Patient assessed and the following interventions initiated safety checks 15 Minute Checks Cognitive Assessment , Head to toe Assessment , Medications. Response: After interactions and interventions patient responded in the following manner, Calm , Compliant ,Cooperative. Continue to assess behaviors and condition will continue to monitor throughout the shift as needed. Plan: Continue to monitor Master Treatment Plan for patient's progress toward short term goals of Decreased Agitation, Decreased Aggression, buttermaker continuous churn goals to return to previous living setting vs placement. Continue to assess patient for changes in above assessment. Monitor for medication needs, pain, and safety concerns. Hourly rounding performed to ensure safe environment.
[2016-12-08] MEDS: ACETAMINOPHEN 325 MG TABLET PO SCH ×2 (05:44→18:57)
[2016-12-08 06:00] VITALS: BP 97/56
--- NOTE | 2016-12-08 08:10 | NUR ---
Behavior Intervention Response and Plan: BIRP Note: Behavior: Assumed Care of patient, patient located in Dining Room at shift change. Patient exhibited the following behavior Wandering, Restless, Compliant. Brief assessment on rounds of vital signs, medication needs, lab studies, and pain. Treatment plan problems . Intervention: Patient assessed and the following interventions initiated safety checks 15 Minute Checks Cognitive Assessment , Head to toe Assessment , Medications. Response: After interactions and interventions patient responded in the following manner, Withdrawn , Disorganized ,Withdrawn. Continue to assess behaviors and condition will continue to monitor throughout the shift as needed. Plan: Continue to monitor Master Treatment Plan for patient's progress toward short term goals of Improved Mood, Medication Compliance, technician terminal and repeater goals to return to previous living setting vs placement. Continue to assess patient for changes in above assessment. Monitor for medication needs, pain, and safety concerns. Hourly rounding performed to ensure safe environment.
[2016-12-08] MEDS: ASPIRIN 81 MG TAB.CHEW PO SCH (08:20)
[2016-12-08] MEDS: CHOLECALCIFEROL (VITAMIN D3) 1,000 UNIT TABLET PO SCH (08:20)
[2016-12-08] MEDS: NICOTINE 14MG PATCH. TD SCH (08:20)
[2016-12-08] MEDS: ESCITALOPRAM 5 MG TABLET PO SCH (08:20)
[2016-12-08] MEDS: MULTIVITAMIN with MINERAL TABLET. PO SCH (08:21)
[2016-12-08] MEDS: DONEPEZIL HCL 5 MG TABLET. PO SCH (08:21)
[2016-12-08] MEDS: busPIRone 10 MG TABLET. PO SCH ×2 (08:21→14:31)
[2016-12-08] MEDS: QUEtiapine 25 MG TABLET. PO SCH ×3 (08:21→17:27)
[2016-12-08] MEDS: DIVALPROEX 125 MG CAP.SPRINK PO SCH ×3 (08:21→19:30)
[2016-12-08] MEDS: SENNOSIDES/DOCUSATE 8.6/50MG TABLET. PO SCH ×2 (08:21→19:31)
[2016-12-08 08:29] LABS: BILIRUBIN,URINE NEG (NEG); CLARITY,URINE CLEAR; COLOR,URINE YELLOW; GLUCOSE,URINE NEG (NEG); NITRITE,URINE NEG (NEG); UROBILINOGEN,URINE 0.2 mg/dL (0.2 mg/dL)
[2016-12-08 08:30] LABS: BACTERIA,URINE 0 /HPF (0-FEW); SQUAMOUS EPITHELIAL CELL,UR OCC /LPF
--- NOTE | 2016-12-08 14:57 | NUR ---
Patient has been compliant with all medications and assessments today. Patient is still wondering in and out of other patients rooms. Patient is alert to self only and cannot respond to questions appropriately.
[2016-12-08 15:36] VITALS: BP 166/91
[2016-12-08] MEDS: ATORVASTATIN CALCIUM 10 MG TABLET. PO SCH (19:30)
[2016-12-08] MEDS: MIRTAZAPINE 15 MG TABLET PO SCH (19:31)
[2016-12-08] MEDS: traZODone 50 MG TABLET. PO SCH (19:32)
--- NOTE | 2016-12-08 20:34 | PN ---
DATE: 12/07/2016 PSYCHIATRIC PROGRESS NOTE This is a late entry of 12/07/2016 covers elements not covered in my initial note. SUBJECTIVE: The patient remains confused urinated on the floor, agitated, aggressive, refused her medications, swatted at nursing staff's hand when there were administering her medications. She continues to ask her water. REVIEW OF SYSTEMS: No CV, , pulmonary, eye, ENT system symptoms on review. Reliability poor. MENTAL STATUS EXAM: Oriented to herself. Insight, judgment, recent and remote memory, attention, concentration, fund of knowledge poor, consistent with her diagnosis mentioned in my initial note. Major neurocognitive disorder, Alzheimer, vascular with delusion, depression, behavioral disturbance. Rest unchanged. PLAN: Continue psychotropics mentioned in my initial note, Depakote, Lexapro, Seroquel, which was adjusted, trazodone, Remeron, melatonin, BuSpar, Aricept, Zyprexa p.r.n. Adjust further as clinically indicated. We may be coming close to doing the most we can in the hospital and we may transition her back to snf early next week. HUNTER SCHROEDER MD DR: TONIA/ivan JOB#: [id number] / [id number]
--- NOTE | 2016-12-08 22:03 | PDOC ---
Exam Ty Demential Exam: Ty Note: Please also refer to the separate dictated note~for this date of service dictated separately.~Patient seen individually. Discussed the patient with Nursing staff reviewed the chart.~Reviewed interim history and current functioning. Reviewed vital signs,~Labs/ Radiology~and current medications noted below. Continue current treatment with the changes noted in the dictated addendum note Assessment: Vital Signs: Vital Signs Date Time Temp Pulse Resp B/P (MAP) Pulse Ox O2 Delivery O2 Flow Rate FiO2 12/08/16 15:36 99.4 72 21 166/91 (116) 98 12/07/16 16:35 Room Air I&O Intake and Output 12/08/16 07:00 Intake Total 240 ml Balance 240 ml Intake Oral 240 ml # Voids 1 # Bowel Movements 1 Labs: Laboratory Tests Test 12/08/16 07:30 Urine Collection Type Unknown Urine Color Yellow Urine Clarity Clear Urine pH 7.0 Urine Specific [place] 1.015 Urine Protein Neg (NEG-TRACE) Urine Glucose (UA) Neg mg/dL (NEG) Urine Ketones (Stick) 15 mg/dL (NEG) Urine Blood Neg (NEG) Urine Nitrite Neg (NEG) Urine Bilirubin Neg (NEG) Urine Urobilinogen Dipstick 0.2 mg/dL (0.2 mg/dL) Urine Leukocyte Esterase Neg (NEG) Urine RBC 1-2 /HPF (0-2) Urine WBC 1-4 /HPF (0-4) Urine Squamous Epithelial Cells Occ /LPF Urine Transitional Epithelial Cells Occ /LPF Urine Bacteria 0 /HPF (0-FEW) Current Medications: Meds: Current Medications Lorazepam (Ativan) 2 mg 1X ONCE IM Last administered on 11/24/16t 15:20; Start 11/24/16 at 15:30; Stop 11/24/16 at 15:31; Status DC Acetaminophen (Tylenol) 650 mg PRN Q6HRS PRN PO MILD PAIN / TEMP; Start at 23:30; Stop 11/28/16 at 18:00; Status DC Multi-Ingredient Ointment (Analgesic [place]) 1 nataly PRN QID PRN TP MUSCLE PAIN; Start 11/24/16 at 23:30 Al Hydroxide/Mg Hydroxide (Mylanta Plus Xs) 15 ml PRN AFTMEALHC PRN PO DYSPEPSIA; Start 11/24/16 at 23:30 Magnesium Hydroxide (Milk Of Magnesia) 2,400 mg PRN QHS PRN PO CONSTIPATION; Start 11/24/16 at 23:30 Nicotine (Nicoderm Cq 14mg) 1 patch DAILY TD Last administered on 12/03/16 08: 28; Start 11/25/16 at 09:00; Stop 12/03/16 at 15:46; Status DC Alprazolam (Xanax) 0.25 mg PRN Q8HRS PRN PO ANXIETY / AGITATION Last administered on 12/05/16 15:29; Start 11/25/16 at 00:45; Stop 12/05/16 at 18:42 ; Status DC Bupropion HCl (Wellbutrin Sr) 150 mg DAILY PO Last administered on 11/25/16 10 :53; Start 11/25/16 at 09:00; Stop 11/25/16 at 18:44; Status DC Divalproex Sodium (Depakote Sprinkles) 250 mg TID PO Last administered on 19:30; Start 11/25/16 at 09:00 Quetiapine Fumarate (SEROquel) 75 mg BID PO Last administered on 12/04/16 08: 02; Start 11/25/16 at 09:00; Stop 12/04/16 at 18:37; Status DC Trazodone HCl (Desyrel) 25 mg QHS PO Last administered on 11/25/16 20:44; Start 11/25/16 at 21:00; Stop 11/26/16 at 18:07; Status DC Melatonin 6 mg PRN QHS PRN PO INSOMNIA Last administered on 11/30/16 20:34; Start 11/25/16 at 01:00 Aspirin (Children'S Aspirin) 81 mg DAILY PO Last administered on 12/08/16 08: 20; Start 11/25/16 at 09:00 Atorvastatin Calcium (Lipitor) 10 mg QHS PO Last administered on 12/08/16 19: 30; Start 11/25/16 at 21:00 Ibuprofen (Motrin) 400 mg PRN Q4HRS PRN PO MODERATE PAIN Last administered on 23:32; Start 11/25/16 at 00:45 Multivitamins/ Calcium (Thera-M Plus) 1 tab DAILY PO Last administered on 08:21; Start 11/25/16 at 09:00 Senna/Docusate Sodium (Senna Plus) 2 tab BID PO Last administered on 12/08/16 19:31; Start 11/25/16 at 09:00 Tramadol HCl (Ultram) 50 mg PRN Q8HRS PRN PO MODERATE PAIN; Start 11/25/16 at 00:45 Vitamin D (Vitamin D3) 2,000 unit DAILY PO Last administered on 12/08/16 08:20 ; Start 11/25/16 at 09:00 Escitalopram Oxalate (Lexapro) 5 mg DAILY PO Last administered on 12/03/16 08: 09; Start 11/26/16 at 09:00; Stop 12/03/16 at 17:56; Status DC Mirtazapine (Remeron) 7.5 mg QHS PO Last administered on 11/29/16 21:11; Start 11/25/16 at 21:00; Stop 11/30/16 at 18:21; Status DC Trazodone HCl (Desyrel) 50 mg QHS PO Last administered on 11/29/16 21:11; Start 11/26/16 at 21:00; Stop 11/30/16 at 18:21; Status DC Acetaminophen (Tylenol) 650 mg [id number] PO Last administered on 12/08/16 18:57; Start 11/28/16 at 18:00 Benzocaine (Ora-Jel Maximum) 1 nataly PRN QID PRN TP ORAL PAIN; Start 11/28/16 at 17:15 Amoxicillin (Amoxil) 500 mg [id number] PO Last administered on 12/06/16 13:43; Start 11/28/16 at 21:00; Stop 12/06/16 at 23:00; Status DC Buspirone HCl (Buspar) 5 mg [id number] PO Last administered on 12/05/16 13:58; Start 11/29/16 at 09:00; Stop 12/05/16 at 18:35; Status DC Mirtazapine (Remeron) 15 mg QHS PO Last administered on 12/08/16 19:31; Start 11/30/16 at 21:00 Trazodone HCl (Desyrel) 100 mg QHS PO Last administered on 12/08/16 19:32; Start 11/30/16 at 21:00 Trazodone HCl (Desyrel) 100 mg PRN QHS PRN PO INSOMNIA; Start 11/30/16 at 18:30 Escitalopram Oxalate (Lexapro) 10 mg DAILY PO Last administered on 12/08/16 08 :20; Start 12/04/16 at 09:00 Nicotine (Nicoderm Cq 14mg) 1 patch DAILY TD Last administered on 12/08/16 08: 20; Start 12/04/16 at 15:00 Throat Lozenges (Chloraseptic) 1 spray PRN Q2HR PRN PO SORE THROAT Last administered on 12/05/16 13:56; Start 12/04/16 at 18:30 Quetiapine Fumarate (SEROquel) 25 mg 1400 PO Last administered on 12/08/16 14: 32; Start 12/05/16 at 14:00 Quetiapine Fumarate (SEROquel) 75 mg BIDACBL PO ; Start 12/05/16 at 07:30; Status UNV Quetiapine Fumarate (SEROquel) 75 mg 0900,1700 PO Last administered on 17:27; Start 12/05/16 at 09:00 Buspirone HCl (Buspar) 10 mg DAILY PO ; Start 12/06/16 at 09:00; Stop 12/06/16 at 09:00; Status DC Buspirone HCl (Buspar) 5 mg 1400 PO ; Start 12/06/16 at 14:00; Stop 12/06/16 at 14:00; Status DC Donepezil HCl (Aricept) 5 mg DAILY PO Last administered on 12/08/16 08:21; Start 12/06/16 at 09:00 Olanzapine (ZyPREXA ZYDIS) 2.5 mg PRN Q2HR PRN PO ANXIETY / AGITATION Last administered on 12/06/16 13:45; Start 12/05/16 at 18:45 Buspirone HCl (Buspar) 10 mg [id number] PO Last administered on 12/08/16 14:31; Start 12/06/16 at 09:00 Active Scripts Active Reported Bupropion Hcl Sr (Bupropion Hcl) 150 Mg Tablet.er 150 Mg PO DAILY Ibuprofen 400 Mg Tablet 400 Mg PO PRN Q4HRS PRN Tramadol Hcl (Tramadol HCl) 50 Mg Tablet 50 Mg PO PRN Q8HRS PRN Alprazolam 0.25 Mg Tablet 0.25 Mg PO PRN Q8HRS PRN Senna-Docusate Sodium Tablet (Sennosides/Docusate Sodium) 1 Each Tablet 2 Tab PO BID Depakote Sprinkle (Divalproex Sodium) 125 Mg Cap.sprink 250 Mg PO TID Trazodone Hcl 50 Mg Tablet 25 Mg PO QHS Melatonin 3 Mg Tablet 6 Mg PO QHS Atorvastatin Calcium 10 Mg Tablet 10 Mg PO QHS Vitamin D (Cholecalciferol (Vitamin D3)) 2,000 Unit Capsule 2,000 Unit PO DAILY Seroquel (Quetiapine Fumarate) 25 Mg Tablet 75 Mg PO BID Thera M Plus Tablet (Multivits,Ca,Minerals/Iron/FA) 1 Each Tablet 1 Tab PO DAILY Aspirin 81 Mg Tab.chew 81 Mg PO DAILY Diagnosis: Problems: (1) Anxiety disorder (2) Dementia with behavioral disturbance (3) Dementia in Alzheimer's disease with delusions (4) Dementia in Alzheimer's disease with depression (5) Dementia, vascular, with delusions (6) Dementia, vascular, with depression (7) Impulse control disorder HUNTER SCHROEDER MD Dec 08, 2016 22:03
[2016-12-09 05:57] VITALS: BP 122/70
[2016-12-09] MEDS: ACETAMINOPHEN 325 MG TABLET PO SCH ×2 (05:57→17:16)
[2016-12-09] MEDS: PHENOL ORAL SPRAY 177ML BOTTLE. PO PRN (06:03)
[2016-12-09] MEDS: SENNOSIDES/DOCUSATE 8.6/50MG TABLET. PO SCH ×2 (08:14→20:39)
[2016-12-09] MEDS: ESCITALOPRAM 5 MG TABLET PO SCH (08:14)
[2016-12-09] MEDS: busPIRone 10 MG TABLET. PO SCH ×2 (08:15→14:34)
[2016-12-09] MEDS: DIVALPROEX 125 MG CAP.SPRINK PO SCH ×3 (08:15→20:41)
[2016-12-09] MEDS: ASPIRIN 81 MG TAB.CHEW PO SCH (08:15)
[2016-12-09] MEDS: MULTIVITAMIN with MINERAL TABLET. PO SCH (08:15)
[2016-12-09] MEDS: QUEtiapine 25 MG TABLET. PO SCH ×3 (08:15→17:16)
[2016-12-09] MEDS: CHOLECALCIFEROL (VITAMIN D3) 1,000 UNIT TABLET PO SCH (08:15)
[2016-12-09] MEDS: DONEPEZIL HCL 5 MG TABLET. PO SCH (08:15)
[2016-12-09] MEDS: NICOTINE 14MG PATCH. TD SCH (08:16)
--- NOTE | 2016-12-09 11:42 | NUR ---
Behavior Intervention Response and Plan: BIRP Note: Behavior: Assumed Care of patient, patient located in Dining Room at shift change. Patient exhibited the following behavior Disorganized, Somatic, Calm. Brief assessment on rounds of vital signs, medication needs, lab studies, and pain. Treatment plan problems . Intervention: Patient assessed and the following interventions initiated safety checks 15 Minute Checks Cognitive Assessment , Head to toe Assessment , Medications. Response: After interactions and interventions patient responded in the following manner, Wandering , Disorganized ,Calm. Continue to assess behaviors and condition will continue to monitor throughout the shift as needed. Plan: Continue to monitor Master Treatment Plan for patient's progress toward short term goals of Decreased Agitation, Decreased Aggression, usp goals to return to previous living setting vs placement. Continue to assess patient for changes in above assessment. Monitor for medication needs, pain, and safety concerns. Hourly rounding performed to ensure safe environment.
[2016-12-09 15:48] VITALS: BP 168/65
--- NOTE | 2016-12-09 16:01 | NUR ---
Patient has been wandering aimlessly most of the day, stating "please help me" over and over and beginning to make other patients agitated with her intrusiveness. Patient has been toileted, attempted to redirect several times. She has several somatic complaints, but is very disorganized. PRN manuela and ultram given, will continue to monitor.
[2016-12-09] MEDS: ATORVASTATIN CALCIUM 10 MG TABLET. PO SCH (20:39)
[2016-12-09] MEDS: MIRTAZAPINE 15 MG TABLET PO SCH (20:39)
[2016-12-09] MEDS: traZODone 50 MG TABLET. PO SCH (20:39)
--- NOTE | 2016-12-09 21:14 | PDOC ---
Exam Ty Demential Exam: Ty Note: Please also refer to the separate dictated note~for this date of service dictated separately.~Patient seen individually. Discussed the patient with Nursing staff reviewed the chart.~Reviewed interim history and current functioning. Reviewed vital signs,~Labs/ Radiology~and current medications noted below. Continue current treatment with the changes noted in the dictated addendum note Assessment: Vital Signs: Vital Signs Date Time Temp Pulse Resp B/P (MAP) Pulse Ox O2 Delivery O2 Flow Rate FiO2 12/09/16 15:48 99.6 65 18 168/65 (99) 12/09/16 05:57 92 12/07/16 16:35 Room Air I&O Intake and Output 12/09/16 07:00 Intake Total 840 ml Balance 840 ml Intake Oral 840 ml # Voids 1 Current Medications: Meds: Current Medications Lorazepam (Ativan) 2 mg 1X ONCE IM Last administered on 11/24/16 15:20; Start 11/24/16 at 15:30; Stop 11/24/16 at 15:31; Status DC Acetaminophen (Tylenol) 650 mg PRN Q6HRS PRN PO MILD PAIN / TEMP; Start at 23:30; Stop 11/28/16 at 18:00; Status DC Multi-Ingredient Ointment (Analgesic [place]) 1 nataly PRN QID PRN TP MUSCLE PAIN; Start 11/24/16 at 23:30 Al Hydroxide/Mg Hydroxide (Mylanta Plus Xs) 15 ml PRN AFTMEALHC PRN PO DYSPEPSIA; Start 11/24/16 at 23:30 Magnesium Hydroxide (Milk Of Magnesia) 2,400 mg PRN QHS PRN PO CONSTIPATION; Start 11/24/16 at 23:30 Nicotine (Nicoderm Cq 14mg) 1 patch DAILY TD Last administered on 12/03/16 08: 28; Start 11/25/16 at 09:00; Stop 12/03/16 at 15:46; Status DC Alprazolam (Xanax) 0.25 mg PRN Q8HRS PRN PO ANXIETY / AGITATION Last administered on 12/05/16 15:29; Start 11/25/16 at 00:45; Stop 12/05/16 at 18:42 ; Status DC Bupropion HCl (Wellbutrin Sr) 150 mg DAILY PO Last administered on 11/25/16 10 :53; Start 11/25/16 at 09:00; Stop 11/25/16 at 18:44; Status DC Divalproex Sodium (Depakote Sprinkles) 250 mg TID PO Last administered on 20:41; Start 11/25/16 at 09:00 Quetiapine Fumarate (SEROquel) 75 mg BID PO Last administered on 12/04/16 08: 02; Start 11/25/16 at 09:00; Stop 12/04/16 at 18:37; Status DC Trazodone HCl (Desyrel) 25 mg QHS PO Last administered on 11/25/16 20:44; Start 11/25/16 at 21:00; Stop 11/26/16 at 18:07; Status DC Melatonin 6 mg PRN QHS PRN PO INSOMNIA Last administered on 11/30/16 20:34; Start 11/25/16 at 01:00 Aspirin (Children'S Aspirin) 81 mg DAILY PO Last administered on 12/09/16 08: 15; Start 11/25/16 at 09:00 Atorvastatin Calcium (Lipitor) 10 mg QHS PO Last administered on 12/09/16 20: 39; Start 11/25/16 at 21:00 Ibuprofen (Motrin) 400 mg PRN Q4HRS PRN PO MODERATE PAIN Last administered on 23:32; Start 11/25/16 at 00:45 Multivitamins/ Calcium (Thera-M Plus) 1 tab DAILY PO Last administered on 08:15; Start 11/25/16 at 09:00 Senna/Docusate Sodium (Senna Plus) 2 tab BID PO Last administered on 12/09/16 20:39; Start 11/25/16 at 09:00 Tramadol HCl (Ultram) 50 mg PRN Q8HRS PRN PO MODERATE PAIN Last administered on 12/09/16 15:53; Start 11/25/16 at 00:45 Vitamin D (Vitamin D3) 2,000 unit DAILY PO Last administered on 12/09/16 08:15 ; Start 11/25/16 at 09:00 Escitalopram Oxalate (Lexapro) 5 mg DAILY PO Last administered on 12/03/16 08: 09; Start 11/26/16 at 09:00; Stop 12/03/16 at 17:56; Status DC Mirtazapine (Remeron) 7.5 mg QHS PO Last administered on 11/29/16 21:11; Start 11/25/16 at 21:00; Stop 11/30/16 at 18:21; Status DC Trazodone HCl (Desyrel) 50 mg QHS PO Last administered on 11/29/16 21:11; Start 11/26/16 at 21:00; Stop 11/30/16 at 18:21; Status DC Acetaminophen (Tylenol) 650 mg [id number] PO Last administered on 12/09/16 17:16; Start 11/28/16 at 18:00 Benzocaine (Ora-Jel Maximum) 1 nataly PRN QID PRN TP ORAL PAIN; Start 11/28/16 at 17:15 Amoxicillin (Amoxil) 500 mg [id number] PO Last administered on 12/06/16 13:43; Start 11/28/16 at 21:00; Stop 12/06/16 at 23:00; Status DC Buspirone HCl (Buspar) 5 mg BID92 PO Last administered on 12/05/16 13:58; Start 11/29/16 at 09:00; Stop 12/05/16 at 18:35; Status DC Mirtazapine (Remeron) 15 mg QHS PO Last administered on 12/09/16 20:39; Start 11/30/16 at 21:00 Trazodone HCl (Desyrel) 100 mg QHS PO Last administered on 12/09/16 20:39; Start 11/30/16 at 21:00 Trazodone HCl (Desyrel) 100 mg PRN QHS PRN PO INSOMNIA; Start 11/30/16 at 18:30 Escitalopram Oxalate (Lexapro) 10 mg DAILY PO Last administered on 12/09/16 08 :14; Start 12/04/16 at 09:00 Nicotine (Nicoderm Cq 14mg) 1 patch DAILY TD Last administered on 12/09/16 08: 16; Start 12/04/16 at 15:00 Throat Lozenges (Chloraseptic) 1 spray PRN Q2HR PRN PO SORE THROAT Last administered on 12/09/16 06:03; Start 12/04/16 at 18:30 Quetiapine Fumarate (SEROquel) 25 mg 1400 PO Last administered on 12/09/16 14: 34; Start 12/05/16 at 14:00 Quetiapine Fumarate (SEROquel) 75 mg BIDACBL PO ; Start 12/05/16 at 07:30; Status UNV Quetiapine Fumarate (SEROquel) 75 mg 0900,1700 PO Last administered on 17:16; Start 12/05/16 at 09:00 Buspirone HCl (Buspar) 10 mg DAILY PO ; Start 12/06/16 at 09:00; Stop 12/06/16 at 09:00; Status DC Buspirone HCl (Buspar) 5 mg 1400 PO ; Start 12/06/16 at 14:00; Stop 12/06/16 at 14:00; Status DC Donepezil HCl (Aricept) 5 mg DAILY PO Last administered on 12/09/16 08:15; Start 12/06/16 at 09:00 Olanzapine (ZyPREXA ZYDIS) 2.5 mg PRN Q2HR PRN PO ANXIETY / AGITATION Last administered on 12/09/16 15:53; Start 12/05/16 at 18:45 Buspirone HCl (Buspar) 10 mg BID92 PO Last administered on 12/09/16 14:34; Start 12/06/16 at 09:00 Active Scripts Active Reported Bupropion Hcl Sr (Bupropion Hcl) 150 Mg Tablet.er 150 Mg PO DAILY Ibuprofen 400 Mg Tablet 400 Mg PO PRN Q4HRS PRN Tramadol Hcl (Tramadol HCl) 50 Mg Tablet 50 Mg PO PRN Q8HRS PRN Alprazolam 0.25 Mg Tablet 0.25 Mg PO PRN Q8HRS PRN Senna-Docusate Sodium Tablet (Sennosides/Docusate Sodium) 1 Each Tablet 2 Tab PO BID Depakote Sprinkle (Divalproex Sodium) 125 Mg Cap.sprink 250 Mg PO TID Trazodone Hcl 50 Mg Tablet 25 Mg PO QHS Melatonin 3 Mg Tablet 6 Mg PO QHS Atorvastatin Calcium 10 Mg Tablet 10 Mg PO QHS Vitamin D (Cholecalciferol (Vitamin D3)) 2,000 Unit Capsule 2,000 Unit PO DAILY Seroquel (Quetiapine Fumarate) 25 Mg Tablet 75 Mg PO BID Thera M Plus Tablet (Multivits,Ca,Minerals/Iron/FA) 1 Each Tablet 1 Tab PO DAILY Aspirin 81 Mg Tab.chew 81 Mg PO DAILY Diagnosis: Problems: (1) Anxiety disorder (2) Dementia with behavioral disturbance (3) Dementia in Alzheimer's disease with delusions (4) Dementia in Alzheimer's disease with depression (5) Dementia, vascular, with delusions (6) Dementia, vascular, with depression (7) Impulse control disorder HUNTER SCHROEDER MD Dec 09, 2016 21:14
--- NOTE | 2016-12-09 21:15 | NUR ---
Behavior Intervention Response and Plan: BIRP Note: Behavior: Assumed Care of patient, patient located in Day Room at shift change. Patient exhibited the following behavior Disorganized, Somatic, Wandering. Brief assessment on rounds of vital signs, medication needs, lab studies, and pain. Treatment plan problems: 1-2 . Intervention: Patient assessed and the following interventions initiated safety checks 15 Minute Checks Cognitive Assessment , Head to toe Assessment , Medications, Oral Hydration, Nutrition. Response: After interactions and interventions patient responded in the following manner, Cooperative, Compliant, Disorganized ,Calm. Continue to assess behaviors and condition will continue to monitor throughout the shift as needed. Plan: Continue to monitor Master Treatment Plan for patient's progress toward short term goals of Decreased Agitation, Decreased Aggression, longterm goals to return to previous living setting vs placement. Continue to assess patient for changes in above assessment. Monitor for medication needs, pain, and safety concerns. Hourly rounding performed to ensure safe environment.
--- NOTE | 2016-12-10 01:58 | PN ---
DATE: 12/09/2016 SUBJECTIVE: The patient was seen individually, discussed with nursing staff, reviewed the chart. This note covers the elements not covered in my other note from today. Per nursing report, the patient remains disorganized, takes her medications in boost, has been wandering, anxious, redirectable. REVIEW OF SYSTEMS: No CV, , eye, ENT or pulmonary system symptoms on review. Reliability poor. MENTAL STATUS EXAM: Oriented to herself. Insight, judgment, recent and remote memory, attention, concentration, fund of knowledge poor, consistent with her diagnosis. She has not been aggressive or throwing things, which has what prompted this hospitalization. LABORATORY DATA: Reviewed. IMPRESSION: Major neurocognitive disorder, Alzheimer, vascular with depression, delusion and behavioral disturbance. Rest unchanged. PLAN: Continue psychotropics mentioned in my initial note, reviewed drug interaction, risk, benefit ratio favors further adjustments depending on her progress. MAN Panchito SCHROEDER MD DR: TONIA/ivan JOB#: [id number] / [id number]
--- NOTE | 2016-12-10 03:05 | PN ---
DATE: 12/08/2016 PSYCHIATRIC PROGRESS NOTE This note covers elements not covered in my initial note of 12/08/2016. SUBJECTIVE: The patient slept 7-1/2 hours last night. Per nursing report, she is compliant with taking her medications, confused, walking up and down the hallway. UA completed, results awaited. REVIEW OF SYSTEMS: No CV, , pulmonary, eye, ENT system symptoms on review. Reliability poor. MENTAL STATUS EXAMINATION: Oriented to herself. Insight, judgment, recent and remote memory, attention, concentration, and fund of knowledge poor, consistent with her diagnosis mentioned in my initial note. PLAN: Continue current psychotropics. Adjust further as clinically indicated. MAN Panchito SCHROEDER MD DR: TONIA/ivan JOB#: [id number] / [id number]
[2016-12-10] MEDS: ACETAMINOPHEN 325 MG TABLET PO SCH ×2 (05:04→17:34)
[2016-12-10 05:48] VITALS: BP 121/70
--- NOTE | 2016-12-10 09:40 | PN ---
DATE: 12/06/2016 PSYCHIATRIC PROGRESS NOTE This is a late entry for 12/06/2016, covers elements not covered in my initial note. SUBJECTIVE: The patient was staffed at a treatment team meeting with the entire team morning of 12/06/2016, seen individually evening of 12/06/2016. Appetite 60%, sleeping about 5-1/2 hours average, crying, irritable, restless, spit out at bedtime medications, received Zyprexa p.r.n. 1345 with little benefit. REVIEW OF SYSTEMS: No CV, , pulmonary, eye, ENT system symptoms on review. Reliability poor. MENTAL STATUS EXAM: Oriented to herself. Insight, judgment, recent and remote memory, attention, concentration, fund of knowledge poor, consistent with her diagnosis mentioned in my initial note. Valproic acid level is 65. IMPRESSION: Major neurocognitive disorder, Alzheimer, vascular with depression, delusions and behavioral disturbance. Rest unchanged. PLAN: Continue psychotropics mentioned in my initial note including Zyprexa p.r.n., Depakote, Lexapro, Seroquel, trazodone, Remeron, melatonin, BuSpar, and Aricept. Adjust further as clinically indicated. HUNTER SCHROEDER MD DR: TONIA/ivan JOB#: [id number] / [id number]
[2016-12-10] MEDS: CHOLECALCIFEROL (VITAMIN D3) 1,000 UNIT TABLET PO SCH (10:41)
[2016-12-10] MEDS: NICOTINE 14MG PATCH. TD SCH (10:41)
[2016-12-10] MEDS: DONEPEZIL HCL 5 MG TABLET. PO SCH (10:41)
[2016-12-10] MEDS: ASPIRIN 81 MG TAB.CHEW PO SCH (10:41)
[2016-12-10] MEDS: DIVALPROEX 125 MG CAP.SPRINK PO SCH ×3 (10:41→19:56)
[2016-12-10] MEDS: busPIRone 10 MG TABLET. PO SCH ×2 (10:44→15:32)
[2016-12-10] MEDS: QUEtiapine 25 MG TABLET. PO SCH ×3 (10:44→17:35)
[2016-12-10] MEDS: SENNOSIDES/DOCUSATE 8.6/50MG TABLET. PO SCH ×2 (10:44→19:57)
[2016-12-10] MEDS: ESCITALOPRAM 5 MG TABLET PO SCH (10:44)
[2016-12-10] MEDS: MULTIVITAMIN with MINERAL TABLET. PO SCH (10:44)
--- NOTE | 2016-12-10 11:28 | NUR ---
Behavior Intervention Response and Plan: BIRP Note: Behavior: Assumed Care of patient, patient located in Day Room at shift change. Patient exhibited the following behavior Wandering, Disorganized, Anxious. Brief assessment on rounds of vital signs, medication needs, lab studies, and pain. Treatment plan problems 1-2. Intervention: Patient assessed and the following interventions initiated safety checks 15 Minute Checks Cognitive Assessment , Head to toe Assessment , Medications. Response: After interactions and interventions patient responded in the following manner, Disorganized , Wandering ,Anxious. Continue to assess behaviors and condition will continue to monitor throughout the shift as needed. 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 Continue to assess patient for changes in above assessment. Monitor for medication needs, pain, and safety concerns. Hourly rounding performed to ensure safe environment.
--- NOTE | 2016-12-10 11:33 | NUR ---
Pt has been wandering and becoming increasingly anxious. PRN Zydis administered. Will continue to monitor.
[2016-12-10 16:28] VITALS: BP 112/84
[2016-12-10] MEDS: ATORVASTATIN CALCIUM 10 MG TABLET. PO SCH (19:56)
[2016-12-10] MEDS: MIRTAZAPINE 30 MG TABLET PO SCH (19:58)
--- NOTE | 2016-12-10 20:17 | PDOC ---
Exam Ty Demential Exam: Ty Note: Please also refer to the separate dictated note~for this date of service dictated separately.~Patient seen individually. Discussed the patient with Nursing staff reviewed the chart.~Reviewed interim history and current functioning. Reviewed vital signs,~Labs/ Radiology~and current medications noted below. Continue current treatment with the changes noted in the dictated addendum note Assessment: Vital Signs: Vital Signs Date Time Temp Pulse Resp B/P (MAP) Pulse Ox O2 Delivery O2 Flow Rate FiO2 12/10/16 16:28 97.9 82 24 112/84 (93) 93 Room Air I&O Intake and Output 12/10/16 07:00 Intake Total 480 ml Balance 480 ml Intake Oral 480 ml Current Medications: Meds: Current Medications Lorazepam (Ativan) 2 mg 1X ONCE IM Last administered on 11/24/16 15:20; Start 11/24/16 at 15:30; Stop 11/24/16 at 15:31; Status DC Acetaminophen (Tylenol) 650 mg PRN Q6HRS PRN PO MILD PAIN / TEMP; Start at 23:30; Stop 11/28/16 at 18:00; Status DC Multi-Ingredient Ointment (Analgesic [place]) 1 nataly PRN QID PRN TP MUSCLE PAIN; Start 11/24/16 at 23:30 Al Hydroxide/Mg Hydroxide (Mylanta Plus Xs) 15 ml PRN AFTMEALHC PRN PO DYSPEPSIA; Start 11/24/16 at 23:30 Magnesium Hydroxide (Milk Of Magnesia) 2,400 mg PRN QHS PRN PO CONSTIPATION; Start 11/24/16 at 23:30 Nicotine (Nicoderm Cq 14mg) 1 patch DAILY TD Last administered on 12/03/16 08: 28; Start 11/25/16 at 09:00; Stop 12/03/16 at 15:46; Status DC Alprazolam (Xanax) 0.25 mg PRN Q8HRS PRN PO ANXIETY / AGITATION Last administered on 12/05/16 15:29; Start 11/25/16 at 00:45; Stop 12/05/16 at 18:42 ; Status DC Bupropion HCl (Wellbutrin Sr) 150 mg DAILY PO Last administered on 11/25/16 10 :53; Start 11/25/16 at 09:00; Stop 11/25/16 at 18:44; Status DC Divalproex Sodium (Depakote Sprinkles) 250 mg TID PO Last administered on 19:56; Start 11/25/16 at 09:00 Quetiapine Fumarate (SEROquel) 75 mg BID PO Last administered on 12/04/16 08: 02; Start 11/25/16 at 09:00; Stop 12/04/16 at 18:37; Status DC Trazodone HCl (Desyrel) 25 mg QHS PO Last administered on 11/25/16 20:44; Start 11/25/16 at 21:00; Stop 11/26/16 at 18:07; Status DC Melatonin 6 mg PRN QHS PRN PO INSOMNIA Last administered on 11/30/16 20:34; Start 11/25/16 at 01:00 Aspirin (Children'S Aspirin) 81 mg DAILY PO Last administered on 12/10/16 10: 41; Start 11/25/16 at 09:00 Atorvastatin Calcium (Lipitor) 10 mg QHS PO Last administered on 12/10/16 19: 56; Start 11/25/16 at 21:00 Ibuprofen (Motrin) 400 mg PRN Q4HRS PRN PO MODERATE PAIN Last administered on 23:32; Start 11/25/16 at 00:45 Multivitamins/ Calcium (Thera-M Plus) 1 tab DAILY PO Last administered on 10:44; Start 11/25/16 at 09:00 Senna/Docusate Sodium (Senna Plus) 2 tab BID PO Last administered on 12/10/16 19:57; Start 11/25/16 at 09:00 Tramadol HCl (Ultram) 50 mg PRN Q8HRS PRN PO MODERATE PAIN Last administered on 12/09/16 15:53; Start 11/25/16 at 00:45 Vitamin D (Vitamin D3) 2,000 unit DAILY PO Last administered on 12/10/16 10:41 ; Start 11/25/16 at 09:00 Escitalopram Oxalate (Lexapro) 5 mg DAILY PO Last administered on 12/03/16 08: 09; Start 11/26/16 at 09:00; Stop 12/03/16 at 17:56; Status DC Mirtazapine (Remeron) 7.5 mg QHS PO Last administered on 11/29/16 21:11; Start 11/25/16 at 21:00; Stop 11/30/16 at 18:21; Status DC Trazodone HCl (Desyrel) 50 mg QHS PO Last administered on 11/29/16 21:11; Start 11/26/16 at 21:00; Stop 11/30/16 at 18:21; Status DC Acetaminophen (Tylenol) 650 mg [id number] PO Last administered on 12/10/16 17:34; Start 11/28/16 at 18:00 Benzocaine (Ora-Jel Maximum) 1 nataly PRN QID PRN TP ORAL PAIN; Start 11/28/16 at 17:15 Amoxicillin (Amoxil) 500 mg [id number] PO Last administered on 12/06/16 13:43; Start 11/28/16 at 21:00; Stop 12/06/16 at 23:00; Status DC Buspirone HCl (Buspar) 5 mg BID92 PO Last administered on 12/05/16 13:58; Start 11/29/16 at 09:00; Stop 12/05/16 at 18:35; Status DC Mirtazapine (Remeron) 15 mg QHS PO Last administered on 12/09/16 20:39; Start 11/30/16 at 21:00; Stop 12/10/16 at 15:30; Status DC Trazodone HCl (Desyrel) 100 mg QHS PO Last administered on 12/09/16 20:39; Start 11/30/16 at 21:00; Stop 12/10/16 at 15:30; Status DC Trazodone HCl (Desyrel) 100 mg PRN QHS PRN PO INSOMNIA; Start 11/30/16 at 18:30 ; Stop 12/10/16 at 15:30; Status DC Escitalopram Oxalate (Lexapro) 10 mg DAILY PO Last administered on 12/10/16 10 :44; Start 12/04/16 at 09:00 Nicotine (Nicoderm Cq 14mg) 1 patch DAILY TD Last administered on 12/10/16 10: 41; Start 12/04/16 at 15:00 Throat Lozenges (Chloraseptic) 1 spray PRN Q2HR PRN PO SORE THROAT Last administered on 12/09/16 06:03; Start 12/04/16 at 18:30 Quetiapine Fumarate (SEROquel) 25 mg 1400 PO Last administered on 12/10/16 15: 32; Start 12/05/16 at 14:00 Quetiapine Fumarate (SEROquel) 75 mg BIDACBL PO ; Start 12/05/16 at 07:30; Status UNV Quetiapine Fumarate (SEROquel) 75 mg 0900,1700 PO Last administered on 17:35; Start 12/05/16 at 09:00 Buspirone HCl (Buspar) 10 mg DAILY PO ; Start 12/06/16 at 09:00; Stop 12/06/16 at 09:00; Status DC Buspirone HCl (Buspar) 5 mg 1400 PO ; Start 12/06/16 at 14:00; Stop 12/06/16 at 14:00; Status DC Donepezil HCl (Aricept) 5 mg DAILY PO Last administered on 12/10/16 10:41; Start 12/06/16 at 09:00 Olanzapine (ZyPREXA ZYDIS) 2.5 mg PRN Q2HR PRN PO ANXIETY / AGITATION Last administered on 12/10/16 11:30; Start 12/05/16 at 18:45 Buspirone HCl (Buspar) 10 mg [id number] PO Last administered on 12/10/16 15:32; Start 12/06/16 at 09:00 Mirtazapine (Remeron) 30 mg QHS PO Last administered on 12/10/16 19:58; Start 12/10/16 at 21:00 Active Scripts Active Reported Bupropion Hcl Sr (Bupropion Hcl) 150 Mg Tablet.er 150 Mg PO DAILY Ibuprofen 400 Mg Tablet 400 Mg PO PRN Q4HRS PRN Tramadol Hcl (Tramadol HCl) 50 Mg Tablet 50 Mg PO PRN Q8HRS PRN Alprazolam 0.25 Mg Tablet 0.25 Mg PO PRN Q8HRS PRN Senna-Docusate Sodium Tablet (Sennosides/Docusate Sodium) 1 Each Tablet 2 Tab PO BID Depakote Sprinkle (Divalproex Sodium) 125 Mg Cap.sprink 250 Mg PO TID Trazodone Hcl 50 Mg Tablet 25 Mg PO QHS Melatonin 3 Mg Tablet 6 Mg PO QHS Atorvastatin Calcium 10 Mg Tablet 10 Mg PO QHS Vitamin D (Cholecalciferol (Vitamin D3)) 2,000 Unit Capsule 2,000 Unit PO DAILY Seroquel (Quetiapine Fumarate) 25 Mg Tablet 75 Mg PO BID Thera M Plus Tablet (Multivits,Ca,Minerals/Iron/FA) 1 Each Tablet 1 Tab PO DAILY Aspirin 81 Mg Tab.chew 81 Mg PO DAILY Diagnosis: Problems: (1) Anxiety disorder (2) Dementia with behavioral disturbance (3) Dementia in Alzheimer's disease with delusions (4) Dementia in Alzheimer's disease with depression (5) Dementia, vascular, with delusions (6) Dementia, vascular, with depression (7) Impulse control disorder HUNTER SCHROEDER MD Dec 10, 2016 20:17
--- NOTE | 2016-12-10 22:30 | NUR ---
Behavior Intervention Response and Plan: BIRP Note: Behavior: Assumed Care of patient, patient located in Patient Room at shift change. Patient exhibited the following behavior Disorganized, Combative, Resistive. Brief assessment on rounds of vital signs, medication needs, lab studies, and pain. Treatment plan problems 1-2. Intervention: Patient assessed and the following interventions initiated safety checks 15 Minute Checks Cognitive Assessment , Head to toe Assessment , Medications. Response: After interactions and interventions patient responded in the following manner, Disorganized, Somatic, Anxious. Continue to assess behaviors and condition will continue to monitor throughout the shift as needed. Plan: Continue to monitor Master Treatment Plan for patient's progress toward short term goals of Decreased Anxiety, Medication Compliance, [facility] goals to return to previous living setting vs placement. Continue to assess patient for changes in above assessment. Monitor for medication needs, pain, and safety concerns. Hourly rounding performed to ensure safe environment.
[2016-12-11] MEDS: ACETAMINOPHEN 325 MG TABLET PO SCH ×2 (06:00→17:03)
[2016-12-11 06:03] VITALS: BP 108/65
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
[2016-12-11] MEDS: MULTIVITAMIN with MINERAL TABLET. PO SCH (07:56)
[2016-12-11] MEDS: SENNOSIDES/DOCUSATE 8.6/50MG TABLET. PO SCH ×2 (07:56→19:13)
[2016-12-11] MEDS: CHOLECALCIFEROL (VITAMIN D3) 1,000 UNIT TABLET PO SCH (07:56)
[2016-12-11] MEDS: QUEtiapine 25 MG TABLET. PO SCH ×3 (07:57→17:00)
[2016-12-11] MEDS: NICOTINE 14MG PATCH. TD SCH (07:57)
[2016-12-11] MEDS: busPIRone 10 MG TABLET. PO SCH ×2 (07:57→16:17)
[2016-12-11] MEDS: DIVALPROEX 125 MG CAP.SPRINK PO SCH ×3 (07:57→19:13)
[2016-12-11] MEDS: ASPIRIN 81 MG TAB.CHEW PO SCH (07:57)
[2016-12-11] MEDS: DONEPEZIL HCL 5 MG TABLET. PO SCH (07:57)
[2016-12-11] MEDS: ESCITALOPRAM 5 MG TABLET PO SCH (09:00)
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
--- NOTE | 2016-12-11 10:19 | NUR ---
Behavior Intervention Response and Plan: BIRP Note: Behavior: Assumed Care of patient, patient located in Dining Room at shift change. Patient exhibited the following behavior Disorganized, Defensive, Compliant. Brief assessment on rounds of vital signs, medication needs, lab studies, and pain. Treatment plan problems . Intervention: Patient assessed and the following interventions initiated safety checks 15 Minute Checks Cognitive Assessment , Head to toe Assessment , Medications. Response: After interactions and interventions patient responded in the following manner, Calm , Disorganized ,Cooperative. Continue to assess behaviors and condition will continue to monitor throughout the shift as needed. 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 Continue to assess patient for changes in above assessment. Monitor for medication needs, pain, and safety concerns. Hourly rounding performed to ensure safe environment.
--- NOTE | 2016-12-11 11:10 | NUR ---
THERAPEUTIC RECREATION GROUP NOTE TITLE :Movement to Music: Flexibility ACTIVITY : Movement/ Exercise GOAL : Increase morale, attention, flexibility. Decrease stress/anxiety. DURATION : 20 Minutes RESPONSE : No participation.
--- NOTE | 2016-12-11 14:00 | NUR ---
THERAPEUTIC RECREATION GROUP NOTE TITLE :Sing along with Stella ACTIVITY : Music GOAL : Increase socialization, elevate mood, stimulate memory DURATION : 60 minutes RESPONSE : Minimal participation. Pt. stayed in the room the entire time; however, had difficulty staying seated and following directions. She was given a maraca to play along with music but she tried to put it in her mouth. She had a concerned look on her face nearly the entire time. She danced with [employer] MA[employer] towards the end and seemed to relax a little.
--- NOTE | 2016-12-11 14:43 | NUR ---
[facility] Social Work Discharge Planning Form Patient Name LINDA JERONIMO Admit Date: 11/24/16 DISCHARGE PLAN [facility] Facility to order picker 12/12/16 at 10:00 DISCHARGE TO FACILITY Facility: [facility] Address: [facility] [address], [place] [address] Contact Name: PCP: at facility w/in 10-12 days of dc Psychiatrist: at facility w/in 10-12 days of dc
[2016-12-11 15:50] VITALS: BP 140/74
[2016-12-11] MEDS: ATORVASTATIN CALCIUM 10 MG TABLET. PO SCH (19:13)
[2016-12-11] MEDS: MIRTAZAPINE 30 MG TABLET PO SCH (19:13)
--- NOTE | 2016-12-11 23:33 | NUR ---
Behavior Intervention Response and Plan: BIRP Note: Behavior: Assumed Care of patient, patient located in Day Room at shift change. Patient exhibited the following behavior Resistive, Withdrawn, Drowsy. Brief assessment on rounds of vital signs, medication needs, lab studies, and pain. Treatment plan problems 1 and 2. Intervention: Patient assessed and the following interventions initiated safety checks 15 Minute Checks Cognitive Assessment , Head to toe Assessment , Medications. Response: After interactions and interventions patient responded in the following manner, Calm , Disorganized ,Cooperative. Continue to assess behaviors and condition will continue to monitor throughout the shift as needed. 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 Continue to assess patient for changes in above assessment. Monitor for medication needs, pain, and safety concerns. Hourly rounding performed to ensure safe environment.
[2016-12-12] MEDS ORDERED: ACET325T9 PO (01:22)
[2016-12-12] MEDS ORDERED: [UNRECOGNIZED DRUG - CODE] TP (01:27)
[2016-12-12] MEDS ORDERED: IBUP400T18 PO (01:28)
[2016-12-12] MEDS ORDERED: MAG355OR17 PO (01:30)
[2016-12-12] MEDS ORDERED: MAGN2400 PO (01:30)
[2016-12-12] MEDS ORDERED: METH29OI TP (01:31)
[2016-12-12] MEDS ORDERED: NICO1PAT25 TD (01:33)
[2016-12-12] MEDS ORDERED: OLAN5TAB5 PO (01:35)
[2016-12-12] MEDS ORDERED: PHEN177S8 PO (01:36)
[2016-12-12] MEDS ORDERED: ESCITALOPRAM OX10 MG PO (01:39)
[2016-12-12] MEDS ORDERED: DONE5TAB7 PO (01:39)
[2016-12-12] MEDS ORDERED: MIRT30TA3 PO (01:40)
[2016-12-12] MEDS ORDERED: QUET25TA5 PO (01:43)
[2016-12-12] MEDS ORDERED: BUSP10TA PO (01:45)
[2016-12-12 05:51] VITALS: BP 124/66
[2016-12-12] MEDS: ACETAMINOPHEN 325 MG TABLET PO SCH (06:00)
[2016-12-12 06:58] LABS: BASO # 0.1 x10^3/uL (0.0-0.2); BASO % 1 % (0-3); EOS # 0.2 x10^3/uL (0.0-0.7); EOS % 3 % (0-3); HEMATOCRIT 37.1 % (36.0-47.0); HEMOGLOBIN 12.1 g/dL (12.0-15.5); LYMPH % 30 % (24-48); MEAN CORPUSCULAR HEMOGLOBIN 30 pg (25-35); MEAN CORPUSCULAR HGB CONC 33 g/dL (31-37); MEAN CORPUSCULAR VOLUME 92 fL (79-100); MONO # 0.8 x10^3/uL (0.0-1.1); MONO % 13 % (0-9); NEUT # 3.5 x10^3uL (1.8-7.7); NEUT % 53 % (31-73); PLATELET COUNT 217 x10^3/uL (140-400); RED BLOOD COUNT 4.06 x10^6/uL (3.50-5.40); RED CELL DISTRIBUTION WIDTH 15.5 % (11.5-14.5); WHITE BLOOD COUNT 6.7 x10^3/uL (4.0-11.0)
[2016-12-12 07:06] LABS: ALBUMIN 3.2 g/dL (3.4-5.0); ALBUMIN/GLOBULIN RATIO 0.9 (1.0-1.7); ALK PHOS 59 U/L (46-116); ALT (SGPT) 18 U/L (14-59); ANION GAP 5 (6-14); AST (SGOT) 18 U/L (15-37); BLOOD UREA NITROGEN 16 mg/dL (7-20); BUN/CREATININE RATIO 20 (6-20); CARBON DIOXIDE 32 mmol/L (21-32); CHLORIDE 107 mmol/L (98-107); CREATININE 0.8 mg/dL (0.6-1.0); GFR 72.2; GLUCOSE 87 mg/dL (70-99); MAGNESIUM 2.5 mg/dL (1.8-2.4); POTASSIUM 4.8 mmol/L (3.5-5.1); SODIUM 144 mmol/L (136-145); TOTAL BILIRUBIN 0.2 mg/dL (0.2-1.0); TOTAL PROTEIN 6.8 g/dL (6.4-8.2); VAL ACID 51 mcg/mL (50-100)
[2016-12-12] MEDS ORDERED: ESCITALOPRAM 10 MG TABLET. PO SCH (09:00)
--- NOTE | 2016-12-12 09:00 | NUR ---
Behavior Intervention Response and Plan: BIRP Note: Behavior: Assumed Care of patient, patient located in Hallway at shift change. Patient exhibited the following behavior Wandering, Disorganized, Cooperative. Brief assessment on rounds of vital signs, medication needs, lab studies, and pain. Treatment plan problems 1 and 2. Intervention: Patient assessed and the following interventions initiated safety checks 15 Minute Checks Cognitive Assessment , Head to toe Assessment , Medications. Response: After interactions and interventions patient responded in the following manner, Calm , Wandering ,Disorganized. Continue to assess behaviors and condition will continue to monitor throughout the shift as needed. Plan: Continue to monitor Master Treatment Plan for patient's progress toward short term goals of Decreased Aggression, Decreased Anxiety, group home goals to return to previous living setting vs placement. Continue to assess patient for changes in above assessment. Monitor for medication needs, pain, and safety concerns. Hourly rounding performed to ensure safe environment.
[2016-12-12] MEDS: DIVALPROEX 125 MG CAP.SPRINK PO SCH (09:42)
[2016-12-12] MEDS: NICOTINE 14MG PATCH. TD SCH (09:42)
[2016-12-12] MEDS: CHOLECALCIFEROL (VITAMIN D3) 1,000 UNIT TABLET PO SCH (09:42)
[2016-12-12] MEDS: DONEPEZIL HCL 5 MG TABLET. PO SCH (09:43)
[2016-12-12] MEDS: busPIRone 10 MG TABLET. PO SCH (09:43)
[2016-12-12] MEDS: ASPIRIN 81 MG TAB.CHEW PO SCH (09:43)
[2016-12-12] MEDS: QUEtiapine 25 MG TABLET. PO SCH (09:43)
[2016-12-12] MEDS: SENNOSIDES/DOCUSATE 8.6/50MG TABLET. PO SCH (09:43)
[2016-12-12] MEDS: MULTIVITAMIN with MINERAL TABLET. PO SCH (09:43)
--- NOTE | 2016-12-12 10:00 | NUR ---
Patient discharged to [facility]. Patient reluctant to climb up stairs to bus. Eventually assisted onto bus with two staff on lift. Bucked into seatbelt for safety.
--- NOTE | 2016-12-12 11:24 | NUR ---
Discharge Note [facility] Follow up Appointment made: PCP and psychiatry at facility Tobacco Hotline called with patient prior to discharge, Tobacco cessation medication listed with current medications for discharge. Patient is severely demented and unable to hold conversation. Oriented to self only, word salad for speech. Date and Time instructions and Social work discharge planning sheet sent to next level of care: 1000 12/12/16 Follow up Appointment made: at facility per social work [facility] contact Number for 24 hour support [phone] Discharge Packet Sent, and discusssed with patient and caregiver that includes Copies from the record of current medications with indications and frequencies, history and physical, Psychiatric Eval, Lab values, Radiology results , follow up instructions for continuation of care, and Social work discharge planning sheet to: [facility] Discharge Packet Faxed to Provider/Next Level of Care: yes Discharge Packet Discussed with: nurse Clara at [facility] Any Pending lab results can be obtained by calling [phone] Discharge Summary will be sent to next care provider when available. This includes the reason for admission, DC diagnosis, and next level of care recommendations.
== END 2016-12-12 10:00 | DRG 884 ==
LOC: ER 15:01 → GEROPSY 19:40
PROVIDERS: ADMIT Psychiatry & Neurology Psychiatry; ATTEND Psychiatry & Neurology Psychiatry
DX: F01.51 Vascular dementia, unspecified severity, with behavioral disturbance (principal); F02.81 Dementia in other diseases classified elsewhere, unspecified severity, with behavioral disturbance; E44.1 Mild protein-calorie malnutrition; Z68.1 Body mass index [BMI] 19.9 or less, adult; Z66 Do not resuscitate; G30.9 Alzheimer's disease, unspecified; E78.5 Hyperlipidemia, unspecified; F32.9 Major depressive disorder, single episode, unspecified; F41.9 Anxiety disorder, unspecified; F63.9 Impulse disorder, unspecified; D64.9 Anemia, unspecified; H90.5 Unspecified sensorineural hearing loss; K05.10 Chronic gingivitis, plaque induced; M81.0 Age-related osteoporosis without current pathological fracture; M19.90 Unspecified osteoarthritis, unspecified site; F10.10 Alcohol abuse, uncomplicated; E55.9 Vitamin D deficiency, unspecified; J02.9 Acute pharyngitis, unspecified; Z79.899 Other long term (current) drug therapy; Z82.0 Family history of epilepsy and other diseases of the nervous system
CPT/HCPCS: 36415; 80053; 80061; 80164; 81001; 82306; 82607; 82947; 83036; 83540; 83550; 83735; 84436; 84443; 84480; 85027; 86592; 86593; 96372; 99407; J2060; 99285-25